=== PATIENT | male | born 1945 | race Caucasian/White ===

== ENCOUNTER 2017-05-28 17:51 | Inpatient (IN) | payer MEDICAID ==
[2017-05-28] MEDS: DOPamine 400mg/250ml D5W 400 MG/250 ML BAG IV PRN (18:00)
[2017-05-28] MEDS ORDERED: Phenylephrine 10 mg/ml Inj ONE (18:04)
[2017-05-28] MEDS ORDERED: Midazolam 2 MG/2 ML VIAL ONE (18:04)
[2017-05-28] MEDS ORDERED: Iodixanol 320 MG/ML 200 ML BOTTLE IV ONE (18:05)
[2017-05-28] MEDS ORDERED: Nitroglycerin 50mg in D5W 0 MG/0 ML BOTTLE IV ONE (18:05)
[2017-05-28 18:07] LABS: BASO % 0.5 % (0.0-2.0); EOS # 0.1 K/uL (0.0-0.7); EOS % 1.1 % (0.0-4.0); HEMATOCRIT 33.4 % (35.0-51.0); LYMPH # 3.1 K/uL (1.0-4.3); LYMPH % 35.4 % (20.0-40.0); MEAN PLATELET VOLUME 8.7 fL (7.2-11.7); MONO # 0.6 K/uL (0.0-0.8); MONO % 6.7 % (0.0-10.0); NRBC % 0.1 % (0.0-2.0); RED CELL DISTRIBUTION WIDTH 15.3 % (11.5-14.5); WHITE BLOOD COUNT 8.7 K/uL (4.8-10.8)
[2017-05-28] MEDS ORDERED: DOPamine 400mg/250ml D5W 400 MG/250 ML BAG IV ONE (18:10)
[2017-05-28 18:27] LABS: CHLORIDE 99 mmol/L (98-107); SODIUM 130 mmol/L (132-148)
[2017-05-28 18:28] LABS: POTASSIUM 4.8 mmol/L (3.6-5.2)
[2017-05-28 18:30] LABS: ALB/GLOB RATIO 1.2 (1.0-2.1); ALKALINE PHOSPHATASE 45 U/L (38-126); AST/SGOT 49 U/L (17-59); BILIRUBIN,TOTAL 0.6 mg/dL (0.2-1.3); BLOOD UREA NITROGEN 15 mg/dL (9-20); CARBON DIOXIDE 17 mmol/L (22-30); GFR AFRICAN-AMERICAN > 60
[2017-05-28 18:31] LABS: ALT/SGPT 30 U/L (21-72); CALCIUM 8.5 mg/dl (8.6-10.4)
[2017-05-28 18:32] LABS: GLUCOSE,RANDOM 441 mg/dL (75-110)
[2017-05-28] MEDS ORDERED: Etomidate 20 mg/10ml Inj IV ONE ×2 (18:53→20:04)
[2017-05-28] MEDS ORDERED: Rocuronium 10 mg/ml (5 ml) IV ONE ×2 (18:53→20:04)
[2017-05-28] MEDS ORDERED: Iodixanol 320 MG/ML 100 ML BOTTLE IV ONE (19:02)
[2017-05-28] MEDS ORDERED: Atropine Sulfate 1 mg/ml Vial (1 ml) IVP ONE (20:04)
--- NOTE | 2017-05-28 20:58 | C.PDOC ---
History Of Present Illness 71 y/o male, with PMHx of HTN and Hyperlipidemia, presents to the ED via EMS for evaluation of chest pain which began prior to arrival. EMS was called on site and notification was given regarding a code heart prior to patient's arrival. Upon ED arrival, patient was found to be diaphoretic, hypotensive, and lethargic, bradycardic. Patient was intubated upon arrival. atropine, transcutaneous pacing initiated. limited hx provided. Additional history limited secondary to patient's clinical condition. Time Seen by Provider: 05/28/17 17:54 Chief Complaint (Nursing): Chest Pain History Per: Patient, EMS History/Exam Limitations: clinical condition Onset/Duration Of Symptoms: Hrs Current Symptoms Are (Timing): Still Present Quality: "Pain" Associated Symptoms: Diaphoresis Additional History Per: Patient, EMS Past Medical History Reviewed: Historical Data, Nursing Documentation, Vital Signs Vital Signs: Last Vital Signs Temp 99 F 05/31/17 04:00 Pulse 170 H 05/31/17 07:49 Resp 31 H 05/31/17 07:08 BP 121/90 05/31/17 07:49 Pulse Ox 100 05/31/17 07:08 - Medical History PMH: HTN, Hyperlipidemia Surgical History: No Surg Hx Family History: States: Unknown Family Hx - Social History Hx Alcohol Use: No Hx Substance Use: No Review Of Systems Review Of Systems: ROS cannot be obtained secondary to pt's inabilty to answer questions. Physical Exam - Physical Exam Appears: Non-toxic Skin: Normal Color, Warm, Dry Head: Atraumatic, Normacephalic Eye(s): bilateral: Normal Inspection Oral Mucosa: Moist Neck: Supple Chest: Symmetrical, No Deformity, No Tenderness Respiratory: Rales (crackles at bases ) Extremity: Normal ROM, Capillary Refill (less than 2 seconds ) Neurological/Psych: Oriented x3, Normal Speech, Normal Cognition Gait: Unable To Assess ED Course And Treatment - Laboratory Results Result Diagrams: 05/31/17 06:18 05/31/17 06:16 O2 Sat by Pulse Oximetry: 100 (on RA) Pulse Ox Interpretation: Normal Critical Care Time - Critical Care Note Total Time (in mins): 90 Documented critical care: time excludes all time spent performing seperately billable procedures. Endotracheal Intubation - Endotracheal Intubation Intubated With ETT Size: 8 Intubated: Orally Pre-Intubation Airway Assessment: Ventilated And Oxygenated Medications Used During Pre-Intubation: Etomidate Paralyzed With: Rocuronium Post-Intubation Assessment: ETT Secured AT (cm): (23), Breath Sounds Equal Bilat , Color Change W/End Tidal CO2 Detector, Oxygen Saturation: (100) Medical Decision Making Medical Decision Making: coide heart activation- pt bradycardic, lethargic. atropine and transcutanous pacing initiated. dr saravia bedside. central venous access placed. Impression: 71y/o male with chest pain Plan: * labs * EKG * CXR Progress: labs, EKG, and CXR ordered and reviewed. etomidate IV, Aspirin PO, Brilinta PO, Dopamine IV, Heparin IV, androcurunium IV ordered. Patient underwent transcutaneous cardiac pacing. Case discussed with Dr. Saravia (chemical production technician), who later arrived in ED. Patient underwent intubation and was accepted to hospital admission under Dr. Ramos's service. Dr. Hutchison made aware. Patient was transported to labeling machine operator with hospitalist and labeling machine operator team on bedside. Disposition - Disposition Disposition: HOSPITALIZED Disposition Time: 07:00 Condition: CRITICAL - Clinical Impression Clinical Impression: STEMI (ST elevation myocardial infarction), Cardiogenic shock, Bradycardia - Scribe Statement The provider has reviewed the documentation as recorded by the Scribe (Enedina Amanda) Provider Attestation: All medical record entries made by the Scribe were at my direction and personally dictated by me. I have reviewed the chart and agree that the record accurately reflects my personal performance of the history, physical exam, medical decision making, and the department course for this patient. I have also personally directed, reviewed, and agree with the discharge instructions and disposition.
--- NOTE | 2017-05-28 22:17 | CP.PCM.CON ---
History of Present Illness - History of Present Illness History of Present Illness: 71 y/o male, with PMHx of HTN ,DM and Hyperlipidemia, presents to the ED via EMS for evaluation of chest pain which began prior to arrival. Upon ED arrival, patient was found to be diaphoretic, hypotensive, and lethargic. Patient was intubated in ER . Code heart intiated,patient had Cardiac Cath,insertion of transvenous pacemaker,IABP and 2 stents. History from chart.Patient intubated unable to get history.Unable to contact family Past Patient History - Past Social History Smoking Status: poor histo - CARDIAC Hx Hypertension: Yes - ENDOCRINE/METABOLIC Hx Diabetes Mellitus Type 2: Yes - PSYCHIATRIC Hx Substance Use: No Meds Allergies/Adverse Reactions: Allergies Allergy/AdvReac Type Severity Reaction Status Date / Time No Known Allergies Allergy Unverified 05/28/17 18:38 - Medications Medications: Current Medications Dopamine HCl/Dextrose (Dopamine 400mg/250ml D5w) 400 mg in 250 mls @ 6 mls/hr IV .Q24H PRN; Protocol; 2 MCG/KG/MIN PRN Reason: TITRATE PER MD ORDER Last Admin: 05/28/17 18:00 Dose: 2 mcg/kg/min, 6 mls/hr Physical Exam - Constitutional Appears: Other Additional comments: Orally intubated.no response to pain or verbal commands - Head Exam Head Exam: ATRAUMATIC, NORMAL INSPECTION, NORMOCEPHALIC - Eye Exam Additional comments: pupils equal with sluggish reaction to light - ENT Exam ENT Exam: Mucous Membranes Moist - Neck Exam Neck exam: Positive for: Normal Inspection - Respiratory Exam Respiratory Exam: Clear to Auscultation Bilateral - Cardiovascular Exam Cardiovascular Exam: Tachycardia, Systolic Murmur - GI/Abdominal Exam GI & Abdominal Exam: Normal Bowel Sounds, Soft - Extremities Exam Extremities exam: Negative for: pedal edema Additional comments: left leg in dressing. no edema.left DP pulse heard on doppler - Neurological Exam Neurological exam: Altered - Skin Skin Exam: Intact Results - Vital Signs Recent Vital Signs: Last Vital Signs Temp 96.1 F L 05/28/17 17:55 Pulse 40 L 05/28/17 18:00 Resp 16 05/28/17 18:00 BP 70/41 L 05/28/17 18:00 Pulse Ox 100 05/28/17 21:47 - Labs Result Diagrams: 05/28/17 18:02 05/28/17 18:02 - EKG Data EKG Interpreted by: Myself - Imaging and Cardiology Chest x-ray Status: Pending Assessment & Plan - Assessment and Plan (Free Text) Assessment: ^[age] y/o male with HTN,DM,Hyperlipidemia brought in with chest pain s/p Cardiac cath 1.Cardiac CAD/DE Code Heart/HTN/Hyperlipidemia s/p 2 stents , Transvenous pacemaker and IABP Patient hypotensive in ER,dopamine started,tapered and Discontinued after stents. Plavix ,aspirin given discussed with Mend Worker Start beta blockers tomorrow if BP remains stable 2.Pulmonary Respiratory failure on Ventilator pt hypothermic with low saturation.ABG with metabolic acidosis and SaO2 of 98% Chest Xray 3.Endocrine DM-insulin coverage 4.Neuro- patient with sluggish pupillary reaction with spontaneous respirations
[2017-05-28 23:24] LABS: BASO # 0.1 K/uL (0.0-0.2); BASO % 0.5 % (0.0-2.0); EOS % 0.2 % (0.0-4.0); HEMATOCRIT 34.2 % (35.0-51.0); LYMPH % 8.1 % (20.0-40.0); MEAN CORPUSCULAR HEMOGLOBIN 29.6 pg (27.0-31.0); MEAN CORPUSCULAR HGB CONC 32.5 g/dL (33.0-37.0); MEAN PLATELET VOLUME 8.5 fL (7.2-11.7); MONO % 7.8 % (0.0-10.0); PLATELET COUNT 110 K/uL (130-400); RED CELL DISTRIBUTION WIDTH 15.6 % (11.5-14.5); WHITE BLOOD COUNT 12.2 K/uL (4.8-10.8)
[2017-05-28 23:32] LABS: CHLORIDE 100 mmol/L (98-107); SODIUM 131 mmol/L (132-148)
[2017-05-28 23:34] LABS: GFR AFRICAN-AMERICAN > 60
[2017-05-28 23:35] LABS: BLOOD UREA NITROGEN 17 mg/dL (9-20); CALCIUM 7.8 mg/dl (8.6-10.4); CARBON DIOXIDE 19 mmol/L (22-30); POTASSIUM 6.1 mmol/L (3.6-5.2)
[2017-05-28] MEDS: (Novolin R) Insulin Human Regular 100 units/ml vial SC SCH (23:37)
[2017-05-28 23:40] LABS: GLUCOSE,RANDOM 510 mg/dL (75-110)
[2017-05-28 23:49] LABS: BASOPHIL 1 % (0-2); NEUTROPHIL 81 % (50-75); TOTAL CELLS COUNTED 100
[2017-05-29] MEDS ORDERED: Dextrose 50% SYRINGE Inj (50 ml) IV STA ×2 (00:35→17:47)
[2017-05-29] MEDS ORDERED: (Novolin R) Insulin Human Regular 100 units/ml vial IV ONE (00:35)
[2017-05-29 01:03] LABS: ABG MECHANICAL RATE 16; ARTERIAL BLOOD GAS MODE PRVC; ARTERIAL BLOOD HGB O2 SAT 97.2 % (95.0-98.0); ATERIAL BLOOD GAS PEEP 5; CARBOXYHEMOGLOBIN 1.3 % (0.5-1.5); DRAW SITE RB; HHB 0.6 % (0.0-5.0); METHEMOGLOBIN 0.9 % (0.0-3.0)
[2017-05-29] MEDS: Propofol 10 mg/ml 1,000 MG/100 ML VIAL IV PRN ×2 (01:11→18:00)
[2017-05-29] MEDS ORDERED: (Novolin R) Insulin Human Regular 100 units/ml vial SC ONE ×2 (01:49→03:12)
[2017-05-29] MEDS ORDERED: Sod Polystyrene Sulf 15 gm/60 ml Oral Susp PO ONE (03:08)
--- NOTE | 2017-05-29 03:19 | CARDCATH ---
PROCEDURE DATE: 05/29/2017 INDICATIONS: Mr. Nickolas Staples is a 71-year-old male with past medical history significant for hypertension, diabetes, hyperlipidemia, CAD, peripheral vascular disease, smoking who was brought in by EMS for episode of chest pain and concerns for ST-elevation OH. The patient in the emergency room became bradycardic, went into cardiogenic shock, requiring intubation, and central line placement for initiation of pressors and inotropic support. He was subsequently brought to the [facility] for evaluation and treatment of cardiogenic shock and acute ST-elevation OH. PROCEDURES PERFORMED: 1. Left heart catheterization with selective left and right coronary angiogram. 2. Left ventriculogram. 3. Right heart catheterization with hemodynamics, saturation, intraaortic balloon pump. 4. Temporary transvenous pacemaker. 5. Percutaneous transluminal coronary angioplasty stenting of left circumflex coronary artery with deployment of 3.5 x 18 mm Xience drug-eluting stent x2 with degeneration from 100% down to less than 0% improvement in BREANNA flow from BREANNA 0 to BREANNA 3. TECHNIQUES OF PROCEDURE: After obtaining informed consent, the patient was brought in emergently from the emergency room to the [facility] and underwent an emergent left heart catheterization. Selective angiogram of the left and right coronary system were obtained. ANGIOGRAPHIC FINDINGS: The left main is a short bifurcation to the left circumflex with left anterior descending artery. Ostial LAD has 65% stenosis, mid LAD 50% stenosis. It gives off two small diagonal branches. The distal LAD has 70% stenosis. The left circumflex proximal 100% BREANNA flow with BREANNA 0 flow. RCA small, nondominant with proximal 100% PACKING AND STAMPING MACHINE OPERATOR. Subsequently intraaortic balloon pump was placed for hemodynamic support. At this point, over an EBU 6-Icelandic guide Whisper wire was negotiated through the 100% occluded left circumflex artery. Pre-dilatation of the lesion was done with good pentecostalism of flow in the left circumflex, the same was a large left dominant system. Subsequently, the lesion was pre dilated with balloons and then subsequently stented with a 3.5 x 18 mm Xience drug-eluting stent x2. Finally, angiograms done showed good lesion reduction and BREANNA 3 flow in the circumflex territory. At this point, a right heart catheterization was performed, which showed RA pressures, mean were 22, RV end-diastolic 24, PA mean 46 with a wedge of 39. Cardiac output was 6.2 with a cardiac index of 3.6. IMPRESSION: 1. Acute ST-elevation myocardial infarction involving the circumflex coronary artery. 2. Acute cardiogenic shock. 3. Decompensated heart failure. 4. Left ventricular ejection fraction of 30% to 35% with inferoseptal and inferolateral wall hypokinesis. RECOMMENDATIONS: The patient is to be transferred to ICU in critical condition on intra-aortic balloon pump support, inotropic and pressor support as needed. Dual-antiplatelet therapy for 1 year. Further titration based on clinical response and hemodynamic course. Rhys Gu MD MTDD
[2017-05-29 05:16] LABS: ABG MECHANICAL RATE 16; ARTERIAL BLOOD GAS MODE PRVC; ARTERIAL BLOOD HGB O2 SAT 96.9 % (95.0-98.0); ATERIAL BLOOD GAS PEEP 5; DRAW SITE RB; METHEMOGLOBIN 1.1 % (0.0-3.0)
[2017-05-29] MEDS: (Novolin R) Insulin Human Regular 100 units/ml vial SC SCH ×3 (06:08→18:02)
[2017-05-29 06:30] LABS: BASO % 0.2 % (0.0-2.0); EOS % 0.3 % (0.0-4.0); HEMATOCRIT 34.1 % (35.0-51.0); LYMPH # 0.6 K/uL (1.0-4.3); MEAN CELL VOLUME 90.3 fL (80.0-94.0); MEAN CORPUSCULAR HGB CONC 33.2 g/dL (33.0-37.0); MEAN PLATELET VOLUME 9.3 fL (7.2-11.7); MONO # 0.8 K/uL (0.0-0.8); MONO % 9.1 % (0.0-10.0); NRBC % 0.1 % (0.0-2.0); PLATELET COUNT 118 K/uL (130-400); RED CELL DISTRIBUTION WIDTH 15.8 % (11.5-14.5); WHITE BLOOD COUNT 8.4 K/uL (4.8-10.8)
--- NOTE | 2017-05-29 07:01 | RAD ---
PROCEDURE: CHEST RADIOGRAPH, 1 VIEW HISTORY: intubated COMPARISON: None available. FINDINGS: Endotracheal tube is in placed terminating several cm above the aguila above below the level of clavicles. The J-tube is in place terminate at the left upper quadrant abdomen. . LUNGS: Left perihilar, lateral and retrocardiac infiltrate is identified, borderline in the right perihilar region. PLEURA: No pneumothorax or pleural fluid seen. CARDIOVASCULAR: Borderline pulmonary venous congestion. Cardiac silhouette upper limits of normal. OSSEOUS STRUCTURES: No significant abnormalities. VISUALIZED UPPER ABDOMEN: Normal. OTHER FINDINGS: None. IMPRESSION: Mid to inferior left pulmonary infiltrates are identified as well as possible right perihilar infiltrate. CHF is borderline and not completely excluded. Clinically correlate further. No pneumothorax or pleural effusion.
[2017-05-29 07:03] LABS: ALB/GLOB RATIO 1.1 (1.0-2.1); BILIRUBIN,TOTAL 0.4 mg/dL (0.2-1.3); CALCIUM 8.3 mg/dl (8.6-10.4); MAGNESIUM 1.6 mg/dL (1.6-2.3); PHOSPHOROUS 3.8 mg/dL (2.5-4.5); POTASSIUM 5.7 mmol/L (3.6-5.2)
--- NOTE | 2017-05-29 08:16 | CP.CCUPN ---
<Perfecto Veliz - Last Filed: 05/29/17 15:31> CCU Subjective - Physician Review Subjective (Free Text): Patient seen and examined at bedside. Per nurse, patient has dark brown secretions from feeding tube and medications cannot be given orally. He is intubated and sedated therefore subjective history was unable to be obtained because of current status. Medical records, labs and imaging were reviewed. Case was discussed with house staff. Patient's family is aware and will be visiting today. 05/29/17 15:31 CCU Objective - Vital Signs / Intake & Output Vital Signs (Last 4 hours): Vital Signs Temp Pulse Resp BP Pulse Ox 05/29/17 07:45 121 H 28 H 72/59 L 100 05/29/17 07:01 101 H 30 H 97/50 L 100 05/29/17 07:00 98.4 F 107 H 32 H 98 05/29/17 06:46 111 H 30 H 109/66 99 05/29/17 06:45 118 H 30 H 99 05/29/17 06:31 112 H 31 H 111/53 L 98 05/29/17 06:30 116 H 30 H 98 05/29/17 06:16 82 31 H 112/50 L 96 05/29/17 06:15 87 31 H 99 05/29/17 06:01 95 H 40 H 94/53 L 98 05/29/17 06:00 94 H 40 H 98 05/29/17 05:46 99 H 30 H 120/53 L 97 05/29/17 05:45 106 H 27 H 98 05/29/17 05:31 118 H 28 H 107/62 100 05/29/17 05:30 116 H 29 H 100 05/29/17 05:16 92 H 29 H 105/52 L 100 05/29/17 05:15 100 H 28 H 100 05/29/17 05:01 102 H 28 H 105/61 100 05/29/17 05:00 89 29 H 100 05/29/17 04:46 83 30 H 104/44 L 100 05/29/17 04:45 89 29 H 100 05/29/17 04:32 82 29 H 111/47 L 98 05/29/17 04:30 82 28 H 97 05/29/17 04:16 85 29 H 118/50 L 97 05/29/17 04:15 82 29 H 96 Intake and Output (Last 8hrs): Intake & Output 05/28/17 05/29/17 05/29/17 22:59 06:59 14:59 Intake Total 50 402.2 229.7 Output Total 60 750 25 Balance -10 -347.8 204.7 Weight 168 lb 12.8 oz Intake: IV 64 190 Intake, IV Amount 238.2 39.7 Right Medial Port Femoral 13.2 2.2 Right Proximal Port 225.0 37.5 Femoral Oral 50 0 Tube Feeding 100 0 Output: Urine 60 750 25 Urethral (Sifuentes) 60 750 25 Stool 0 0 Emesis 0 0 0 Other: Voiding Method Indwelling Catheter # Bowel Movements 0 0 - Medications Active Medications: Active Medications Generic Name Dose Route Start Last Admin Trade Name Freq PRN Reason Stop Dose Admin Aspirin 81 mg 05/29/17 10:00 Ecotrin PO DAILY [facility] Clopidogrel Bisulfate 75 mg 05/29/17 10:00 Plavix PO DAILY [facility] Famotidine 20 mg 05/28/17 22:45 05/28/17 23:28 Pepcid PO 20 mg BID [facility] Administration Dopamine HCl/Dextrose 400 mg in 250 mls @ 6 mls/hr 05/28/17 20:04 05/28/17 18 :00 Dopamine 400mg/250ml D5w IV 2 mcg/kg/min .Q24H PRN 6 mls/hr TITRATE PER MD ORDER Administration Protocol 2 MCG/KG/MIN Norepinephrine Bitartrate 4 mg 254 mls @ 15.24 mls/hr 05/28/17 23:08 07:45 / Sodium Chloride IV 11.81 mcg/min .[id number] PRN 45 mls/hr TITRATE PER MD ORDER Administration Protocol 4 MCG/MIN Propofol 1,000 mg in 100 mls @ 2.4 mls/hr 05/29/17 01:00 05/29/17 01:11 Diprivan IV 5 mcg/kg/min .Q24H PRN 2.4 mls/hr TITRATE PER MD ORDER Administration Protocol 5 MCG/KG/MIN Insulin Human Regular 0 unit 05/29/17 00:00 05/29/17 06:08 Novolin R SC 6 unit Q6 [facility] Administration Protocol Rosuvastatin Calcium 20 mg 05/29/17 22:00 Crestor PO HS [facility] - Patient Studies Lab Studies: Lab Studies 05/29/17 05/29/17 05/29/17 Range/Units 06:22 06:22 06:22 WBC 8.4 (4.8-10.8) K/uL RBC 3.78 L (4.40-5.90) Mil/uL Hgb 11.3 L (12.0-18.0) g/dL Hct 34.1 L (35.0-51.0) % MCV 90.3 (80.0-94.0) fL MCH 30.0 (27.0-31.0) pg MCHC 33.2 (33.0-37.0) g/dL RDW 15.8 H (11.5-14.5) % Plt Count 118 L (130-400) K/uL MPV 9.3 (7.2-11.7) fL Neut % (Auto) 83.4 H (50.0-75.0) % Lymph % (Auto) 7.0 L (20.0-40.0) % [place] % (Auto) 9.1 (0.0-10.0) % Eos % (Auto) 0.3 (0.0-4.0) % Baso % (Auto) 0.2 (0.0-2.0) % Neut # 7.0 (1.8-7.0) K/uL Lymph # 0.6 L (1.0-4.3) K/uL [place] # 0.8 (0.0-0.8) K/uL Eos # 0.0 (0.0-0.7) K/uL Baso # 0.0 (0.0-0.2) K/uL Neutrophils % (Manual) (50-75) % Band Neutrophils % (0-2) % Lymphocytes % (Manual) (20-40) % Monocytes % (Manual) (0-10) % Basophils % (Manual) (0-2) % Platelet Estimate (NORMAL) Puncture Site pCO2 (35-45) mm/Hg pO2 (80-100) mm/Hg HCO3 (21-28) mmol/L ABG pH (7.35-7.45) ABG Total CO2 (22-28) mmol/L ABG O2 Saturation (95-98) % ABG Base Excess (-2.0-3.0) mmol/L ABG Hemoglobin (11.7-17.4) g/dL ABG Carboxyhemoglobin (0.5-1.5) % POC ABG HHb (Measured) (0.0-5.0) % ABG Methemoglobin (0.0-3.0) % Bhanu Test A-a O2 Difference mm/Hg Respiratory Index Hgb O2 Saturation (95.0-98.0) % Vent Mode Mechanical Rate FiO2 % Tidal Volume PEEP Sodium 135 (132-148) mmol/L Potassium 5.7 H (3.6-5.2) mmol/L Chloride 100 (98-107) mmol/L Carbon Dioxide 19 L (22-30) mmol/L Anion Gap 22 H (10-20) BUN 20 (9-20) mg/dL Creatinine 1.7 H (0.8-1.5) MG/DL Est GFR ( Amer) 49 Est GFR (Non-Af Amer) 40 POC Glucose (mg/dL) (65-110) mg/dL Random Glucose 302 H (75-110) mg/dL Hemoglobin A1c 9.4 H (4.2-6.5) % Calcium 8.3 L (8.6-10.4) mg/dl Phosphorus 3.8 (2.5-4.5) mg/dL Magnesium 1.6 (1.6-2.3) mg/dL Total Bilirubin 0.4 (0.2-1.3) mg/dL ALT 383 H D (21-72) U/L Alkaline Phosphatase 60 (38-126) U/L Troponin I (0.00-0.120) ng/mL Total Protein 6.0 L (6.3-8.3) g/dL Albumin 3.2 L (3.5-5.0) g/dL Globulin 2.9 (2.2-3.9) gm/dL Albumin/Globulin Ratio 1.1 (1.0-2.1) 05/29/17 05/29/17 05/29/17 Range/Units 05:32 04:45 03:04 WBC (4.8-10.8) K/uL RBC (4.40-5.90) Mil/uL Hgb (12.0-18.0) g/dL Hct (35.0-51.0) % MCV (80.0-94.0) fL MCH (27.0-31.0) pg MCHC (33.0-37.0) g/dL RDW (11.5-14.5) % Plt Count (130-400) K/uL MPV (7.2-11.7) fL Neut % (Auto) (50.0-75.0) % Lymph % (Auto) (20.0-40.0) % [place] % (Auto) (0.0-10.0) % Eos % (Auto) (0.0-4.0) % Baso % (Auto) (0.0-2.0) % Neut # (1.8-7.0) K/uL Lymph # (1.0-4.3) K/uL [place] # (0.0-0.8) K/uL Eos # (0.0-0.7) K/uL Baso # (0.0-0.2) K/uL Neutrophils % (Manual) (50-75) % Band Neutrophils % (0-2) % Lymphocytes % (Manual) (20-40) % Monocytes % (Manual) (0-10) % Basophils % (Manual) (0-2) % Platelet Estimate (NORMAL) Puncture Site Rb pCO2 27 L (35-45) mm/Hg pO2 239 H (80-100) mm/Hg HCO3 18.1 L (21-28) mmol/L ABG pH 7.36 (7.35-7.45) ABG Total CO2 16.1 L (22-28) mmol/L ABG O2 Saturation 99.0 H (95-98) % ABG Base Excess -8.7 L (-2.0-3.0) mmol/L ABG Hemoglobin 12.1 (11.7-17.4) g/dL ABG Carboxyhemoglobin 1.0 (0.5-1.5) % POC ABG HHb (Measured) 1.0 (0.0-5.0) % ABG Methemoglobin 1.1 (0.0-3.0) % Bhanu Test Na A-a O2 Difference 226.0 mm/Hg Respiratory Index 0.9 Hgb O2 Saturation 96.9 (95.0-98.0) % Vent Mode Prvc Mechanical Rate 16 FiO2 70.0 % Tidal Volume 500 PEEP 5 Sodium (132-148) mmol/L Potassium (3.6-5.2) mmol/L Chloride (98-107) mmol/L Carbon Dioxide (22-30) mmol/L Anion Gap (10-20) BUN (9-20) mg/dL Creatinine (0.8-1.5) MG/DL Est GFR ( Amer) Est GFR (Non-Af Amer) POC Glucose (mg/dL) 334 H 340 H (65-110) mg/dL Random Glucose (75-110) mg/dL Hemoglobin A1c (4.2-6.5) % Calcium (8.6-10.4) mg/dl Phosphorus (2.5-4.5) mg/dL Magnesium (1.6-2.3) mg/dL Total Bilirubin (0.2-1.3) mg/dL ALT (21-72) U/L Alkaline Phosphatase (38-126) U/L Troponin I (0.00-0.120) ng/mL Total Protein (6.3-8.3) g/dL Albumin (3.5-5.0) g/dL Globulin (2.2-3.9) gm/dL Albumin/Globulin Ratio (1.0-2.1) 05/29/17 05/29/17 05/28/17 Range/Units 01:46 01:45 23:38 WBC (4.8-10.8) K/uL RBC (4.40-5.90) Mil/uL Hgb (12.0-18.0) g/dL Hct (35.0-51.0) % MCV (80.0-94.0) fL MCH (27.0-31.0) pg MCHC (33.0-37.0) g/dL RDW (11.5-14.5) % Plt Count (130-400) K/uL MPV (7.2-11.7) fL Neut % (Auto) (50.0-75.0) % Lymph % (Auto) (20.0-40.0) % [place] % (Auto) (0.0-10.0) % Eos % (Auto) (0.0-4.0) % Baso % (Auto) (0.0-2.0) % Neut # (1.8-7.0) K/uL Lymph # (1.0-4.3) K/uL [place] # (0.0-0.8) K/uL Eos # (0.0-0.7) K/uL Baso # (0.0-0.2) K/uL Neutrophils % (Manual) (50-75) % Band Neutrophils % (0-2) % Lymphocytes % (Manual) (20-40) % Monocytes % (Manual) (0-10) % Basophils % (Manual) (0-2) % Platelet Estimate (NORMAL) Puncture Site pCO2 (35-45) mm/Hg pO2 (80-100) mm/Hg HCO3 (21-28) mmol/L ABG pH (7.35-7.45) ABG Total CO2 (22-28) mmol/L ABG O2 Saturation (95-98) % ABG Base Excess (-2.0-3.0) mmol/L ABG Hemoglobin (11.7-17.4) g/dL ABG Carboxyhemoglobin (0.5-1.5) % POC ABG HHb (Measured) (0.0-5.0) % ABG Methemoglobin (0.0-3.0) % Bhanu Test A-a O2 Difference mm/Hg Respiratory Index Hgb O2 Saturation (95.0-98.0) % Vent Mode Mechanical Rate FiO2 % Tidal Volume PEEP Sodium (132-148) mmol/L Potassium 5.5 H (3.6-5.2) mmol/L Chloride (98-107) mmol/L Carbon Dioxide (22-30) mmol/L Anion Gap (10-20) BUN (9-20) mg/dL Creatinine (0.8-1.5) MG/DL Est GFR ( Amer) Est GFR (Non-Af Amer) POC Glucose (mg/dL) > 500 H* > 500 H* (65-110) mg/dL Random Glucose (75-110) mg/dL Hemoglobin A1c (4.2-6.5) % Calcium (8.6-10.4) mg/dl Phosphorus (2.5-4.5) mg/dL Magnesium (1.6-2.3) mg/dL Total Bilirubin (0.2-1.3) mg/dL ALT (21-72) U/L Alkaline Phosphatase (38-126) U/L Troponin I (0.00-0.120) ng/mL Total Protein (6.3-8.3) g/dL Albumin (3.5-5.0) g/dL Globulin (2.2-3.9) gm/dL Albumin/Globulin Ratio (1.0-2.1) 05/28/17 05/28/17 Range/Units 23:22 23:22 WBC 12.2 H (4.8-10.8) K/uL RBC 3.76 L (4.40-5.90) Mil/uL Hgb 11.1 L (12.0-18.0) g/dL Hct 34.2 L (35.0-51.0) % MCV 91.0 (80.0-94.0) fL MCH 29.6 (27.0-31.0) pg MCHC 32.5 L (33.0-37.0) g/dL RDW 15.6 H (11.5-14.5) % Plt Count 110 L D (130-400) K/uL MPV 8.5 (7.2-11.7) fL Neut % (Auto) 83.4 H (50.0-75.0) % Lymph % (Auto) 8.1 L (20.0-40.0) % [place] % (Auto) 7.8 (0.0-10.0) % Eos % (Auto) 0.2 (0.0-4.0) % Baso % (Auto) 0.5 (0.0-2.0) % Neut # 10.2 H (1.8-7.0) K/uL Lymph # 1.0 (1.0-4.3) K/uL [place] # 1.0 H (0.0-0.8) K/uL Eos # 0.0 (0.0-0.7) K/uL Baso # 0.1 (0.0-0.2) K/uL Neutrophils % (Manual) 81 H (50-75) % Band Neutrophils % 1 (0-2) % Lymphocytes % (Manual) 12 L (20-40) % Monocytes % (Manual) 5 (0-10) % Basophils % (Manual) 1 (0-2) % Platelet Estimate Slightly decreased L (NORMAL) Puncture Site pCO2 (35-45) mm/Hg pO2 (80-100) mm/Hg HCO3 (21-28) mmol/L ABG pH (7.35-7.45) ABG Total CO2 (22-28) mmol/L ABG O2 Saturation (95-98) % ABG Base Excess (-2.0-3.0) mmol/L ABG Hemoglobin (11.7-17.4) g/dL ABG Carboxyhemoglobin (0.5-1.5) % POC ABG HHb (Measured) (0.0-5.0) % ABG Methemoglobin (0.0-3.0) % Bhanu Test A-a O2 Difference mm/Hg Respiratory Index Hgb O2 Saturation (95.0-98.0) % Vent Mode Mechanical Rate FiO2 % Tidal Volume PEEP Sodium 131 L (132-148) mmol/L Potassium 6.1 H (3.6-5.2) mmol/L Chloride 100 (98-107) mmol/L Carbon Dioxide 19 L (22-30) mmol/L Anion Gap 18 (10-20) BUN 17 (9-20) mg/dL Creatinine 1.1 (0.8-1.5) MG/DL Est GFR ( Amer) > 60 Est GFR (Non-Af Amer) > 60 POC Glucose (mg/dL) (65-110) mg/dL Random Glucose 510 H* (75-110) mg/dL Hemoglobin A1c (4.2-6.5) % Calcium 7.8 L (8.6-10.4) mg/dl Phosphorus (2.5-4.5) mg/dL Magnesium (1.6-2.3) mg/dL Total Bilirubin (0.2-1.3) mg/dL ALT (21-72) U/L Alkaline Phosphatase (38-126) U/L Troponin I (0.00-0.120) ng/mL Total Protein (6.3-8.3) g/dL Albumin (3.5-5.0) g/dL Globulin (2.2-3.9) gm/dL Albumin/Globulin Ratio (1.0-2.1) Laboratory Results - last 24 hr 05/28/17 05/28/17 05/28/17 23:22 23:22 23:38 WBC 12.2 H RBC 3.76 L Hgb 11.1 L Hct 34.2 L MCV 91.0 MCH 29.6 MCHC 32.5 L RDW 15.6 H Plt Count 110 L D MPV 8.5 Neut % (Auto) 83.4 H Lymph % (Auto) 8.1 L [place] % (Auto) 7.8 Eos % (Auto) 0.2 Baso % (Auto) 0.5 Neut # 10.2 H Lymph # 1.0 [place] # 1.0 H Eos # 0.0 Baso # 0.1 Neutrophils % (Manual) 81 H Band Neutrophils % 1 Lymphocytes % (Manual) 12 L Monocytes % (Manual) 5 Basophils % (Manual) 1 Platelet Estimate Slightly decreased L Puncture Site pCO2 pO2 HCO3 ABG pH ABG Total CO2 ABG O2 Saturation ABG Base Excess ABG Hemoglobin ABG Carboxyhemoglobin POC ABG HHb (Measured) ABG Methemoglobin Bhanu Test A-a O2 Difference Respiratory Index Hgb O2 Saturation Vent Mode Mechanical Rate FiO2 Tidal Volume PEEP Sodium 131 L Potassium 6.1 H Chloride 100 Carbon Dioxide 19 L Anion Gap 18 BUN 17 Creatinine 1.1 Est GFR ( Amer) > 60 Est GFR (Non-Af Amer) > 60 POC Glucose (mg/dL) > 500 H* Random Glucose 510 H* Hemoglobin A1c Calcium 7.8 L Phosphorus Magnesium Total Bilirubin ALT Alkaline Phosphatase Troponin I Total Protein Albumin Globulin Albumin/Globulin Ratio 05/29/17 05/29/17 05/29/17 01:45 01:46 03:04 WBC RBC Hgb Hct MCV MCH MCHC RDW Plt Count MPV Neut % (Auto) Lymph % (Auto) [place] % (Auto) Eos % (Auto) Baso % (Auto) Neut # Lymph # [place] # Eos # Baso # Neutrophils % (Manual) Band Neutrophils % Lymphocytes % (Manual) Monocytes % (Manual) Basophils % (Manual) Platelet Estimate Puncture Site pCO2 pO2 HCO3 ABG pH ABG Total CO2 ABG O2 Saturation ABG Base Excess ABG Hemoglobin ABG Carboxyhemoglobin POC ABG HHb (Measured) ABG Methemoglobin Bhanu Test A-a O2 Difference Respiratory Index Hgb O2 Saturation Vent Mode Mechanical Rate FiO2 Tidal Volume PEEP Sodium Potassium 5.5 H Chloride Carbon Dioxide Anion Gap BUN Creatinine Est GFR ( Amer) Est GFR (Non-Af Amer) POC Glucose (mg/dL) > 500 H* 340 H Random Glucose Hemoglobin A1c Calcium Phosphorus Magnesium Total Bilirubin ALT Alkaline Phosphatase Troponin I Total Protein Albumin Globulin Albumin/Globulin Ratio 05/29/17 05/29/17 05/29/17 04:45 05:32 06:22 WBC 8.4 RBC 3.78 L Hgb 11.3 L Hct 34.1 L MCV 90.3 MCH 30.0 MCHC 33.2 RDW 15.8 H Plt Count 118 L MPV 9.3 Neut % (Auto) 83.4 H Lymph % (Auto) 7.0 L [place] % (Auto) 9.1 Eos % (Auto) 0.3 Baso % (Auto) 0.2 Neut # 7.0 Lymph # 0.6 L [place] # 0.8 Eos # 0.0 Baso # 0.0 Neutrophils % (Manual) Band Neutrophils % Lymphocytes % (Manual) Monocytes % (Manual) Basophils % (Manual) Platelet Estimate Puncture Site Rb pCO2 27 L pO2 239 H HCO3 18.1 L ABG pH 7.36 ABG Total CO2 16.1 L ABG O2 Saturation 99.0 H ABG Base Excess -8.7 L ABG Hemoglobin 12.1 ABG Carboxyhemoglobin 1.0 POC ABG HHb (Measured) 1.0 ABG Methemoglobin 1.1 Bhanu Test Na A-a O2 Difference 226.0 Respiratory Index 0.9 Hgb O2 Saturation 96.9 Vent Mode Prvc Mechanical Rate 16 FiO2 70.0 Tidal Volume 500 PEEP 5 Sodium Potassium Chloride Carbon Dioxide Anion Gap BUN Creatinine Est GFR ( Amer) Est GFR (Non-Af Amer) POC Glucose (mg/dL) 334 H Random Glucose Hemoglobin A1c Calcium Phosphorus Magnesium Total Bilirubin ALT Alkaline Phosphatase Troponin I Total Protein Albumin Globulin Albumin/Globulin Ratio 05/29/17 05/29/17 06:22 06:22 WBC RBC Hgb Hct MCV MCH MCHC RDW Plt Count MPV Neut % (Auto) Lymph % (Auto) [place] % (Auto) Eos % (Auto) Baso % (Auto) Neut # Lymph # [place] # Eos # Baso # Neutrophils % (Manual) Band Neutrophils % Lymphocytes % (Manual) Monocytes % (Manual) Basophils % (Manual) Platelet Estimate Puncture Site pCO2 pO2 HCO3 ABG pH ABG Total CO2 ABG O2 Saturation ABG Base Excess ABG Hemoglobin ABG Carboxyhemoglobin POC ABG HHb (Measured) ABG Methemoglobin Bhanu Test A-a O2 Difference Respiratory Index Hgb O2 Saturation Vent Mode Mechanical Rate FiO2 Tidal Volume PEEP Sodium 135 Potassium 5.7 H Chloride 100 Carbon Dioxide 19 L Anion Gap 22 H BUN 20 Creatinine 1.7 H Est GFR ( Amer) 49 Est GFR (Non-Af Amer) 40 POC Glucose (mg/dL) Random Glucose 302 H Hemoglobin A1c 9.4 H Calcium 8.3 L Phosphorus 3.8 Magnesium 1.6 Total Bilirubin 0.4 ALT 383 H D Alkaline Phosphatase 60 Troponin I Total Protein 6.0 L Albumin 3.2 L Globulin 2.9 Albumin/Globulin Ratio 1.1 EKG/Cardiology Studies: Cardiology / EKG Studies 05/29/17 07:00 ELECTROCARDIOGRAM Routine Comment: Mode Of Transportation: PORTABLE Reason For Exam: respiratory failure Fingerstick Blood Sugar Results: 340 Assessment/Plan - Assessment and Plan (Free Text) Assessment: 71 y/o male with HTN, DM, Hyperlipidemia brought in with chest pain s/p cardiac cath Cardiovascular: CAD/FL Code Heart/HTN/Hyperlipidemia - s/p 2 stents, Transvenous pacemaker and Intra-aortic baloon pump - on 1:1 monitoring - Patient hypotensive in ER, on dopamine drip titratable - will monitor HR - 05/29 Echo: moderate concentric LVH. Hyptrophic cardiomyopathy. Systolc function mod-severly impaired. LVEF 28%. Transmitral dopper - Grade I abnormal relaxation. - 05/29 EKG: widened QRS, Adi 43 bpm - Start beta blockers tomorrow if BP remains stable - [employer] Operator, Dr Gu, on board - [id number] - Aspirin 300mg rectal suppository daily - Plavix 75mg po daily - pt not able to tolerate oral medications today as pt with secretions - rosuvastatin 20mg po hs Pulmonary: Respiratory failure on Ventilator; left sided effusion - Intubated and sedated on Diprivan 1,000 mg - f/u daily Chest Xray - 1x dose Lasix 20 mg given ID: - 1x dose Zosyn 3.375 grm given for post-cath broad spectrum coverage Endocrine: DM-insulin coverage Neuro: patient with sluggish pupillary reaction with spontaneous respirations Prophylaxis: GI: pepcid 20mg iv - renal dosing DVT: plavix 75mg po daily - pt not able to tolerate oral medications today as pt with secretions Fluids: NS @ 40 cc/hr <Yan Campbell - Last Filed: 05/29/17 16:09> CCU Objective - Vital Signs / Intake & Output Vital Signs (Last 4 hours): Vital Signs Pulse Resp BP Pulse Ox 05/29/17 15:00 132 H 20 100 05/29/17 14:40 131 H 19 124/72 100 05/29/17 14:09 130 H 21 114/69 100 05/29/17 14:00 130 H 24 70/53 L 100 05/29/17 13:39 120/75 05/29/17 13:30 133 H 29 H 99 05/29/17 13:07 130 H 21 127/77 99 05/29/17 13:06 121/70 05/29/17 12:45 129 H 25 H 100 05/29/17 12:39 128 H 26 H 121/70 99 05/29/17 12:15 140 H 20 99 05/29/17 12:10 140 H 21 129/79 96 Intake and Output (Last 8hrs): Intake & Output 05/29/17 05/29/17 05/29/17 06:59 14:59 22:59 Intake Total 402.2 1193.7 80.4 Output Total 750 618 75 Balance -347.8 575.7 5.4 Weight 168 lb 12.8 oz Intake: IV 64 454 Intake, IV Amount 238.2 739.7 80.4 Right Distal Port 360 40 Right Medial Port Femoral 13.2 19.0 2.4 Right Proximal Port 225.0 322.5 30 Femoral rt proximal sideport 38.2 8 Oral 0 Tube Feeding 100 0 Output: Gastric Amount 450 Stomach 450 Urine 750 168 75 Urethral (Sifuentes) 750 168 75 Stool 0 Emesis 0 0 Other: Voiding Method Indwelling Catheter # Bowel Movements 0 0 - Medications Active Medications: Active Medications Generic Name Dose Route Start Last Admin Trade Name Freq PRN Reason Stop Dose Admin Aspirin 300 mg 05/29/17 12:00 05/29/17 12:[address] 300 mg DAILY ZULMA Administration Clopidogrel Bisulfate 75 mg 05/29/17 10:00 05/29/17 10:19 Plavix PO Not Given DAILY ZULMA Famotidine 20 mg 05/29/17 10:35 05/29/17 11:25 Pepcid IVP 20 mg DAILY ZULMA Administration Norepinephrine Bitartrate 4 mg 254 mls @ 15.24 mls/hr 05/28/17 23:08 14:00 / Sodium Chloride IV 9.84 mcg/min .[id number] PRN 37.5 mls/hr TITRATE PER MD ORDER Administration Protocol 4 MCG/MIN Propofol 1,000 mg in 100 mls @ 2.4 mls/hr 05/29/17 01:00 05/29/17 01:11 Diprivan IV 5 mcg/kg/min .Q24H PRN 2.4 mls/hr TITRATE PER MD ORDER Administration Protocol 5 MCG/KG/MIN Sodium Chloride 1,000 mls @ 40 mls/hr 05/29/17 10:00 05/29/17 10:00 Sodium Chloride 0.9% IV 40 mls/hr .Q24H ZULMA Administration Dopamine HCl/Dextrose 400 mg in 250 mls @ 14.356 mls/hr 05/29/17 12:29 12:15 Dopamine 400mg/250ml D5w IV 2.89 mcg/kg/min .[id number] PRN 8.3 mls/hr TITRATE PER MD ORDER Titration Protocol 5 MCG/KG/MIN Insulin Human Regular 0 unit 05/29/17 00:00 05/29/17 12:00 Novolin R SC Not Given Q6 ZULMA Protocol Rosuvastatin Calcium 20 mg 05/29/17 22:00 Crestor PO HS ZULMA - Patient Studies Lab Studies: Lab Studies 05/29/17 05/29/17 05/29/17 Range/Units 12:15 12:07 10:34 WBC 8.6 (4.8-10.8) K/uL RBC 3.72 L (4.40-5.90) Mil/uL Hgb 11.1 L (12.0-18.0) g/dL Hct 32.9 L (35.0-51.0) % MCV 88.6 (80.0-94.0) fL MCH 29.8 (27.0-31.0) pg MCHC 33.7 (33.0-37.0) g/dL RDW 15.4 H (11.5-14.5) % Plt Count 101 L (130-400) K/uL MPV 9.0 (7.2-11.7) fL Neut % (Auto) 77.5 H (50.0-75.0) % Lymph % (Auto) 11.6 L (20.0-40.0) % [place] % (Auto) 9.4 (0.0-10.0) % Eos % (Auto) 1.0 (0.0-4.0) % Baso % (Auto) 0.5 (0.0-2.0) % Neut # 6.6 (1.8-7.0) K/uL Lymph # 1.0 (1.0-4.3) K/uL [place] # 0.8 (0.0-0.8) K/uL Eos # 0.1 (0.0-0.7) K/uL Baso # 0.0 (0.0-0.2) K/uL Neutrophils % (Manual) (50-75) % Band Neutrophils % (0-2) % Lymphocytes % (Manual) (20-40) % Monocytes % (Manual) (0-10) % Basophils % (Manual) (0-2) % Platelet Estimate (NORMAL) Hypochromasia (manual) Poikilocytosis (manual Anisocytosis (manual) Ovalocytes Puncture Site pCO2 (35-45) mm/Hg pO2 (80-100) mm/Hg HCO3 (21-28) mmol/L ABG pH (7.35-7.45) ABG Total CO2 (22-28) mmol/L ABG O2 Saturation (95-98) % ABG Base Excess (-2.0-3.0) mmol/L ABG Hemoglobin (11.7-17.4) g/dL ABG Carboxyhemoglobin (0.5-1.5) % POC ABG HHb (Measured) (0.0-5.0) % ABG Methemoglobin (0.0-3.0) % Bhanu Test A-a O2 Difference mm/Hg Respiratory Index Hgb O2 Saturation (95.0-98.0) % Vent Mode Mechanical Rate FiO2 % Tidal Volume PEEP Sodium (132-148) mmol/L Potassium (3.6-5.2) mmol/L Chloride (98-107) mmol/L Carbon Dioxide (22-30) mmol/L Anion Gap (10-20) BUN (9-20) mg/dL Creatinine (0.8-1.5) MG/DL Est GFR ( Amer) Est GFR (Non-Af Amer) POC Glucose (mg/dL) 153 H (65-110) mg/dL Random Glucose (75-110) mg/dL Hemoglobin A1c (4.2-6.5) % Calcium (8.6-10.4) mg/dl Phosphorus (2.5-4.5) mg/dL Magnesium (1.6-2.3) mg/dL Total Bilirubin (0.2-1.3) mg/dL AST (17-59) U/L ALT (21-72) U/L Alkaline Phosphatase (38-126) U/L Troponin I (0.00-0.120) ng/mL Total Protein (6.3-8.3) g/dL Albumin (3.5-5.0) g/dL Globulin (2.2-3.9) gm/dL Albumin/Globulin Ratio (1.0-2.1) Urine Color Tamy (YELLOW) Urine Clarity Turbid (Clear) Urine pH 5.0 (5.0-8.0) Ur Specific [place] 1.020 (1.003-1.030) Urine Protein 3+ H (NEGATIVE) mg/dL Urine Glucose (UA) 3+ H (Normal) mg/dL Urine Ketones Negative (NEGATIVE) mg/dL Urine Blood 1+ H (NEGATIVE) Urine Nitrate Negative (NEGATIVE) Urine Bilirubin Negative (NEGATIVE) Urine Urobilinogen 2.0 (0.2-1.0) mg/dL Ur Leukocyte Esterase Neg (Negative) Kumar/uL Urine RBC (Auto) 82 H (0-3) /hpf Ur Squamous Epith Cells 1 (0-5) /hpf Amorphous Sediment Rare H (<OCC) /ul Urine Bacteria Few H (<OCC) 05/29/17 05/29/17 05/29/17 Range/Units 06:22 06:22 06:22 WBC 8.4 (4.8-10.8) K/uL RBC 3.78 L (4.40-5.90) Mil/uL Hgb 11.3 L (12.0-18.0) g/dL Hct 34.1 L (35.0-51.0) % MCV 90.3 (80.0-94.0) fL MCH 30.0 (27.0-31.0) pg MCHC 33.2 (33.0-37.0) g/dL RDW 15.8 H (11.5-14.5) % Plt Count 118 L (130-400) K/uL MPV 9.3 (7.2-11.7) fL Neut % (Auto) 83.4 H (50.0-75.0) % Lymph % (Auto) 7.0 L (20.0-40.0) % [place] % (Auto) 9.1 (0.0-10.0) % Eos % (Auto) 0.3 (0.0-4.0) % Baso % (Auto) 0.2 (0.0-2.0) % Neut # 7.0 (1.8-7.0) K/uL Lymph # 0.6 L (1.0-4.3) K/uL [place] # 0.8 (0.0-0.8) K/uL Eos # 0.0 (0.0-0.7) K/uL Baso # 0.0 (0.0-0.2) K/uL Neutrophils % (Manual) 73 (50-75) % Band Neutrophils % 9 H (0-2) % Lymphocytes % (Manual) 10 L (20-40) % Monocytes % (Manual) 8 (0-10) % Basophils % (Manual) (0-2) % Platelet Estimate Slightly decreased L (NORMAL) Hypochromasia (manual) Slight Poikilocytosis (manual Slight Anisocytosis (manual) Slight Ovalocytes Slight Puncture Site pCO2 (35-45) mm/Hg pO2 (80-100) mm/Hg HCO3 (21-28) mmol/L ABG pH (7.35-7.45) ABG Total CO2 (22-28) mmol/L ABG O2 Saturation (95-98) % ABG Base Excess (-2.0-3.0) mmol/L ABG Hemoglobin (11.7-17.4) g/dL ABG Carboxyhemoglobin (0.5-1.5) % POC ABG HHb (Measured) (0.0-5.0) % ABG Methemoglobin (0.0-3.0) % Bhanu Test A-a O2 Difference mm/Hg Respiratory Index Hgb O2 Saturation (95.0-98.0) % Vent Mode Mechanical Rate FiO2 % Tidal Volume PEEP Sodium 135 (132-148) mmol/L Potassium 5.7 H (3.6-5.2) mmol/L Chloride 100 (98-107) mmol/L Carbon Dioxide 19 L (22-30) mmol/L Anion Gap 22 H (10-20) BUN 20 (9-20) mg/dL Creatinine 1.7 H (0.8-1.5) MG/DL Est GFR ( Amer) 49 Est GFR (Non-Af Amer) 40 POC Glucose (mg/dL) (65-110) mg/dL Random Glucose 302 H (75-110) mg/dL Hemoglobin A1c 9.4 H (4.2-6.5) % Calcium 8.3 L (8.6-10.4) mg/dl Phosphorus 3.8 (2.5-4.5) mg/dL Magnesium 1.6 (1.6-2.3) mg/dL Total Bilirubin 0.4 (0.2-1.3) mg/dL AST 991 H D (17-59) U/L ALT 383 H D (21-72) U/L Alkaline Phosphatase 60 (38-126) U/L Troponin I 645.0000 H* (0.00-0.120) ng/mL Total Protein 6.0 L (6.3-8.3) g/dL Albumin 3.2 L (3.5-5.0) g/dL Globulin 2.9 (2.2-3.9) gm/dL Albumin/Globulin Ratio 1.1 (1.0-2.1) Urine Color (YELLOW) Urine Clarity (Clear) Urine pH (5.0-8.0) Ur Specific [place] (1.003-1.030) Urine Protein (NEGATIVE) mg/dL Urine Glucose (UA) (Normal) mg/dL Urine Ketones (NEGATIVE) mg/dL Urine Blood (NEGATIVE) Urine Nitrate (NEGATIVE) Urine Bilirubin (NEGATIVE) Urine Urobilinogen (0.2-1.0) mg/dL Ur Leukocyte Esterase (Negative) Kumar/uL Urine RBC (Auto) (0-3) /hpf Ur Squamous Epith Cells (0-5) /hpf Amorphous Sediment (<OCC) /ul Urine Bacteria (<OCC) 09/13/17 09/13/17 09/13/17 Range/Units 05:32 04:45 03:04 WBC (4.8-10.8) K/uL RBC (4.40-5.90) Mil/uL Hgb (12.0-18.0) g/dL Hct (35.0-51.0) % MCV (80.0-94.0) fL MCH (27.0-31.0) pg MCHC (33.0-37.0) g/dL RDW (11.5-14.5) % Plt Count (130-400) K/uL MPV (7.2-11.7) fL Neut % (Auto) (50.0-75.0) % Lymph % (Auto) (20.0-40.0) % [place] % (Auto) (0.0-10.0) % Eos % (Auto) (0.0-4.0) % Baso % (Auto) (0.0-2.0) % Neut # (1.8-7.0) K/uL Lymph # (1.0-4.3) K/uL [place] # (0.0-0.8) K/uL Eos # (0.0-0.7) K/uL Baso # (0.0-0.2) K/uL Neutrophils % (Manual) (50-75) % Band Neutrophils % (0-2) % Lymphocytes % (Manual) (20-40) % Monocytes % (Manual) (0-10) % Basophils % (Manual) (0-2) % Platelet Estimate (NORMAL) Hypochromasia (manual) Poikilocytosis (manual Anisocytosis (manual) Ovalocytes Puncture Site Rb pCO2 27 L (35-45) mm/Hg pO2 239 H (80-100) mm/Hg HCO3 18.1 L (21-28) mmol/L ABG pH 7.36 (7.35-7.45) ABG Total CO2 16.1 L (22-28) mmol/L ABG O2 Saturation 99.0 H (95-98) % ABG Base Excess -8.7 L (-2.0-3.0) mmol/L ABG Hemoglobin 12.1 (11.7-17.4) g/dL ABG Carboxyhemoglobin 1.0 (0.5-1.5) % POC ABG HHb (Measured) 1.0 (0.0-5.0) % ABG Methemoglobin 1.1 (0.0-3.0) % Bhanu Test Na A-a O2 Difference 226.0 mm/Hg Respiratory Index 0.9 Hgb O2 Saturation 96.9 (95.0-98.0) % Vent Mode Prvc Mechanical Rate 16 FiO2 70.0 % Tidal Volume 500 PEEP 5 Sodium (132-148) mmol/L Potassium (3.6-5.2) mmol/L Chloride (98-107) mmol/L Carbon Dioxide (22-30) mmol/L Anion Gap (10-20) BUN (9-20) mg/dL Creatinine (0.8-1.5) MG/DL Est GFR ( Amer) Est GFR (Non-Af Amer) POC Glucose (mg/dL) 334 H 340 H (65-110) mg/dL Random Glucose (75-110) mg/dL Hemoglobin A1c (4.2-6.5) % Calcium (8.6-10.4) mg/dl Phosphorus (2.5-4.5) mg/dL Magnesium (1.6-2.3) mg/dL Total Bilirubin (0.2-1.3) mg/dL AST (17-59) U/L ALT (21-72) U/L Alkaline Phosphatase (38-126) U/L Troponin I (0.00-0.120) ng/mL Total Protein (6.3-8.3) g/dL Albumin (3.5-5.0) g/dL Globulin (2.2-3.9) gm/dL Albumin/Globulin Ratio (1.0-2.1) Urine Color (YELLOW) Urine Clarity (Clear) Urine pH (5.0-8.0) Ur Specific [place] (1.003-1.030) Urine Protein (NEGATIVE) mg/dL Urine Glucose (UA) (Normal) mg/dL Urine Ketones (NEGATIVE) mg/dL Urine Blood (NEGATIVE) Urine Nitrate (NEGATIVE) Urine Bilirubin (NEGATIVE) Urine Urobilinogen (0.2-1.0) mg/dL Ur Leukocyte Esterase (Negative) Kumar/uL Urine RBC (Auto) (0-3) /hpf Ur Squamous Epith Cells (0-5) /hpf Amorphous Sediment (<OCC) /ul Urine Bacteria (<OCC) 09/13/17 09/13/17 09/12/17 Range/Units 01:46 01:45 23:38 WBC (4.8-10.8) K/uL RBC (4.40-5.90) Mil/uL Hgb (12.0-18.0) g/dL Hct (35.0-51.0) % MCV (80.0-94.0) fL MCH (27.0-31.0) pg MCHC (33.0-37.0) g/dL RDW (11.5-14.5) % Plt Count (130-400) K/uL MPV (7.2-11.7) fL Neut % (Auto) (50.0-75.0) % Lymph % (Auto) (20.0-40.0) % [place] % (Auto) (0.0-10.0) % Eos % (Auto) (0.0-4.0) % Baso % (Auto) (0.0-2.0) % Neut # (1.8-7.0) K/uL Lymph # (1.0-4.3) K/uL [place] # (0.0-0.8) K/uL Eos # (0.0-0.7) K/uL Baso # (0.0-0.2) K/uL Neutrophils % (Manual) (50-75) % Band Neutrophils % (0-2) % Lymphocytes % (Manual) (20-40) % Monocytes % (Manual) (0-10) % Basophils % (Manual) (0-2) % Platelet Estimate (NORMAL) Hypochromasia (manual) Poikilocytosis (manual Anisocytosis (manual) Ovalocytes Puncture Site pCO2 (35-45) mm/Hg pO2 (80-100) mm/Hg HCO3 (21-28) mmol/L ABG pH (7.35-7.45) ABG Total CO2 (22-28) mmol/L ABG O2 Saturation (95-98) % ABG Base Excess (-2.0-3.0) mmol/L ABG Hemoglobin (11.7-17.4) g/dL ABG Carboxyhemoglobin (0.5-1.5) % POC ABG HHb (Measured) (0.0-5.0) % ABG Methemoglobin (0.0-3.0) % Bhanu Test A-a O2 Difference mm/Hg Respiratory Index Hgb O2 Saturation (95.0-98.0) % Vent Mode Mechanical Rate FiO2 % Tidal Volume PEEP Sodium (132-148) mmol/L Potassium 5.5 H (3.6-5.2) mmol/L Chloride (98-107) mmol/L Carbon Dioxide (22-30) mmol/L Anion Gap (10-20) BUN (9-20) mg/dL Creatinine (0.8-1.5) MG/DL Est GFR ( Amer) Est GFR (Non-Af Amer) POC Glucose (mg/dL) > 500 H* > 500 H* (65-110) mg/dL Random Glucose (75-110) mg/dL Hemoglobin A1c (4.2-6.5) % Calcium (8.6-10.4) mg/dl Phosphorus (2.5-4.5) mg/dL Magnesium (1.6-2.3) mg/dL Total Bilirubin (0.2-1.3) mg/dL AST (17-59) U/L ALT (21-72) U/L Alkaline Phosphatase (38-126) U/L Troponin I (0.00-0.120) ng/mL Total Protein (6.3-8.3) g/dL Albumin (3.5-5.0) g/dL Globulin (2.2-3.9) gm/dL Albumin/Globulin Ratio (1.0-2.1) Urine Color (YELLOW) Urine Clarity (Clear) Urine pH (5.0-8.0) Ur Specific [place] (1.003-1.030) Urine Protein (NEGATIVE) mg/dL Urine Glucose (UA) (Normal) mg/dL Urine Ketones (NEGATIVE) mg/dL Urine Blood (NEGATIVE) Urine Nitrate (NEGATIVE) Urine Bilirubin (NEGATIVE) Urine Urobilinogen (0.2-1.0) mg/dL Ur Leukocyte Esterase (Negative) Kumar/uL Urine RBC (Auto) (0-3) /hpf Ur Squamous Epith Cells (0-5) /hpf Amorphous Sediment (<OCC) /ul Urine Bacteria (<OCC) 05/28/17 05/28/17 Range/Units 23:22 23:22 WBC 12.2 H (4.8-10.8) K/uL RBC 3.76 L (4.40-5.90) Mil/uL Hgb 11.1 L (12.0-18.0) g/dL Hct 34.2 L (35.0-51.0) % MCV 91.0 (80.0-94.0) fL MCH 29.6 (27.0-31.0) pg MCHC 32.5 L (33.0-37.0) g/dL RDW 15.6 H (11.5-14.5) % Plt Count 110 L D (130-400) K/uL MPV 8.5 (7.2-11.7) fL Neut % (Auto) 83.4 H (50.0-75.0) % Lymph % (Auto) 8.1 L (20.0-40.0) % [place] % (Auto) 7.8 (0.0-10.0) % Eos % (Auto) 0.2 (0.0-4.0) % Baso % (Auto) 0.5 (0.0-2.0) % Neut # 10.2 H (1.8-7.0) K/uL Lymph # 1.0 (1.0-4.3) K/uL [place] # 1.0 H (0.0-0.8) K/uL Eos # 0.0 (0.0-0.7) K/uL Baso # 0.1 (0.0-0.2) K/uL Neutrophils % (Manual) 81 H (50-75) % Band Neutrophils % 1 (0-2) % Lymphocytes % (Manual) 12 L (20-40) % Monocytes % (Manual) 5 (0-10) % Basophils % (Manual) 1 (0-2) % Platelet Estimate Slightly decreased L (NORMAL) Hypochromasia (manual) Poikilocytosis (manual Anisocytosis (manual) Ovalocytes Puncture Site pCO2 (35-45) mm/Hg pO2 (80-100) mm/Hg HCO3 (21-28) mmol/L ABG pH (7.35-7.45) ABG Total CO2 (22-28) mmol/L ABG O2 Saturation (95-98) % ABG Base Excess (-2.0-3.0) mmol/L ABG Hemoglobin (11.7-17.4) g/dL ABG Carboxyhemoglobin (0.5-1.5) % POC ABG HHb (Measured) (0.0-5.0) % ABG Methemoglobin (0.0-3.0) % Bhanu Test A-a O2 Difference mm/Hg Respiratory Index Hgb O2 Saturation (95.0-98.0) % Vent Mode Mechanical Rate FiO2 % Tidal Volume PEEP Sodium 131 L (132-148) mmol/L Potassium 6.1 H (3.6-5.2) mmol/L Chloride 100 (98-107) mmol/L Carbon Dioxide 19 L (22-30) mmol/L Anion Gap 18 (10-20) BUN 17 (9-20) mg/dL Creatinine 1.1 (0.8-1.5) MG/DL Est GFR ( Amer) > 60 Est GFR (Non-Af Amer) > 60 POC Glucose (mg/dL) (65-110) mg/dL Random Glucose 510 H* (75-110) mg/dL Hemoglobin A1c (4.2-6.5) % Calcium 7.8 L (8.6-10.4) mg/dl Phosphorus (2.5-4.5) mg/dL Magnesium (1.6-2.3) mg/dL Total Bilirubin (0.2-1.3) mg/dL AST (17-59) U/L ALT (21-72) U/L Alkaline Phosphatase (38-126) U/L Troponin I (0.00-0.120) ng/mL Total Protein (6.3-8.3) g/dL Albumin (3.5-5.0) g/dL Globulin (2.2-3.9) gm/dL Albumin/Globulin Ratio (1.0-2.1) Urine Color (YELLOW) Urine Clarity (Clear) Urine pH (5.0-8.0) Ur Specific [place] (1.003-1.030) Urine Protein (NEGATIVE) mg/dL Urine Glucose (UA) (Normal) mg/dL Urine Ketones (NEGATIVE) mg/dL Urine Blood (NEGATIVE) Urine Nitrate (NEGATIVE) Urine Bilirubin (NEGATIVE) Urine Urobilinogen (0.2-1.0) mg/dL Ur Leukocyte Esterase (Negative) Kumar/uL Urine RBC (Auto) (0-3) /hpf Ur Squamous Epith Cells (0-5) /hpf Amorphous Sediment (<OCC) /ul Urine Bacteria (<OCC) Laboratory Results - last 24 hr 05/28/17 05/28/17 05/28/17 23:22 23:22 23:38 WBC 12.2 H RBC 3.76 L Hgb 11.1 L Hct 34.2 L MCV 91.0 MCH 29.6 MCHC 32.5 L RDW 15.6 H Plt Count 110 L D MPV 8.5 Neut % (Auto) 83.4 H Lymph % (Auto) 8.1 L [place] % (Auto) 7.8 Eos % (Auto) 0.2 Baso % (Auto) 0.5 Neut # 10.2 H Lymph # 1.0 [place] # 1.0 H Eos # 0.0 Baso # 0.1 Neutrophils % (Manual) 81 H Band Neutrophils % 1 Lymphocytes % (Manual) 12 L Monocytes % (Manual) 5 Basophils % (Manual) 1 Platelet Estimate Slightly decreased L Hypochromasia (manual) Poikilocytosis (manual Anisocytosis (manual) Ovalocytes Puncture Site pCO2 pO2 HCO3 ABG pH ABG Total CO2 ABG O2 Saturation ABG Base Excess ABG Hemoglobin ABG Carboxyhemoglobin POC ABG HHb (Measured) ABG Methemoglobin Bhanu Test A-a O2 Difference Respiratory Index Hgb O2 Saturation Vent Mode Mechanical Rate FiO2 Tidal Volume PEEP Sodium 131 L Potassium 6.1 H Chloride 100 Carbon Dioxide 19 L Anion Gap 18 BUN 17 Creatinine 1.1 Est GFR ( Amer) > 60 Est GFR (Non-Af Amer) > 60 POC Glucose (mg/dL) > 500 H* Random Glucose 510 H* Hemoglobin A1c Calcium 7.8 L Phosphorus Magnesium Total Bilirubin AST ALT Alkaline Phosphatase Troponin I Total Protein Albumin Globulin Albumin/Globulin Ratio Urine Color Urine Clarity Urine pH Ur Specific [place] Urine Protein Urine Glucose (UA) Urine Ketones Urine Blood Urine Nitrate Urine Bilirubin Urine Urobilinogen Ur Leukocyte Esterase Urine RBC (Auto) Ur Squamous Epith Cells Amorphous Sediment Urine Bacteria 05/29/17 05/29/17 05/29/17 01:45 01:46 03:04 WBC RBC Hgb Hct MCV MCH MCHC RDW Plt Count MPV Neut % (Auto) Lymph % (Auto) [place] % (Auto) Eos % (Auto) Baso % (Auto) Neut # Lymph # [place] # Eos # Baso # Neutrophils % (Manual) Band Neutrophils % Lymphocytes % (Manual) Monocytes % (Manual) Basophils % (Manual) Platelet Estimate Hypochromasia (manual) Poikilocytosis (manual Anisocytosis (manual) Ovalocytes Puncture Site pCO2 pO2 HCO3 ABG pH ABG Total CO2 ABG O2 Saturation ABG Base Excess ABG Hemoglobin ABG Carboxyhemoglobin POC ABG HHb (Measured) ABG Methemoglobin Bhanu Test A-a O2 Difference Respiratory Index Hgb O2 Saturation Vent Mode Mechanical Rate FiO2 Tidal Volume PEEP Sodium Potassium 5.5 H Chloride Carbon Dioxide Anion Gap BUN Creatinine Est GFR ( Amer) Est GFR (Non-Af Amer) POC Glucose (mg/dL) > 500 H* 340 H Random Glucose Hemoglobin A1c Calcium Phosphorus Magnesium Total Bilirubin AST ALT Alkaline Phosphatase Troponin I Total Protein Albumin Globulin Albumin/Globulin Ratio Urine Color Urine Clarity Urine pH Ur Specific [place] Urine Protein Urine Glucose (UA) Urine Ketones Urine Blood Urine Nitrate Urine Bilirubin Urine Urobilinogen Ur Leukocyte Esterase Urine RBC (Auto) Ur Squamous Epith Cells Amorphous Sediment Urine Bacteria 05/29/17 05/29/17 05/29/17 04:45 05:32 06:22 WBC 8.4 RBC 3.78 L Hgb 11.3 L Hct 34.1 L MCV 90.3 MCH 30.0 MCHC 33.2 RDW 15.8 H Plt Count 118 L MPV 9.3 Neut % (Auto) 83.4 H Lymph % (Auto) 7.0 L [place] % (Auto) 9.1 Eos % (Auto) 0.3 Baso % (Auto) 0.2 Neut # 7.0 Lymph # 0.6 L [place] # 0.8 Eos # 0.0 Baso # 0.0 Neutrophils % (Manual) 73 Band Neutrophils % 9 H Lymphocytes % (Manual) 10 L Monocytes % (Manual) 8 Basophils % (Manual) Platelet Estimate Slightly decreased L Hypochromasia (manual) Slight Poikilocytosis (manual Slight Anisocytosis (manual) Slight Ovalocytes Slight Puncture Site Rb pCO2 27 L pO2 239 H HCO3 18.1 L ABG pH 7.36 ABG Total CO2 16.1 L ABG O2 Saturation 99.0 H ABG Base Excess -8.7 L ABG Hemoglobin 12.1 ABG Carboxyhemoglobin 1.0 POC ABG HHb (Measured) 1.0 ABG Methemoglobin 1.1 Bhanu Test Na A-a O2 Difference 226.0 Respiratory Index 0.9 Hgb O2 Saturation 96.9 Vent Mode Prvc Mechanical Rate 16 FiO2 70.0 Tidal Volume 500 PEEP 5 Sodium Potassium Chloride Carbon Dioxide Anion Gap BUN Creatinine Est GFR ( Amer) Est GFR (Non-Af Amer) POC Glucose (mg/dL) 334 H Random Glucose Hemoglobin A1c Calcium Phosphorus Magnesium Total Bilirubin AST ALT Alkaline Phosphatase Troponin I Total Protein Albumin Globulin Albumin/Globulin Ratio Urine Color Urine Clarity Urine pH Ur Specific [place] Urine Protein Urine Glucose (UA) Urine Ketones Urine Blood Urine Nitrate Urine Bilirubin Urine Urobilinogen Ur Leukocyte Esterase Urine RBC (Auto) Ur Squamous Epith Cells Amorphous Sediment Urine Bacteria 05/29/17 05/29/17 05/29/17 06:22 06:22 10:34 WBC RBC Hgb Hct MCV MCH MCHC RDW Plt Count MPV Neut % (Auto) Lymph % (Auto) [place] % (Auto) Eos % (Auto) Baso % (Auto) Neut # Lymph # [place] # Eos # Baso # Neutrophils % (Manual) Band Neutrophils % Lymphocytes % (Manual) Monocytes % (Manual) Basophils % (Manual) Platelet Estimate Hypochromasia (manual) Poikilocytosis (manual Anisocytosis (manual) Ovalocytes Puncture Site pCO2 pO2 HCO3 ABG pH ABG Total CO2 ABG O2 Saturation ABG Base Excess ABG Hemoglobin ABG Carboxyhemoglobin POC ABG HHb (Measured) ABG Methemoglobin Bhanu Test A-a O2 Difference Respiratory Index Hgb O2 Saturation Vent Mode Mechanical Rate FiO2 Tidal Volume PEEP Sodium 135 Potassium 5.7 H Chloride 100 Carbon Dioxide 19 L Anion Gap 22 H BUN 20 Creatinine 1.7 H Est GFR ( Amer) 49 Est GFR (Non-Af Amer) 40 POC Glucose (mg/dL) Random Glucose 302 H Hemoglobin A1c 9.4 H Calcium 8.3 L Phosphorus 3.8 Magnesium 1.6 Total Bilirubin 0.4 AST 991 H D ALT 383 H D Alkaline Phosphatase 60 Troponin I 645.0000 H* Total Protein 6.0 L Albumin 3.2 L Globulin 2.9 Albumin/Globulin Ratio 1.1 Urine Color Tamy Urine Clarity Turbid Urine pH 5.0 Ur Specific [place] 1.020 Urine Protein 3+ H Urine Glucose (UA) 3+ H Urine Ketones Negative Urine Blood 1+ H Urine Nitrate Negative Urine Bilirubin Negative Urine Urobilinogen 2.0 Ur Leukocyte Esterase Neg Urine RBC (Auto) 82 H Ur Squamous Epith Cells 1 Amorphous Sediment Rare H Urine Bacteria Few H 05/29/17 05/29/17 12:07 12:15 WBC 8.6 RBC 3.72 L Hgb 11.1 L Hct 32.9 L MCV 88.6 MCH 29.8 MCHC 33.7 RDW 15.4 H Plt Count 101 L MPV 9.0 Neut % (Auto) 77.5 H Lymph % (Auto) 11.6 L [place] % (Auto) 9.4 Eos % (Auto) 1.0 Baso % (Auto) 0.5 Neut # 6.6 Lymph # 1.0 [place] # 0.8 Eos # 0.1 Baso # 0.0 Neutrophils % (Manual) Band Neutrophils % Lymphocytes % (Manual) Monocytes % (Manual) Basophils % (Manual) Platelet Estimate Hypochromasia (manual) Poikilocytosis (manual Anisocytosis (manual) Ovalocytes Puncture Site pCO2 pO2 HCO3 ABG pH ABG Total CO2 ABG O2 Saturation ABG Base Excess ABG Hemoglobin ABG Carboxyhemoglobin POC ABG HHb (Measured) ABG Methemoglobin Bhanu Test A-a O2 Difference Respiratory Index Hgb O2 Saturation Vent Mode Mechanical Rate FiO2 Tidal Volume PEEP Sodium Potassium Chloride Carbon Dioxide Anion Gap BUN Creatinine Est GFR ( Amer) Est GFR (Non-Af Amer) POC Glucose (mg/dL) 153 H Random Glucose Hemoglobin A1c Calcium Phosphorus Magnesium Total Bilirubin AST ALT Alkaline Phosphatase Troponin I Total Protein Albumin Globulin Albumin/Globulin Ratio Urine Color Urine Clarity Urine pH Ur Specific [place] Urine Protein Urine Glucose (UA) Urine Ketones Urine Blood Urine Nitrate Urine Bilirubin Urine Urobilinogen Ur Leukocyte Esterase Urine RBC (Auto) Ur Squamous Epith Cells Amorphous Sediment Urine Bacteria EKG/Cardiology Studies: Cardiology / EKG Studies 05/29/17 07:00 ELECTROCARDIOGRAM Routine Comment: Mode Of Transportation: PORTABLE Reason For Exam: respiratory failure Attending/Attestation - Attestation I have personally seen and examined this patient.: Yes I have fully participated in the care of the patient.: Yes I have reviewed all pertinent clinical information: Yes Notes (Text): 05/29/17 16:07 Patient seen and examined in the intensive care unit. Case discussed with all staff in the morning. Status post cardiac cath and stents placement in circumflex Status post AIBP for hypotension Started on levofed and dopamine Continue anticoagulation Reduce FiO2 as tolerated Continue ventilatory support for now Lasix as tolerated
[2017-05-29 08:29] LABS: NEUTROPHIL 73 % (50-75); TOTAL CELLS COUNTED 100
--- NOTE | 2017-05-29 08:36 | RAD ---
PROCEDURE: CHEST RADIOGRAPH, 1 VIEW HISTORY: AL COMPARISON: 05/28/2017 FINDINGS: LUNGS: Lines and tubes in stable position. Prominent consolidative changes and opacification throughout the left lung. Focal consolidative change in the right hilar region. PLEURA: As above. CARDIOVASCULAR: Cardiomegaly. Calcification at the aortic knob. OSSEOUS STRUCTURES: Degenerative changes in the spine and shoulders. VISUALIZED UPPER ABDOMEN: Normal. OTHER FINDINGS: None. IMPRESSION: Lines and tubes in stable position. Prominent consolidative changes and opacification throughout the left lung. Focal consolidative change in the right hilar region.
[2017-05-29] MEDS ORDERED: Sodium Chloride 0.9% 1,000 ML IV SCH (10:00)
[2017-05-29 10:55] LABS: RBC URINE 82 /hpf (0-3); URINE BACTERIA FEW (<OCC); URINE BILIRUBIN NEGATIVE (NEGATIVE); URINE BLOOD 1+ (NEGATIVE); URINE COLOR Amber (YELLOW); URINE GLUCOSE (UA) 3+ mg/dL (Normal); URINE KETONE NEGATIVE (NEGATIVE); URINE LEUKOCYTE ESTERASE NEG Leu/uL (Negative); URINE PROTEIN 3+ mg/dL (NEGATIVE)
[2017-05-29] MEDS ORDERED: Magnesium Sulfate 1 gm in D5W 1 GM/100 ML BAG IVPB ONE (11:00)
[2017-05-29] MEDS: DOPamine 400mg/250ml D5W 400 MG/250 ML BAG IV PRN (11:11)
[2017-05-29] MEDS ORDERED: Piperacillin/Tazobact 3.375 GM in Sodium Chloride 100 ML IVPB ONE (11:11)
[2017-05-29] MEDS ORDERED: DOPamine 400mg/250ml D5W 400 MG/250 ML BAG IV PRN ×2 (11:12→12:29)
[2017-05-29] MEDS ORDERED: Piperacillin/Tazobact 3.375 gm 100 ML IVPB ONE (12:00)
[2017-05-29 12:18] LABS: BASO % 0.5 % (0.0-2.0); EOS # 0.1 K/uL (0.0-0.7); HEMATOCRIT 32.9 % (35.0-51.0); LYMPH % 11.6 % (20.0-40.0); MEAN CELL VOLUME 88.6 fL (80.0-94.0); MEAN CORPUSCULAR HEMOGLOBIN 29.8 pg (27.0-31.0); MEAN CORPUSCULAR HGB CONC 33.7 g/dL (33.0-37.0); MONO # 0.8 K/uL (0.0-0.8); MONO % 9.4 % (0.0-10.0); NRBC % 0.2 % (0.0-2.0); RED CELL DISTRIBUTION WIDTH 15.4 % (11.5-14.5); WHITE BLOOD COUNT 8.6 K/uL (4.8-10.8)
--- NOTE | 2017-05-29 12:45 | CARD ---
APPROVED REPORT EKG Measurement Heart [id number] <Conclusion> Atrial fibrillation Nonspecific intraventricular block Inferior infarct, age undetermined Marked ST abnormality, possible anterior subendocardial injury Abnormal ECG
--- NOTE | 2017-05-29 12:46 | CARD ---
APPROVED REPORT EKG Measurement Heart [id number] <Conclusion> Wide QRS rhythm Nonspecific intraventricular block Abnormal ECG
--- NOTE | 2017-05-29 13:40 | CARD ---
APPROVED REPORT EXAM: Two-dimensional and M-mode echocardiogram with Doppler and color Doppler. Other Information Quality : GoodRhythm : Bradycardia RISK FACTORS Hypertension Hyperlipidemia 2D DIMENSIONS IVSd1.1 (0.7-1.1cm)LVDd4.6 (3.9-5.9cm) PWd1.8 (0.7-1.1cm)LVDs4.0 (2.5-4.0cm) FS (%) 13.0 %LVEF (%)28.0 (>50%) M-Mode DIMENSIONS RVDd2.74 (2.1-3.2cm)Left Atrium (MM)4.55 (2.5-4.0cm) IVSd1.39 (0.7-1.1cm)Aortic Root1.39 (2.2-3.7cm) LVDd4.48 (4.0-5.6cm)Aortic Cusp Exc.1.80 (1.5-2.0cm) PWd1.98 (0.7-1.1cm)FS (%) 20 % LVDs3.57 (2.0-3.8cm)LVEF (%)41 (>50%) Mitral Valve MV E Fujobnhm35.6cm/sE/A ratio0.0 TDI E/Lateral E'0.0E/Medial E'0.0 Tricuspid Valve TR Peak [id number] Peak [id number] LEFT VENTRICLE The left ventricle is normal size. There is moderate concentric left ventricular hypertrophy. The echo findings are consistent with hypertrophic cardiomyopathy. The systolic function is moderately to severely impaired. There is normal LV segmental wall motion. Tissue Doppler imaging reveals severe left ventricular diastolic dysfunction. Transmitral Doppler flow pattern is Grade I-abnormal relaxation pattern. No left ventricle thrombus noted on this study. There is no ventricular septal defect visualized. There is no left ventricular aneurysm. There is no mass noted in the left ventricle. RIGHT VENTRICLE The right ventricle is normal size. There is normal right ventricular wall thickness. The right ventricular systolic function is normal. ATRIA The left atrium is mildly dilated. The right atrium size is normal. The interatrial septum is intact with no evidence for an atrial septal defect. AORTIC VALVE The aortic valve is normal in structure. No aortic regurgitation is present. There is no aortic valvular stenosis. There is no aortic valvular vegetation. MITRAL VALVE The mitral valve is normal in structure. There is no mitral valve stenosis. Mitral regurgitation is moderate. TRICUSPID VALVE The tricuspid valve is normal in structure. There is trace tricuspid regurgitation. There is mild pulmonary hypertension. PULMONIC VALVE The pulmonary valve is normal in structure. There is no pulmonic valvular regurgitation. GREAT VESSELS The aortic root is normal in size. The ascending aorta is normal in size. The pulmonary artery is normal. The IVC is normal in size and collapses >50% with inspiration. PERICARDIAL EFFUSION There is no pericardial effusion. <Conclusion> There is moderate concentric left ventricular hypertrophy. The echo findings are consistent with hypertrophic cardiomyopathy. The systolic function is moderately to severely impaired. Tissue Doppler imaging reveals severe left ventricular diastolic dysfunction. Transmitral Doppler flow pattern is Grade I-abnormal relaxation pattern. The left atrium is mildly dilated. Mitral regurgitation is moderate. There is trace tricuspid regurgitation. There is mild pulmonary hypertension. LVEF IS 28%.
[2017-05-29] MEDS ORDERED: Dextrose 5%/0.9% NS 1,000 ML IV ONE (17:44)
[2017-05-29] MEDS ORDERED: Dextrose 50% SYRINGE Inj (50 ml) ONE (17:50)
[2017-05-29 20:21] LABS: CREATININE, RANDOM URINE 155.8 mg/dL
--- NOTE | 2017-05-29 22:58 | CP.PCM.HP ---
History of Present Illness - History of Present Illness History of Present Illness: CC: colapse, fall ? 71 y/o male who is on ventilator, with PMHx of HTN and Hyperlipidemia, presents to the ED via EMS for evaluation of chest pain which began prior to arrival acording family he collapsed at home. EMS was called on site and notification was given regarding a code heart prior to patient's arrival. Upon ED arrival, patient was found to be diaphoretic, hypotensive, and lethargic, bradycardic. Patient was intubated upon arrival. atropine, transcutaneous pacing initiated. limited hx provided. Additional history limited secondary to patient's clinical condition. Review of Systems - Review of Systems Systems not reviewed;Unavailable: Unstable Vital Signs, Respiratory Distress - Constitutional Constitutional: absent: As Per HPI, Anorexia, Chills, Daytime Sleepiness, Excessive Sweating, Fatigue, Fever, Frequent Falls, Headache, Increased Appetite , Lethargy, Malaise, Night Sweats, Snoring, Sleep Apnea, Weight Gain, Weight Loss, Weakness, Other - EENT Eyes: absent: As Per HPI, Blind Spots, Blurred Vision, Change in Vision, Decreased Night Vision, Diplopia, Discharge, Dry Eye, Exophthalmos, Floaters, Irritation, Itchy Eyes, Loss of Peripheral Vision, Pain, Photophobia, Requires Corrective Lenses, Sees Flashes, Spots in Vision, Tunnel Vision, Other Visual Disturbances, Loss of Vision, Other - Cardiovascular Cardiovascular: Chest Pain, Syncope - Genitourinary Genitourinary: Urinary Incontinence Past Patient History - Past Medical History & Family History Past Medical History?: Yes - Past Social History Smoking Status: Unknown If Ever Smoked - CARDIAC Hx Cardiac Disorders: Yes Hx Hypercholesterolemia: Yes Hx Hypertension: Yes - RENAL Hx Chronic Kidney Disease: No (unknown) - ENDOCRINE/METABOLIC Hx Diabetes Mellitus Type 2: Yes - HEMATOLOGICAL/ONCOLOGICAL Hx Blood Disorders: No (unknown) - MUSCULOSKELETAL/RHEUMATOLOGICAL Hx Falls: No - PSYCHIATRIC Hx Substance Use: No - SURGICAL HISTORY 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) - ANESTHESIA Hx Anesthesia: Yes Meds Allergies/Adverse Reactions: Allergies Allergy/AdvReac Type Severity Reaction Status Date / Time No Known Allergies Allergy Unverified 05/28/17 18:38 Physical Exam - Constitutional Appears: Chronically Ill Additional comments: moving eyes spontaneously elderly male on MV inyuabted - Eye Exam Eye Exam: EOMI, Normal appearance, PERRL Pupil Exam: NORMAL ACCOMODATION, PERRL - ENT Exam ENT Exam: Mucous Membranes Moist, Normal Exam - Neck Exam Neck exam: Positive for: Normal Inspection - Respiratory Exam Respiratory Exam: Clear to Auscultation Bilateral, NORMAL BREATHING PATTERN - Cardiovascular Exam Cardiovascular Exam: Tachycardia, +S1, +S2 - Rectal Exam Rectal Exam: Deferred - Extremities Exam Extremities exam: Positive for: normal inspection - Neurological Exam Neurological exam: CN II-XII Intact Additional comments: unable to perform complete neuro exam pt is on mechanical ventilatro Results - Vital Signs Recent Vital Signs: Last Vital Signs Temp 98.4 F 05/29/17 20:00 Pulse 129 H 05/29/17 21:04 Resp 21 05/29/17 21:04 BP 125/75 05/29/17 21:05 Pulse Ox 98 05/29/17 21:04 - Labs Result Diagrams: 05/29/17 12:07 05/29/17 06:22 Labs: Laboratory Results - last 24 hr 05/28/17 05/28/17 05/28/17 23:22 23:22 23:38 WBC 12.2 H RBC 3.76 L Hgb 11.1 L Hct 34.2 L MCV 91.0 MCH 29.6 MCHC 32.5 L RDW 15.6 H Plt Count 110 L D MPV 8.5 Neut % (Auto) 83.4 H Lymph % (Auto) 8.1 L [place] % (Auto) 7.8 Eos % (Auto) 0.2 Baso % (Auto) 0.5 Neut # 10.2 H Lymph # 1.0 [place] # 1.0 H Eos # 0.0 Baso # 0.1 Neutrophils % (Manual) 81 H Band Neutrophils % 1 Lymphocytes % (Manual) 12 L Monocytes % (Manual) 5 Basophils % (Manual) 1 Platelet Estimate Slightly decreased L Hypochromasia (manual) Poikilocytosis (manual Anisocytosis (manual) Ovalocytes Puncture Site pCO2 pO2 HCO3 ABG pH ABG Total CO2 ABG O2 Saturation ABG Base Excess ABG Hemoglobin ABG Carboxyhemoglobin POC ABG HHb (Measured) ABG Methemoglobin Bhanu Test A-a O2 Difference Respiratory Index Hgb O2 Saturation Vent Mode Mechanical Rate FiO2 Tidal Volume PEEP Sodium 131 L Potassium 6.1 H Chloride 100 Carbon Dioxide 19 L Anion Gap 18 BUN 17 Creatinine 1.1 Est GFR ( Amer) > 60 Est GFR (Non-Af Amer) > 60 POC Glucose (mg/dL) > 500 H* Random Glucose 510 H* Hemoglobin A1c Calcium 7.8 L Phosphorus Magnesium Total Bilirubin AST ALT Alkaline Phosphatase Troponin I Total Protein Albumin Globulin Albumin/Globulin Ratio Urine Color Urine Clarity Urine pH Ur Specific Lopez Urine Protein Urine Glucose (UA) Urine Ketones Urine Blood Urine Nitrate Urine Bilirubin Urine Urobilinogen Ur Leukocyte Esterase Urine RBC (Auto) Ur Squamous Epith Cells Amorphous Sediment Urine Bacteria Ur Random Creatinine Ur Random Sodium Ur Random Potassium 05/29/17 05/29/17 05/29/17 01:45 01:46 03:04 WBC RBC Hgb Hct MCV MCH MCHC RDW Plt Count MPV Neut % (Auto) Lymph % (Auto) [place] % (Auto) Eos % (Auto) Baso % (Auto) Neut # Lymph # [place] # Eos # Baso # Neutrophils % (Manual) Band Neutrophils % Lymphocytes % (Manual) Monocytes % (Manual) Basophils % (Manual) Platelet Estimate Hypochromasia (manual) Poikilocytosis (manual Anisocytosis (manual) Ovalocytes Puncture Site pCO2 pO2 HCO3 ABG pH ABG Total CO2 ABG O2 Saturation ABG Base Excess ABG Hemoglobin ABG Carboxyhemoglobin POC ABG HHb (Measured) ABG Methemoglobin Bhanu Test A-a O2 Difference Respiratory Index Hgb O2 Saturation Vent Mode Mechanical Rate FiO2 Tidal Volume PEEP Sodium Potassium 5.5 H Chloride Carbon Dioxide Anion Gap BUN Creatinine Est GFR ( Amer) Est GFR (Non-Af Amer) POC Glucose (mg/dL) > 500 H* 340 H Random Glucose Hemoglobin A1c Calcium Phosphorus Magnesium Total Bilirubin AST ALT Alkaline Phosphatase Troponin I Total Protein Albumin Globulin Albumin/Globulin Ratio Urine Color Urine Clarity Urine pH Ur Specific Lopez Urine Protein Urine Glucose (UA) Urine Ketones Urine Blood Urine Nitrate Urine Bilirubin Urine Urobilinogen Ur Leukocyte Esterase Urine RBC (Auto) Ur Squamous Epith Cells Amorphous Sediment Urine Bacteria Ur Random Creatinine Ur Random Sodium Ur Random Potassium 05/29/17 05/29/17 05/29/17 04:45 05:32 06:22 WBC 8.4 RBC 3.78 L Hgb 11.3 L Hct 34.1 L MCV 90.3 MCH 30.0 MCHC 33.2 RDW 15.8 H Plt Count 118 L MPV 9.3 Neut % (Auto) 83.4 H Lymph % (Auto) 7.0 L [place] % (Auto) 9.1 Eos % (Auto) 0.3 Baso % (Auto) 0.2 Neut # 7.0 Lymph # 0.6 L [place] # 0.8 Eos # 0.0 Baso # 0.0 Neutrophils % (Manual) 73 Band Neutrophils % 9 H Lymphocytes % (Manual) 10 L Monocytes % (Manual) 8 Basophils % (Manual) Platelet Estimate Slightly decreased L Hypochromasia (manual) Slight Poikilocytosis (manual Slight Anisocytosis (manual) Slight Ovalocytes Slight Puncture Site Rb pCO2 27 L pO2 239 H HCO3 18.1 L ABG pH 7.36 ABG Total CO2 16.1 L ABG O2 Saturation 99.0 H ABG Base Excess -8.7 L ABG Hemoglobin 12.1 ABG Carboxyhemoglobin 1.0 POC ABG HHb (Measured) 1.0 ABG Methemoglobin 1.1 Bhanu Test Na A-a O2 Difference 226.0 Respiratory Index 0.9 Hgb O2 Saturation 96.9 Vent Mode Prvc Mechanical Rate 16 FiO2 70.0 Tidal Volume 500 PEEP 5 Sodium Potassium Chloride Carbon Dioxide Anion Gap BUN Creatinine Est GFR ( Amer) Est GFR (Non-Af Amer) POC Glucose (mg/dL) 334 H Random Glucose Hemoglobin A1c Calcium Phosphorus Magnesium Total Bilirubin AST ALT Alkaline Phosphatase Troponin I Total Protein Albumin Globulin Albumin/Globulin Ratio Urine Color Urine Clarity Urine pH Ur Specific Lopez Urine Protein Urine Glucose (UA) Urine Ketones Urine Blood Urine Nitrate Urine Bilirubin Urine Urobilinogen Ur Leukocyte Esterase Urine RBC (Auto) Ur Squamous Epith Cells Amorphous Sediment Urine Bacteria Ur Random Creatinine Ur Random Sodium Ur Random Potassium 05/29/17 05/29/17 05/29/17 06:22 06:22 10:34 WBC RBC Hgb Hct MCV MCH MCHC RDW Plt Count MPV Neut % (Auto) Lymph % (Auto) [place] % (Auto) Eos % (Auto) Baso % (Auto) Neut # Lymph # [place] # Eos # Baso # Neutrophils % (Manual) Band Neutrophils % Lymphocytes % (Manual) Monocytes % (Manual) Basophils % (Manual) Platelet Estimate Hypochromasia (manual) Poikilocytosis (manual Anisocytosis (manual) Ovalocytes Puncture Site pCO2 pO2 HCO3 ABG pH ABG Total CO2 ABG O2 Saturation ABG Base Excess ABG Hemoglobin ABG Carboxyhemoglobin POC ABG HHb (Measured) ABG Methemoglobin Bhanu Test A-a O2 Difference Respiratory Index Hgb O2 Saturation Vent Mode Mechanical Rate FiO2 Tidal Volume PEEP Sodium 135 Potassium 5.7 H Chloride 100 Carbon Dioxide 19 L Anion Gap 22 H BUN 20 Creatinine 1.7 H Est GFR ( Amer) 49 Est GFR (Non-Af Amer) 40 POC Glucose (mg/dL) Random Glucose 302 H Hemoglobin A1c 9.4 H Calcium 8.3 L Phosphorus 3.8 Magnesium 1.6 Total Bilirubin 0.4 AST 991 H D ALT 383 H D Alkaline Phosphatase 60 Troponin I 645.0000 H* Total Protein 6.0 L Albumin 3.2 L Globulin 2.9 Albumin/Globulin Ratio 1.1 Urine Color Tamy Urine Clarity Turbid Urine pH 5.0 Ur Specific Lopez 1.020 Urine Protein 3+ H Urine Glucose (UA) 3+ H Urine Ketones Negative Urine Blood 1+ H Urine Nitrate Negative Urine Bilirubin Negative Urine Urobilinogen 2.0 Ur Leukocyte Esterase Neg Urine RBC (Auto) 82 H Ur Squamous Epith Cells 1 Amorphous Sediment Rare H Urine Bacteria Few H Ur Random Creatinine Ur Random Sodium Ur Random Potassium 05/29/17 05/29/17 05/29/17 12:07 12:15 17:42 WBC 8.6 RBC 3.72 L Hgb 11.1 L Hct 32.9 L MCV 88.6 MCH 29.8 MCHC 33.7 RDW 15.4 H Plt Count 101 L MPV 9.0 Neut % (Auto) 77.5 H Lymph % (Auto) 11.6 L [place] % (Auto) 9.4 Eos % (Auto) 1.0 Baso % (Auto) 0.5 Neut # 6.6 Lymph # 1.0 [place] # 0.8 Eos # 0.1 Baso # 0.0 Neutrophils % (Manual) Band Neutrophils % Lymphocytes % (Manual) Monocytes % (Manual) Basophils % (Manual) Platelet Estimate Hypochromasia (manual) Poikilocytosis (manual Anisocytosis (manual) Ovalocytes Puncture Site pCO2 pO2 HCO3 ABG pH ABG Total CO2 ABG O2 Saturation ABG Base Excess ABG Hemoglobin ABG Carboxyhemoglobin POC ABG HHb (Measured) ABG Methemoglobin Bhanu Test A-a O2 Difference Respiratory Index Hgb O2 Saturation Vent Mode Mechanical Rate FiO2 Tidal Volume PEEP Sodium Potassium Chloride Carbon Dioxide Anion Gap BUN Creatinine Est GFR ( Amer) Est GFR (Non-Af Amer) POC Glucose (mg/dL) 153 H 62 L Random Glucose Hemoglobin A1c Calcium Phosphorus Magnesium Total Bilirubin AST ALT Alkaline Phosphatase Troponin I Total Protein Albumin Globulin Albumin/Globulin Ratio Urine Color Urine Clarity Urine pH Ur Specific Lopez Urine Protein Urine Glucose (UA) Urine Ketones Urine Blood Urine Nitrate Urine Bilirubin Urine Urobilinogen Ur Leukocyte Esterase Urine RBC (Auto) Ur Squamous Epith Cells Amorphous Sediment Urine Bacteria Ur Random Creatinine Ur Random Sodium Ur Random Potassium 05/29/17 05/29/17 05/29/17 18:15 20:05 22:22 WBC RBC Hgb Hct MCV MCH MCHC RDW Plt Count MPV Neut % (Auto) Lymph % (Auto) [place] % (Auto) Eos % (Auto) Baso % (Auto) Neut # Lymph # [place] # Eos # Baso # Neutrophils % (Manual) Band Neutrophils % Lymphocytes % (Manual) Monocytes % (Manual) Basophils % (Manual) Platelet Estimate Hypochromasia (manual) Poikilocytosis (manual Anisocytosis (manual) Ovalocytes Puncture Site pCO2 pO2 HCO3 ABG pH ABG Total CO2 ABG O2 Saturation ABG Base Excess ABG Hemoglobin ABG Carboxyhemoglobin POC ABG HHb (Measured) ABG Methemoglobin Bhanu Test A-a O2 Difference Respiratory Index Hgb O2 Saturation Vent Mode Mechanical Rate FiO2 Tidal Volume PEEP Sodium Potassium Chloride Carbon Dioxide Anion Gap BUN Creatinine Est GFR ( Amer) Est GFR (Non-Af Amer) POC Glucose (mg/dL) 96 73 Random Glucose Hemoglobin A1c Calcium Phosphorus Magnesium Total Bilirubin AST ALT Alkaline Phosphatase Troponin I Total Protein Albumin Globulin Albumin/Globulin Ratio Urine Color Urine Clarity Urine pH Ur Specific Lopez Urine Protein Urine Glucose (UA) Urine Ketones Urine Blood Urine Nitrate Urine Bilirubin Urine Urobilinogen Ur Leukocyte Esterase Urine RBC (Auto) Ur Squamous Epith Cells Amorphous Sediment Urine Bacteria Ur Random Creatinine 155.8 Ur Random Sodium 23 Ur Random Potassium 96.4 Assessment & Plan (1) Endotracheally intubated Assessment and Plan: resp failure preciapitated by acute OR follow up by cardiology Status: Acute (2) Hypotension Status: Acute (3) Acute OR Status: Acute (4) S/P angioplasty Assessment and Plan: cardiogenic shock on dopamine/ nor epinephrine Status: Acute - Assessment and Plan (Free Text) Plan: I have personally seen and examined the pt, _ Renal consult was called in because urine out put is low pt condition is gaurded
[2017-05-29] MEDS: Piperacillin/Tazobact 3.375 GM in Sodium Chloride 100 ML IVPB SCH (23:06)
--- NOTE | 2017-05-30 01:42 | CP.PCM.CON ---
History of Present Illness - History of Present Illness History of Present Illness: consutlation for s/p STEMI of LCx , cardiogenic shock on IABP and pressors HPI: 71-year-old male who was brought in by EMS yesterday after being found to be having episodes of chest pain that started around 2 PM according to son patient apparently prior to this episode was at [facility] where he was recently discharged on dual antiplatelet therapy he has been known to be 50- pack-year history of smoker along with very poor dietary hygiene and severe peripheral vascular occlusive disease status post amputations. On presentation in the ER he was noted to be severely bradycardic and hypotensive for which an emergent intubation was done and he was initiated on transcutaneous pacemakers and emergently taken to the [facility]. During catheterization he was noted to be severely hypertensive for which an intra-aortic balloon pump was placed cardiac cath revealed 100% occluded left circumflex coronary artery which was successfully opened with balloon angioplasty restoring the circulation to the left dominant system of the heart. He subsequently underwent stenting of the left circumflex coronary artery with 2 drug-eluting stents which subsequently stabilized him and he was taken off the dopamine drip post angioplasty and kept on the intra-aortic balloon pump. Patient was subsequently transferred to the ICU overnight his creatinine bumped up from 1-1.7 with minimal urine output he was switched over to levo fed for his eye and pressor support. Patient is intubated sedated and sedated minimally responsive but moving all extremities. Son is at the bedside. Review of Systems - Review of Systems All systems: reviewed and no additional remarkable complaints except - Constitutional Constitutional: As Per HPI - EENT Eyes: As Per HPI Ears: As Per HPI Nose/Mouth/Throat: As Per HPI - Cardiovascular Cardiovascular: As Per HPI - Respiratory Respiratory: As Per HPI - Gastrointestinal Gastrointestinal: As Per HPI - Genitourinary Genitourinary: As Per HPI - Reproductive: Male Reproductive:Male: As Per HPI - Musculoskeletal Musculoskeletal: As Per HPI - Integumentary Integumentary: As Per HPI - Neurological Neurological: As Per HPI - Psychiatric Psychiatric: As Per HPI - Endocrine Endocrine: As Per HPI - Hematologic/Lymphatic Hematologic: As Per HPI Past Patient History - Past Medical History & Family History Past Medical History?: Yes Pertinent Family History: +ve for HTN and DM - Past Social History Smoking Status: Unknown If Ever Smoked - CARDIAC Hx Cardiac Disorders: Yes Hx Hypercholesterolemia: Yes Hx Hypertension: Yes - RENAL Hx Chronic Kidney Disease: No (unknown) - ENDOCRINE/METABOLIC Hx Diabetes Mellitus Type 2: Yes - HEMATOLOGICAL/ONCOLOGICAL Hx Blood Disorders: No (unknown) - MUSCULOSKELETAL/RHEUMATOLOGICAL Hx Falls: No - PSYCHIATRIC Hx Substance Use: No - SURGICAL HISTORY 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) - ANESTHESIA Hx Anesthesia: Yes Meds Allergies/Adverse Reactions: Allergies Allergy/AdvReac Type Severity Reaction Status Date / Time No Known Allergies Allergy Unverified 05/28/17 18:38 - Medications Medications: Current Medications Aspirin (Aspirin Supp) 300 mg [place] DAILY [facility] Last Admin: 05/29/17 12:15 Dose: 300 mg Clopidogrel Bisulfate (Plavix) 75 mg PO DAILY [facility] Last Admin: 05/29/17 17:47 Dose: 75 mg Famotidine (Pepcid) 20 mg IVP DAILY [facility] Last Admin: 05/29/17 11:25 Dose: 20 mg Norepinephrine Bitartrate 4 mg (/ Sodium Chloride) 254 mls @ 15.24 mls/hr IV .[id number] PRN; Protocol; 4 MCG/MIN PRN Reason: TITRATE PER MD ORDER Last Admin: 05/30/17 00:00 Dose: 5.9 mcg/min, 22.5 mls/hr Propofol (Diprivan) 1,000 mg in 100 mls @ 2.4 mls/hr IV .Q24H PRN; Protocol; 5 MCG/KG/MIN PRN Reason: TITRATE PER MD ORDER Last Admin: 05/29/17 18:00 Dose: 5 mcg/kg/min, 2.4 mls/hr Dopamine HCl/Dextrose (Dopamine 400mg/250ml D5w) 400 mg in 250 mls @ 14.356 mls /hr IV .[id number] PRN; Protocol; 5 MCG/KG/MIN PRN Reason: TITRATE PER MD ORDER Last Titration: 05/29/17 12:15 Dose: 2.89 mcg/kg/min, 8.3 mls/hr Dextrose/Sodium Chloride (Dextrose 5%/0.9% Ns 1000 Ml) 1,000 mls @ 40 mls/hr IV .Q24H ONE Stop: 05/30/17 17:43 Last Admin: 05/29/17 18:01 Dose: 40 mls/hr Piperacillin Sod/Tazobactam (Sod 3.375 gm/ Sodium Chloride) 100 mls @ 200 mls/ hr IVPB Q6H [facility]UL[facility] Last Admin: 05/29/17 23:06 Dose: 200 mls/hr Insulin Human Regular (Novolin R) 0 unit SC Q6 ZULMA PRN Reason: Protocol Last Admin: 05/30/17 00:00 Dose: Not Given Lorazepam (Ativan) 1 mg IVP Q6H PRN PRN Reason: Anxiety Last Admin: 05/29/17 23:12 Dose: 1 mg Morphine Sulfate (Morphine) 2 mg IVP Q4 PRN PRN Reason: Pain, moderate (4-7) Last Admin: 05/29/17 23:12 Dose: 2 mg Rosuvastatin Calcium (Crestor) 20 mg PO HS [facility]UL[facility] Last Admin: 05/29/17 22:00 Dose: Not Given Physical Exam - Constitutional Appears: Toxic, Older Than Stated Age - Head Exam Head Exam: NORMOCEPHALIC - Eye Exam Pupil Exam: PERRL - ENT Exam ENT Exam: Mucous Membranes Moist - Neck Exam Neck exam: Positive for: Normal Inspection - Respiratory Exam Respiratory Exam: Rales - Cardiovascular Exam Cardiovascular Exam: Tachycardia, RRR, +S1, +S2, +S4, Systolic Murmur - GI/Abdominal Exam GI & Abdominal Exam: Normal Bowel Sounds, Soft - Extremities Exam Extremities exam: Positive for: normal inspection - Neurological Exam Neurological exam: Altered Results - Vital Signs Recent Vital Signs: Last Vital Signs Temp 99.5 F 05/30/17 00:00 Pulse 134 H 05/30/17 01:05 Resp 21 05/30/17 01:05 BP 142/93 H 05/30/17 01:05 Pulse Ox 100 05/30/17 01:05 - Labs Result Diagrams: 05/29/17 12:07 05/29/17 06:22 Labs: Laboratory Results - last 24 hr 05/29/17 05/29/17 05/29/17 01:45 01:46 03:04 WBC RBC Hgb Hct MCV MCH MCHC RDW Plt Count MPV Neut % (Auto) Lymph % (Auto) [place]man % (Auto) Eos % (Auto) Baso % (Auto) Neut # Lymph # Whitman # Eos # Baso # Neutrophils % (Manual) Band Neutrophils % Lymphocytes % (Manual) Monocytes % (Manual) Platelet Estimate Hypochromasia (manual) Poikilocytosis (manual Anisocytosis (manual) Ovalocytes Puncture Site pCO2 pO2 HCO3 ABG pH ABG Total CO2 ABG O2 Saturation ABG Base Excess ABG Hemoglobin ABG Carboxyhemoglobin POC ABG HHb (Measured) ABG Methemoglobin Bhanu Test A-a O2 Difference Respiratory Index Hgb O2 Saturation Vent Mode Mechanical Rate FiO2 Tidal Volume PEEP Sodium Potassium 5.5 H Chloride Carbon Dioxide Anion Gap BUN Creatinine Est GFR ( Amer) Est GFR (Non-Af Amer) POC Glucose (mg/dL) > 500 H* 340 H Random Glucose Hemoglobin A1c Calcium Phosphorus Magnesium Total Bilirubin AST ALT Alkaline Phosphatase Troponin I Total Protein Albumin Globulin Albumin/Globulin Ratio Urine Color Urine Clarity Urine pH Ur Specific [place] Urine Protein Urine Glucose (UA) Urine Ketones Urine Blood Urine Nitrate Urine Bilirubin Urine Urobilinogen Ur Leukocyte Esterase Urine RBC (Auto) Ur Squamous Epith Cells Amorphous Sediment Urine Bacteria Ur Random Creatinine Ur Random Sodium Ur Random Potassium 05/29/17 05/29/17 05/29/17 04:45 05:32 06:22 WBC 8.4 RBC 3.78 L Hgb 11.3 L Hct 34.1 L MCV 90.3 MCH 30.0 MCHC 33.2 RDW 15.8 H Plt Count 118 L MPV 9.3 Neut % (Auto) 83.4 H Lymph % (Auto) 7.0 L Whitman % (Auto) 9.1 Eos % (Auto) 0.3 Baso % (Auto) 0.2 Neut # 7.0 Lymph # 0.6 L Whitman # 0.8 Eos # 0.0 Baso # 0.0 Neutrophils % (Manual) 73 Band Neutrophils % 9 H Lymphocytes % (Manual) 10 L Monocytes % (Manual) 8 Platelet Estimate Slightly decreased L Hypochromasia (manual) Slight Poikilocytosis (manual Slight Anisocytosis (manual) Slight Ovalocytes Slight Puncture Site Rb pCO2 27 L pO2 239 H HCO3 18.1 L ABG pH 7.36 ABG Total CO2 16.1 L ABG O2 Saturation 99.0 H ABG Base Excess -8.7 L ABG Hemoglobin 12.1 ABG Carboxyhemoglobin 1.0 POC ABG HHb (Measured) 1.0 ABG Methemoglobin 1.1 Bhanu Test Na A-a O2 Difference 226.0 Respiratory Index 0.9 Hgb O2 Saturation 96.9 Vent Mode Prvc Mechanical Rate 16 FiO2 70.0 Tidal Volume 500 PEEP 5 Sodium Potassium Chloride Carbon Dioxide Anion Gap BUN Creatinine Est GFR ( Amer) Est GFR (Non-Af Amer) POC Glucose (mg/dL) 334 H Random Glucose Hemoglobin A1c Calcium Phosphorus Magnesium Total Bilirubin AST ALT Alkaline Phosphatase Troponin I Total Protein Albumin Globulin Albumin/Globulin Ratio Urine Color Urine Clarity Urine pH Ur Specific [place] Urine Protein Urine Glucose (UA) Urine Ketones Urine Blood Urine Nitrate Urine Bilirubin Urine Urobilinogen Ur Leukocyte Esterase Urine RBC (Auto) Ur Squamous Epith Cells Amorphous Sediment Urine Bacteria Ur Random Creatinine Ur Random Sodium Ur Random Potassium 05/29/17 05/29/17 05/29/17 06:22 06:22 10:34 WBC RBC Hgb Hct MCV MCH MCHC RDW Plt Count MPV Neut % (Auto) Lymph % (Auto) Whitman % (Auto) Eos % (Auto) Baso % (Auto) Neut # Lymph # [place] # Eos # Baso # Neutrophils % (Manual) Band Neutrophils % Lymphocytes % (Manual) Monocytes % (Manual) Platelet Estimate Hypochromasia (manual) Poikilocytosis (manual Anisocytosis (manual) Ovalocytes Puncture Site pCO2 pO2 HCO3 ABG pH ABG Total CO2 ABG O2 Saturation ABG Base Excess ABG Hemoglobin ABG Carboxyhemoglobin POC ABG HHb (Measured) ABG Methemoglobin Bhanu Test A-a O2 Difference Respiratory Index Hgb O2 Saturation Vent Mode Mechanical Rate FiO2 Tidal Volume PEEP Sodium 135 Potassium 5.7 H Chloride 100 Carbon Dioxide 19 L Anion Gap 22 H BUN 20 Creatinine 1.7 H Est GFR ( Amer) 49 Est GFR (Non-Af Amer) 40 POC Glucose (mg/dL) Random Glucose 302 H Hemoglobin A1c 9.4 H Calcium 8.3 L Phosphorus 3.8 Magnesium 1.6 Total Bilirubin 0.4 AST 991 H D ALT 383 H D Alkaline Phosphatase 60 Troponin I 645.0000 H* Total Protein 6.0 L Albumin 3.2 L Globulin 2.9 Albumin/Globulin Ratio 1.1 Urine Color Tamy Urine Clarity Turbid Urine pH 5.0 Ur Specific [place] 1.020 Urine Protein 3+ H Urine Glucose (UA) 3+ H Urine Ketones Negative Urine Blood 1+ H Urine Nitrate Negative Urine Bilirubin Negative Urine Urobilinogen 2.0 Ur Leukocyte Esterase Neg Urine RBC (Auto) 82 H Ur Squamous Epith Cells 1 Amorphous Sediment Rare H Urine Bacteria Few H Ur Random Creatinine Ur Random Sodium Ur Random Potassium 05/29/17 05/29/17 05/29/17 12:07 12:15 17:42 WBC 8.6 RBC 3.72 L Hgb 11.1 L Hct 32.9 L MCV 88.6 MCH 29.8 MCHC 33.7 RDW 15.4 H Plt Count 101 L MPV 9.0 Neut % (Auto) 77.5 H Lymph % (Auto) 11.6 L Whitman % (Auto) 9.4 Eos % (Auto) 1.0 Baso % (Auto) 0.5 Neut # 6.6 Lymph # 1.0 Whitman # 0.8 Eos # 0.1 Baso # 0.0 Neutrophils % (Manual) Band Neutrophils % Lymphocytes % (Manual) Monocytes % (Manual) Platelet Estimate Hypochromasia (manual) Poikilocytosis (manual Anisocytosis (manual) Ovalocytes Puncture Site pCO2 pO2 HCO3 ABG pH ABG Total CO2 ABG O2 Saturation ABG Base Excess ABG Hemoglobin ABG Carboxyhemoglobin POC ABG HHb (Measured) ABG Methemoglobin Bhanu Test A-a O2 Difference Respiratory Index Hgb O2 Saturation Vent Mode Mechanical Rate FiO2 Tidal Volume PEEP Sodium Potassium Chloride Carbon Dioxide Anion Gap BUN Creatinine Est GFR ( Amer) Est GFR (Non-Af Amer) POC Glucose (mg/dL) 153 H 62 L Random Glucose Hemoglobin A1c Calcium Phosphorus Magnesium Total Bilirubin AST ALT Alkaline Phosphatase Troponin I Total Protein Albumin Globulin Albumin/Globulin Ratio Urine Color Urine Clarity Urine pH Ur Specific [place] Urine Protein Urine Glucose (UA) Urine Ketones Urine Blood Urine Nitrate Urine Bilirubin Urine Urobilinogen Ur Leukocyte Esterase Urine RBC (Auto) Ur Squamous Epith Cells Amorphous Sediment Urine Bacteria Ur Random Creatinine Ur Random Sodium Ur Random Potassium 05/29/17 05/29/17 05/29/17 18:15 20:05 22:22 WBC RBC Hgb Hct MCV MCH MCHC RDW Plt Count MPV Neut % (Auto) Lymph % (Auto) Whitman % (Auto) Eos % (Auto) Baso % (Auto) Neut # Lymph # [place] # Eos # Baso # Neutrophils % (Manual) Band Neutrophils % Lymphocytes % (Manual) Monocytes % (Manual) Platelet Estimate Hypochromasia (manual) Poikilocytosis (manual Anisocytosis (manual) Ovalocytes Puncture Site pCO2 pO2 HCO3 ABG pH ABG Total CO2 ABG O2 Saturation ABG Base Excess ABG Hemoglobin ABG Carboxyhemoglobin POC ABG HHb (Measured) ABG Methemoglobin Bhanu Test A-a O2 Difference Respiratory Index Hgb O2 Saturation Vent Mode Mechanical Rate FiO2 Tidal Volume PEEP Sodium Potassium Chloride Carbon Dioxide Anion Gap BUN Creatinine Est GFR ( Amer) Est GFR (Non-Af Amer) POC Glucose (mg/dL) 96 73 Random Glucose Hemoglobin A1c Calcium Phosphorus Magnesium Total Bilirubin AST ALT Alkaline Phosphatase Troponin I Total Protein Albumin Globulin Albumin/Globulin Ratio Urine Color Urine Clarity Urine pH Ur Specific [place] Urine Protein Urine Glucose (UA) Urine Ketones Urine Blood Urine Nitrate Urine Bilirubin Urine Urobilinogen Ur Leukocyte Esterase Urine RBC (Auto) Ur Squamous Epith Cells Amorphous Sediment Urine Bacteria Ur Random Creatinine 155.8 Ur Random Sodium 23 Ur Random Potassium 96.4 05/30/17 00:21 WBC RBC Hgb Hct MCV MCH MCHC RDW Plt Count MPV Neut % (Auto) Lymph % (Auto) [place] % (Auto) Eos % (Auto) Baso % (Auto) Neut # Lymph # [place] # Eos # Baso # Neutrophils % (Manual) Band Neutrophils % Lymphocytes % (Manual) Monocytes % (Manual) Platelet Estimate Hypochromasia (manual) Poikilocytosis (manual Anisocytosis (manual) Ovalocytes Puncture Site pCO2 pO2 HCO3 ABG pH ABG Total CO2 ABG O2 Saturation ABG Base Excess ABG Hemoglobin ABG Carboxyhemoglobin POC ABG HHb (Measured) ABG Methemoglobin Bhanu Test A-a O2 Difference Respiratory Index Hgb O2 Saturation Vent Mode Mechanical Rate FiO2 Tidal Volume PEEP Sodium Potassium Chloride Carbon Dioxide Anion Gap BUN Creatinine Est GFR ( Amer) Est GFR (Non-Af Amer) POC Glucose (mg/dL) 87 Random Glucose Hemoglobin A1c Calcium Phosphorus Magnesium Total Bilirubin AST ALT Alkaline Phosphatase Troponin I Total Protein Albumin Globulin Albumin/Globulin Ratio Urine Color Urine Clarity Urine pH Ur Specific [place] Urine Protein Urine Glucose (UA) Urine Ketones Urine Blood Urine Nitrate Urine Bilirubin Urine Urobilinogen Ur Leukocyte Esterase Urine RBC (Auto) Ur Squamous Epith Cells Amorphous Sediment Urine Bacteria Ur Random Creatinine Ur Random Sodium Ur Random Potassium Assessment & Plan (1) Cardiogenic shock Assessment and Plan: initiate on low dose dopamine cont with low dose levo cont with IABP x 24 hours Status: Acute (2) Acute OH Assessment and Plan: cont with DAPT BB on hold 2' to shock echo EF 25% IABP for support Status: Acute (3) S/P angioplasty Status: Acute
[2017-05-30] MEDS: Piperacillin/Tazobact 3.375 GM in Sodium Chloride 100 ML IVPB SCH ×4 (04:03→22:20)
[2017-05-30 05:39] LABS: ABG MECHANICAL RATE 16; ARTERIAL BLOOD GAS MODE PRVC; ARTERIAL BLOOD HGB O2 SAT 91.5 % (95.0-98.0); ATERIAL BLOOD GAS PEEP 5; CARBOXYHEMOGLOBIN 1.2 % (0.5-1.5); DRAW SITE RB; HHB 6.4 % (0.0-5.0); METHEMOGLOBIN 0.9 % (0.0-3.0)
[2017-05-30] MEDS: (Novolin R) Insulin Human Regular 100 units/ml vial SC SCH ×4 (05:50→17:54)
[2017-05-30 06:08] LABS: BASO % 0.5 % (0.0-2.0); EOS % 0.6 % (0.0-4.0); HEMATOCRIT 30.5 % (35.0-51.0); LYMPH # 0.6 K/uL (1.0-4.3); LYMPH % 9.5 % (20.0-40.0); MEAN CELL VOLUME 89.2 fL (80.0-94.0); MEAN CORPUSCULAR HEMOGLOBIN 30.2 pg (27.0-31.0); MEAN CORPUSCULAR HGB CONC 33.9 g/dL (33.0-37.0); MEAN PLATELET VOLUME 9.1 fL (7.2-11.7); MONO # 0.4 K/uL (0.0-0.8); MONO % 7.3 % (0.0-10.0); NRBC % 0.1 % (0.0-2.0); PLATELET COUNT 65 K/uL (130-400); RED CELL DISTRIBUTION WIDTH 15.7 % (11.5-14.5); WHITE BLOOD COUNT 6.1 K/uL (4.8-10.8)
[2017-05-30 06:29] LABS: POTASSIUM 4.5 mmol/L (3.6-5.2)
[2017-05-30 06:32] LABS: ALB/GLOB RATIO 1.1 (1.0-2.1); BILIRUBIN,TOTAL 0.7 mg/dL (0.2-1.3); PHOSPHOROUS 4.6 mg/dL (2.5-4.5); TOTAL PROTEIN 6.1 g/dL (6.3-8.3)
[2017-05-30 06:33] LABS: CALCIUM 8.4 mg/dl (8.6-10.4); MAGNESIUM 1.9 mg/dL (1.6-2.3)
[2017-05-30] MEDS: Albuterol-Ipratrop 3 mg / 0.5 (3 ml) UD INH SCH ×4 (07:10→19:43)
[2017-05-30] MEDS ORDERED: Acetylcysteine 20% Inhal Soln (4ml) INH SCH (07:45)
[2017-05-30] MEDS ORDERED: Albuterol-Ipratrop 3 mg / 0.5 (3 ml) UD INH SCH (07:45)
[2017-05-30] MEDS ORDERED: Albuterol-Ipratrop 3 mg / 0.5 (3 ml) UD INH ONE (08:00)
--- NOTE | 2017-05-30 08:14 | RAD ---
HISTORY: s/p cath COMPARISON: 05/29/2017 FINDINGS: LUNGS: Complete opacification-left hemithorax possible minimal volume loss suggested. -marked interval change. Right mild pulmonary venous congestion suggested PLEURA: Left pleural effusion possible no pneumothorax apparent. CARDIOVASCULAR: Not assessable OSSEOUS STRUCTURES: Moderate thoracic spondylosis VISUALIZED UPPER ABDOMEN: Normal. OTHER FINDINGS: Endotracheal tube tip 4- 5 cm from aguila. Device apparent over with were thoraco lumbar level. NG tube tip in stomach Apparent lead -from inferior approach inferior vena cava -tip projecting over expected right ventricle similar appearance IMPRESSION: Marked interval change -left lung white out -minimal volume loss. Left lung with or without left pleural effusion.
--- NOTE | 2017-05-30 08:42 | CP.PCM.CON ---
History of Present Illness - History of Present Illness History of Present Illness: pt is seen and examined, full consult is dictated #[id number] Past Patient History - Past Medical History & Family History Past Medical History?: Yes - Past Social History Smoking Status: Unknown If Ever Smoked - CARDIAC Hx Cardiac Disorders: Yes Hx Hypercholesterolemia: Yes Hx Hypertension: Yes - RENAL Hx Chronic Kidney Disease: No (unknown) - ENDOCRINE/METABOLIC Hx Diabetes Mellitus Type 2: Yes - HEMATOLOGICAL/ONCOLOGICAL Hx Blood Disorders: No (unknown) - MUSCULOSKELETAL/RHEUMATOLOGICAL Hx Falls: No - PSYCHIATRIC Hx Substance Use: No - SURGICAL HISTORY 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) - ANESTHESIA Hx Anesthesia: Yes Meds Allergies/Adverse Reactions: Allergies Allergy/AdvReac Type Severity Reaction Status Date / Time No Known Allergies Allergy Unverified 05/28/17 18:38 - Medications Medications: Current Medications Acetylcysteine (Acetylcysteine 20%) 4 ml INH Q4H [facility] Aspirin (Aspirin Supp) 300 mg [place] DAILY [facility] Last Admin: 05/29/17 12:15 Dose: 300 mg Clopidogrel Bisulfate (Plavix) 75 mg PO DAILY [facility] Last Admin: 05/29/17 17:47 Dose: 75 mg Famotidine (Pepcid) 20 mg IVP DAILY [facility] Last Admin: 05/29/17 11:25 Dose: 20 mg Norepinephrine Bitartrate 4 mg (/ Sodium Chloride) 254 mls @ 15.24 mls/hr IV .[id number] PRN; Protocol; 4 MCG/MIN PRN Reason: TITRATE PER MD ORDER Last Admin: 05/30/17 00:00 Dose: 5.9 mcg/min, 22.5 mls/hr Propofol (Diprivan) 1,000 mg in 100 mls @ 2.4 mls/hr IV .Q24H PRN; Protocol; 5 MCG/KG/MIN PRN Reason: TITRATE PER MD ORDER Last Admin: 05/29/17 18:00 Dose: 5 mcg/kg/min, 2.4 mls/hr Dopamine HCl/Dextrose (Dopamine 400mg/250ml D5w) 400 mg in 250 mls @ 14.356 mls /hr IV .[id number] PRN; Protocol; 5 MCG/KG/MIN PRN Reason: TITRATE PER MD ORDER Last Titration: 05/29/17 12:15 Dose: 2.89 mcg/kg/min, 8.3 mls/hr Dextrose/Sodium Chloride (Dextrose 5%/0.9% Ns 1000 Ml) 1,000 mls @ 40 mls/hr IV .Q24H ONE Stop: 05/30/17 17:43 Last Admin: 05/29/17 18:01 Dose: 40 mls/hr Piperacillin Sod/Tazobactam (Sod 3.375 gm/ Sodium Chloride) 100 mls @ 200 mls/ hr IVPB Q6H [facility] Last Admin: 05/30/17 04:03 Dose: 200 mls/hr Insulin Human Regular (Novolin R) 0 unit SC Q6 ZULMA PRN Reason: Protocol Last Admin: 05/30/17 05:50 Dose: Not Given Lorazepam (Ativan) 1 mg IVP Q6H PRN PRN Reason: Anxiety Last Admin: 05/29/17 23:12 Dose: 1 mg Morphine Sulfate (Morphine) 2 mg IVP Q4 PRN PRN Reason: Pain, moderate (4-7) Last Admin: 05/30/17 04:29 Dose: 2 mg Rosuvastatin Calcium (Crestor) 20 mg PO HS [facility] Last Admin: 05/29/17 22:00 Dose: Not Given Results - Vital Signs Recent Vital Signs: Last Vital Signs Temp 98.4 F 05/30/17 08:00 Pulse 130 H 05/30/17 08:05 Resp 21 05/30/17 08:05 BP 147/96 H 05/30/17 08:05 Pulse Ox 98 05/30/17 08:05 - Labs Result Diagrams: 05/30/17 05:59 05/30/17 05:59 Labs: Laboratory Results - last 24 hr 05/29/17 05/29/17 05/29/17 10:34 12:07 12:15 WBC 8.6 RBC 3.72 L Hgb 11.1 L Hct 32.9 L MCV 88.6 MCH 29.8 MCHC 33.7 RDW 15.4 H Plt Count 101 L MPV 9.0 Neut % (Auto) 77.5 H Lymph % (Auto) 11.6 L Edwards % (Auto) 9.4 Eos % (Auto) 1.0 Baso % (Auto) 0.5 Neut # 6.6 Lymph # 1.0 Edwards # 0.8 Eos # 0.1 Baso # 0.0 Puncture Site pCO2 pO2 HCO3 ABG pH ABG Total CO2 ABG O2 Saturation ABG Base Excess ABG Hemoglobin ABG Carboxyhemoglobin POC ABG HHb (Measured) ABG Methemoglobin Bhanu Test A-a O2 Difference Respiratory Index Hgb O2 Saturation Vent Mode Mechanical Rate FiO2 Tidal Volume PEEP Sodium Potassium Chloride Carbon Dioxide Anion Gap BUN Creatinine Est GFR ( Amer) Est GFR (Non-Af Amer) POC Glucose (mg/dL) 153 H Random Glucose Calcium Phosphorus Magnesium Total Bilirubin AST ALT Alkaline Phosphatase Total Protein Albumin Globulin Albumin/Globulin Ratio Urine Color Tamy Urine Clarity Turbid Urine pH 5.0 Ur Specific [place] 1.020 Urine Protein 3+ H Urine Glucose (UA) 3+ H Urine Ketones Negative Urine Blood 1+ H Urine Nitrate Negative Urine Bilirubin Negative Urine Urobilinogen 2.0 Ur Leukocyte Esterase Neg Urine RBC (Auto) 82 H Ur Squamous Epith Cells 1 Amorphous Sediment Rare H Urine Bacteria Few H Ur Random Creatinine Ur Random Sodium Ur Random Potassium 05/29/17 05/29/17 05/29/17 17:42 18:15 20:05 WBC RBC Hgb Hct MCV MCH MCHC RDW Plt Count MPV Neut % (Auto) Lymph % (Auto) Edwards % (Auto) Eos % (Auto) Baso % (Auto) Neut # Lymph # Edwards # Eos # Baso # Puncture Site pCO2 pO2 HCO3 ABG pH ABG Total CO2 ABG O2 Saturation ABG Base Excess ABG Hemoglobin ABG Carboxyhemoglobin POC ABG HHb (Measured) ABG Methemoglobin Bhanu Test A-a O2 Difference Respiratory Index Hgb O2 Saturation Vent Mode Mechanical Rate FiO2 Tidal Volume PEEP Sodium Potassium Chloride Carbon Dioxide Anion Gap BUN Creatinine Est GFR ( Amer) Est GFR (Non-Af Amer) POC Glucose (mg/dL) 62 L 96 Random Glucose Calcium Phosphorus Magnesium Total Bilirubin AST ALT Alkaline Phosphatase Total Protein Albumin Globulin Albumin/Globulin Ratio Urine Color Urine Clarity Urine pH Ur Specific [place] Urine Protein Urine Glucose (UA) Urine Ketones Urine Blood Urine Nitrate Urine Bilirubin Urine Urobilinogen Ur Leukocyte Esterase Urine RBC (Auto) Ur Squamous Epith Cells Amorphous Sediment Urine Bacteria Ur Random Creatinine 155.8 Ur Random Sodium 23 Ur Random Potassium 96.4 05/29/17 05/30/17 05/30/17 22:22 00:21 05:05 WBC RBC Hgb Hct MCV MCH MCHC RDW Plt Count MPV Neut % (Auto) Lymph % (Auto) [place] % (Auto) Eos % (Auto) Baso % (Auto) Neut # Lymph # [place] # Eos # Baso # Puncture Site Rb pCO2 28 L pO2 62 L HCO3 21.9 ABG pH 7.44 ABG Total CO2 19.9 L ABG O2 Saturation 93.5 L ABG Base Excess -3.6 L ABG Hemoglobin 15.3 ABG Carboxyhemoglobin 1.2 POC ABG HHb (Measured) 6.4 H ABG Methemoglobin 0.9 Bhanu Test Na A-a O2 Difference 260.0 Respiratory Index 4.2 Hgb O2 Saturation 91.5 L Vent Mode Prvc Mechanical Rate 16 FiO2 50.0 Tidal Volume 500 PEEP 5 Sodium Potassium Chloride Carbon Dioxide Anion Gap BUN Creatinine Est GFR ( Amer) Est GFR (Non-Af Amer) POC Glucose (mg/dL) 73 87 Random Glucose Calcium Phosphorus Magnesium Total Bilirubin AST ALT Alkaline Phosphatase Total Protein Albumin Globulin Albumin/Globulin Ratio Urine Color Urine Clarity Urine pH Ur Specific [place] Urine Protein Urine Glucose (UA) Urine Ketones Urine Blood Urine Nitrate Urine Bilirubin Urine Urobilinogen Ur Leukocyte Esterase Urine RBC (Auto) Ur Squamous Epith Cells Amorphous Sediment Urine Bacteria Ur Random Creatinine Ur Random Sodium Ur Random Potassium 05/30/17 05/30/17 05/30/17 05:48 05:59 05:59 WBC 6.1 RBC 3.42 L Hgb 10.3 L Hct 30.5 L MCV 89.2 MCH 30.2 MCHC 33.9 RDW 15.7 H Plt Count 65 L D MPV 9.1 Neut % (Auto) 82.1 H Lymph % (Auto) 9.5 L [place] % (Auto) 7.3 Eos % (Auto) 0.6 Baso % (Auto) 0.5 Neut # 5.0 Lymph # 0.6 L Edwards # 0.4 Eos # 0.0 Baso # 0.0 Puncture Site pCO2 pO2 HCO3 ABG pH ABG Total CO2 ABG O2 Saturation ABG Base Excess ABG Hemoglobin ABG Carboxyhemoglobin POC ABG HHb (Measured) ABG Methemoglobin Bhanu Test A-a O2 Difference Respiratory Index Hgb O2 Saturation Vent Mode Mechanical Rate FiO2 Tidal Volume PEEP Sodium 140 Potassium 4.5 Chloride 108 H Carbon Dioxide 22 Anion Gap 15 BUN 35 H Creatinine 1.5 Est GFR ( Amer) 56 Est GFR (Non-Af Amer) 46 POC Glucose (mg/dL) 111 H Random Glucose 94 Calcium 8.4 L Phosphorus 4.6 H Magnesium 1.9 Total Bilirubin 0.7 AST 1449 H ALT 1369 H Alkaline Phosphatase 59 Total Protein 6.1 L Albumin 3.1 L Globulin 2.9 Albumin/Globulin Ratio 1.1 Urine Color Urine Clarity Urine pH Ur Specific [place] Urine Protein Urine Glucose (UA) Urine Ketones Urine Blood Urine Nitrate Urine Bilirubin Urine Urobilinogen Ur Leukocyte Esterase Urine RBC (Auto) Ur Squamous Epith Cells Amorphous Sediment Urine Bacteria Ur Random Creatinine Ur Random Sodium Ur Random Potassium
[2017-05-30 08:50] LABS: NEUTROPHIL 82 % (50-75); TOTAL CELLS COUNTED 100
--- NOTE | 2017-05-30 09:45 | RAD ---
Chest x-ray single frontal view History: Follow-up. Comparison: 05/30/2017 Findings: Lines and tubes in stable position. Improved aeration within the left lung with persistent consolidative opacification in the left upper to mid lung zone. Right hilar prominence. Cardiomegaly. Degenerative changes in the spine and shoulders. Impression: Lines and tubes in stable position. Improved aeration within the left lung with persistent consolidative opacification in the left upper to mid lung zone. Right hilar prominence. Cardiomegaly.
--- NOTE | 2017-05-30 09:57 | CP.PCM.PN ---
Subjective - Date & Time of Evaluation Date of Evaluation: 05/30/17 Time of Evaluation: 10:00 Objective - Vital Signs/Intake and Output Vital Signs (last 24 hours): Temp Pulse Resp BP Pulse Ox 98.4 F 131 H 23 147/95 H 92 L 05/30/17 09:00 05/30/17 09:05 05/30/17 09:05 05/30/17 09:05 05/30/17 09:05 Intake and Output: 05/30/17 05/30/17 06:59 18:59 Intake Total 1163.4 409.2 Output Total 375 155 Balance 788.4 254.2 - Medications Medications: Current Medications Acetylcysteine (Acetylcysteine 20%) 4 ml INH Q4H [facility] Aspirin (Aspirin Supp) 300 mg [place] DAILY [facility] Last Admin: 05/29/17 12:15 Dose: 300 mg Clopidogrel Bisulfate (Plavix) 75 mg PO DAILY [facility] Last Admin: 05/30/17 09:43 Dose: 75 mg Famotidine (Pepcid) 20 mg IVP DAILY [facility] Last Admin: 05/30/17 09:43 Dose: 20 mg Norepinephrine Bitartrate 4 mg (/ Sodium Chloride) 254 mls @ 15.24 mls/hr IV .[id number] PRN; Protocol; 4 MCG/MIN PRN Reason: TITRATE PER MD ORDER Last Titration: 05/30/17 08:49 Dose: 4 mcg/min, 15.24 mls/hr Propofol (Diprivan) 1,000 mg in 100 mls @ 2.4 mls/hr IV .Q24H PRN; Protocol; 5 MCG/KG/MIN PRN Reason: TITRATE PER MD ORDER Last Titration: 05/30/17 08:51 Dose: 20 mcg/kg/min, 9.6 mls/hr Dopamine HCl/Dextrose (Dopamine 400mg/250ml D5w) 400 mg in 250 mls @ 14.356 mls /hr IV .[id number] PRN; Protocol; 5 MCG/KG/MIN PRN Reason: TITRATE PER MD ORDER Last Titration: 05/29/17 12:15 Dose: 2.89 mcg/kg/min, 8.3 mls/hr Piperacillin Sod/Tazobactam (Sod 3.375 gm/ Sodium Chloride) 100 mls @ 200 mls/ hr IVPB Q6H [facility] Last Admin: 05/30/17 09:43 Dose: 200 mls/hr Dextrose/Sodium Chloride (Dextrose 5%/0.9% Ns 1000 Ml) 1,000 mls @ 60 mls/hr IV .[id number] [facility] Insulin Human Regular (Novolin R) 0 unit SC Q6 ZULMA PRN Reason: Protocol Last Admin: 05/30/17 05:50 Dose: Not Given Lorazepam (Ativan) 1 mg IVP Q6H PRN PRN Reason: Anxiety Last Admin: 05/29/17 23:12 Dose: 1 mg Morphine Sulfate (Morphine) 2 mg IVP Q4 PRN PRN Reason: Pain, moderate (4-7) Last Admin: 05/30/17 04:29 Dose: 2 mg Rosuvastatin Calcium (Crestor) 20 mg PO HS ZULMA Last Admin: 05/29/17 22:00 Dose: Not Given - Labs Labs: 05/30/17 05:59 05/30/17 05:59 PT 10.9 SECONDS (9.7-12.2) 05/28/17 18:02 INR 1.0 05/28/17 18:02 APTT 18 SECONDS (21-34) L 05/28/17 18:02 Assessment and Plan (1) Endotracheally intubated Status: Acute (2) Hypotension Status: Acute (3) Acute [place] Status: Acute (4) S/P angioplasty Status: Acute
--- NOTE | 2017-05-30 10:10 | RAD ---
Chest x-ray single frontal view History: Mucous plugging. Comparison: 05/30/2017 Findings: Persistent complete opacification of the left marge thorax. Endotracheal tube extending into the mid thoracic trachea. NG tube extending into the stomach. Multiple overlying external wires and tubing. Venous congestion in the right lung field. Right hilar prominence. Right peritracheal prominence likely represents prominent vasculature. Heart is obscured. Degenerative changes the spine. Impression: Persistent complete opacification of the left marge thorax. Endotracheal tube extending into the mid thoracic trachea. NG tube extending into the stomach. Multiple overlying external wires and tubing. Venous congestion in the right lung field. Right hilar prominence. Right peritracheal prominence likely represents prominent vasculature. Heart is obscured.
[2017-05-30] MEDS ORDERED: Magnesium Sulfate 1 gm in D5W 1 GM/100 ML BAG IVPB ONE (10:37)
[2017-05-30] MEDS: Propofol 10 mg/ml 1,000 MG/100 ML VIAL IV PRN ×3 (10:48→22:13)
[2017-05-30] MEDS: Dextrose 5%/0.9% NS 1,000 ML IV SCH (11:19)
--- NOTE | 2017-05-30 11:26 | CP.CCUPN ---
<Perfecto Veliz Lazaro - Last Filed: 05/30/17 20:43> CCU Subjective - Physician Review Subjective (Free Text): Patient seen and examined at bedside. He is intubated and sedated therefore subjective history was unable to be obtained because of current status. No acute events overnight. Medical records, labs and imaging were reviewed. Case was discussed with house staff. 05/30/17 20:43 CCU Objective - Vital Signs / Intake & Output Vital Signs (Last 4 hours): Vital Signs Temp Pulse Resp BP Pulse Ox 05/30/17 11:00 170 H 05/30/17 10:06 162 H 41 H 134/82 98 05/30/17 10:00 140 H 37 H 05/30/17 09:05 131 H 23 147/95 H 92 L 05/30/17 09:00 98.4 F 131 H 26 H 92 L 05/30/17 08:05 130 H 21 147/96 H 98 05/30/17 08:00 98.4 F 134 H 16 94 L Intake and Output (Last 8hrs): Intake & Output 05/29/17 05/30/17 05/30/17 22:59 06:59 14:59 Intake Total 999.2 627.8 676.2 Output Total 370 235 305 Balance 629.2 392.8 371.2 Weight 166 lb Intake: IV 300 198 Intake, IV Amount 649.2 627.8 478.2 Right Distal Port 320 420 320 Right Medial Port Femoral 25.2 35.2 53.2 Right Proximal Port 240 108.6 65.0 Femoral rt proximal sideport 64 64 40 Other 50 Output: Urine 370 235 305 Urethral (Sifuentes) 370 235 305 - Medications Active Medications: Active Medications Generic Name Dose Route Start Last Admin Trade Name Freq PRN Reason Stop Dose Admin Acetylcysteine 4 ml 05/30/17 07:45 Acetylcysteine 20% INH Q4H ZULMA Aspirin 300 mg 05/29/17 12:00 05/30/17 10:12 Aspirin Supp NV 300 mg DAILY ZULMA Administration Clopidogrel Bisulfate 75 mg 05/29/17 10:00 05/30/17 09:43 Plavix PO 75 mg DAILY ZULMA Administration Famotidine 20 mg 05/29/17 10:35 05/30/17 09:43 Pepcid IVP 20 mg DAILY ZULMA Administration Propofol 1,000 mg in 100 mls @ 2.4 mls/hr 05/29/17 01:00 05/30/17 10:48 Diprivan IV 35 mcg/kg/min .Q24H PRN 16.8 mls/hr TITRATE PER MD ORDER Administration Protocol 5 MCG/KG/MIN Piperacillin Sod/Tazobactam 100 mls @ 200 mls/hr 05/29/17 22:30 05/30/17 09: 43 Sod 3.375 gm/ Sodium Chloride IVPB 200 mls/hr Q6H ZULMA Administration Dextrose/Sodium Chloride 1,000 mls @ 60 mls/hr 05/30/17 09:45 05/30/17 11:19 Dextrose 5%/0.9% Ns 1000 Ml IV 60 mls/hr .[id number] ZULMA Administration Phenylephrine HCl 30 mg/ 253 mls @ 10.12 mls/hr 05/30/17 11:20 Dextrose IV .Q24H PRN TITRATE PER MD ORDER Protocol 20 MCG/MIN Insulin Human Regular 0 unit 05/29/17 00:00 05/30/17 05:50 Novolin R SC Not Given Q6 [facility] Protocol Lorazepam 1 mg 05/29/17 22:41 05/29/17 23:12 Ativan IVP 1 mg Q6H PRN Administration Anxiety Morphine Sulfate 2 mg 05/29/17 22:41 05/30/17 04:29 Morphine IVP 2 mg Q4 PRN Administration Pain, moderate (4-7) Rosuvastatin Calcium 20 mg 05/29/17 22:00 05/29/17 22:00 Crestor PO Not Given HS [facility] - Patient Studies Lab Studies: Lab Studies 05/30/17 05/30/17 05/30/17 Range/Units 05:59 05:59 05:48 WBC 6.1 (4.8-10.8) K/uL RBC 3.42 L (4.40-5.90) Mil/uL Hgb 10.3 L (12.0-18.0) g/dL Hct 30.5 L (35.0-51.0) % MCV 89.2 (80.0-94.0) fL MCH 30.2 (27.0-31.0) pg MCHC 33.9 (33.0-37.0) g/dL RDW 15.7 H (11.5-14.5) % Plt Count 65 L D (130-400) K/uL MPV 9.1 (7.2-11.7) fL Neut % (Auto) 82.1 H (50.0-75.0) % Lymph % (Auto) 9.5 L (20.0-40.0) % [place] % (Auto) 7.3 (0.0-10.0) % Eos % (Auto) 0.6 (0.0-4.0) % Baso % (Auto) 0.5 (0.0-2.0) % Neut # 5.0 (1.8-7.0) K/uL Lymph # 0.6 L (1.0-4.3) K/uL [place] # 0.4 (0.0-0.8) K/uL Eos # 0.0 (0.0-0.7) K/uL Baso # 0.0 (0.0-0.2) K/uL Neutrophils % (Manual) 82 H (50-75) % Band Neutrophils % 4 H (0-2) % Lymphocytes % (Manual) 9 L (20-40) % Monocytes % (Manual) 5 (0-10) % Platelet Estimate Decreased L (NORMAL) Hypochromasia (manual) Slight Poikilocytosis (manual Slight Anisocytosis (manual) Slight Puncture Site pCO2 (35-45) mm/Hg pO2 (80-100) mm/Hg HCO3 (21-28) mmol/L ABG pH (7.35-7.45) ABG Total CO2 (22-28) mmol/L ABG O2 Saturation (95-98) % ABG Base Excess (-2.0-3.0) mmol/L ABG Hemoglobin (11.7-17.4) g/dL ABG Carboxyhemoglobin (0.5-1.5) % POC ABG HHb (Measured) (0.0-5.0) % ABG Methemoglobin (0.0-3.0) % Bhanu Test A-a O2 Difference mm/Hg Respiratory Index Hgb O2 Saturation (95.0-98.0) % Vent Mode Mechanical Rate FiO2 % Tidal Volume PEEP Sodium 140 (132-148) mmol/L Potassium 4.5 (3.6-5.2) mmol/L Chloride 108 H (98-107) mmol/L Carbon Dioxide 22 (22-30) mmol/L Anion Gap 15 (10-20) BUN 35 H (9-20) mg/dL Creatinine 1.5 (0.8-1.5) MG/DL Est GFR ( Amer) 56 Est GFR (Non-Af Amer) 46 POC Glucose (mg/dL) 111 H (65-110) mg/dL Random Glucose 94 (75-110) mg/dL Calcium 8.4 L (8.6-10.4) mg/dl Phosphorus 4.6 H (2.5-4.5) mg/dL Magnesium 1.9 (1.6-2.3) mg/dL Total Bilirubin 0.7 (0.2-1.3) mg/dL AST 1449 H (17-59) U/L ALT 1369 H (21-72) U/L Alkaline Phosphatase 59 (38-126) U/L Total Protein 6.1 L (6.3-8.3) g/dL Albumin 3.1 L (3.5-5.0) g/dL Globulin 2.9 (2.2-3.9) gm/dL Albumin/Globulin Ratio 1.1 (1.0-2.1) Ur Random Creatinine mg/dL Ur Random Sodium mmol/L Ur Random Potassium mmol/L 05/30/17 05/30/17 05/29/17 Range/Units 05:05 00:21 22:22 WBC (4.8-10.8) K/uL RBC (4.40-5.90) Mil/uL Hgb (12.0-18.0) g/dL Hct (35.0-51.0) % MCV (80.0-94.0) fL MCH (27.0-31.0) pg MCHC (33.0-37.0) g/dL RDW (11.5-14.5) % Plt Count (130-400) K/uL MPV (7.2-11.7) fL Neut % (Auto) (50.0-75.0) % Lymph % (Auto) (20.0-40.0) % [place] % (Auto) (0.0-10.0) % Eos % (Auto) (0.0-4.0) % Baso % (Auto) (0.0-2.0) % Neut # (1.8-7.0) K/uL Lymph # (1.0-4.3) K/uL [place] # (0.0-0.8) K/uL Eos # (0.0-0.7) K/uL Baso # (0.0-0.2) K/uL Neutrophils % (Manual) (50-75) % Band Neutrophils % (0-2) % Lymphocytes % (Manual) (20-40) % Monocytes % (Manual) (0-10) % Platelet Estimate (NORMAL) Hypochromasia (manual) Poikilocytosis (manual Anisocytosis (manual) Puncture Site Rb pCO2 28 L (35-45) mm/Hg pO2 62 L (80-100) mm/Hg HCO3 21.9 (21-28) mmol/L ABG pH 7.44 (7.35-7.45) ABG Total CO2 19.9 L (22-28) mmol/L ABG O2 Saturation 93.5 L (95-98) % ABG Base Excess -3.6 L (-2.0-3.0) mmol/L ABG Hemoglobin 15.3 (11.7-17.4) g/dL ABG Carboxyhemoglobin 1.2 (0.5-1.5) % POC ABG HHb (Measured) 6.4 H (0.0-5.0) % ABG Methemoglobin 0.9 (0.0-3.0) % Bhanu Test Na A-a O2 Difference 260.0 mm/Hg Respiratory Index 4.2 Hgb O2 Saturation 91.5 L (95.0-98.0) % Vent Mode Prvc Mechanical Rate 16 FiO2 50.0 % Tidal Volume 500 PEEP 5 Sodium (132-148) mmol/L Potassium (3.6-5.2) mmol/L Chloride (98-107) mmol/L Carbon Dioxide (22-30) mmol/L Anion Gap (10-20) BUN (9-20) mg/dL Creatinine (0.8-1.5) MG/DL Est GFR ( Amer) Est GFR (Non-Af Amer) POC Glucose (mg/dL) 87 73 (65-110) mg/dL Random Glucose (75-110) mg/dL Calcium (8.6-10.4) mg/dl Phosphorus (2.5-4.5) mg/dL Magnesium (1.6-2.3) mg/dL Total Bilirubin (0.2-1.3) mg/dL AST (17-59) U/L ALT (21-72) U/L Alkaline Phosphatase (38-126) U/L Total Protein (6.3-8.3) g/dL Albumin (3.5-5.0) g/dL Globulin (2.2-3.9) gm/dL Albumin/Globulin Ratio (1.0-2.1) Ur Random Creatinine mg/dL Ur Random Sodium mmol/L Ur Random Potassium mmol/L 05/29/17 05/29/17 05/29/17 Range/Units 20:05 18:15 17:42 WBC (4.8-10.8) K/uL RBC (4.40-5.90) Mil/uL Hgb (12.0-18.0) g/dL Hct (35.0-51.0) % MCV (80.0-94.0) fL MCH (27.0-31.0) pg MCHC (33.0-37.0) g/dL RDW (11.5-14.5) % Plt Count (130-400) K/uL MPV (7.2-11.7) fL Neut % (Auto) (50.0-75.0) % Lymph % (Auto) (20.0-40.0) % [place] % (Auto) (0.0-10.0) % Eos % (Auto) (0.0-4.0) % Baso % (Auto) (0.0-2.0) % Neut # (1.8-7.0) K/uL Lymph # (1.0-4.3) K/uL [place] # (0.0-0.8) K/uL Eos # (0.0-0.7) K/uL Baso # (0.0-0.2) K/uL Neutrophils % (Manual) (50-75) % Band Neutrophils % (0-2) % Lymphocytes % (Manual) (20-40) % Monocytes % (Manual) (0-10) % Platelet Estimate (NORMAL) Hypochromasia (manual) Poikilocytosis (manual Anisocytosis (manual) Puncture Site pCO2 (35-45) mm/Hg pO2 (80-100) mm/Hg HCO3 (21-28) mmol/L ABG pH (7.35-7.45) ABG Total CO2 (22-28) mmol/L ABG O2 Saturation (95-98) % ABG Base Excess (-2.0-3.0) mmol/L ABG Hemoglobin (11.7-17.4) g/dL ABG Carboxyhemoglobin (0.5-1.5) % POC ABG HHb (Measured) (0.0-5.0) % ABG Methemoglobin (0.0-3.0) % Bhanu Test A-a O2 Difference mm/Hg Respiratory Index Hgb O2 Saturation (95.0-98.0) % Vent Mode Mechanical Rate FiO2 % Tidal Volume PEEP Sodium (132-148) mmol/L Potassium (3.6-5.2) mmol/L Chloride (98-107) mmol/L Carbon Dioxide (22-30) mmol/L Anion Gap (10-20) BUN (9-20) mg/dL Creatinine (0.8-1.5) MG/DL Est GFR ( Amer) Est GFR (Non-Af Amer) POC Glucose (mg/dL) 96 62 L (65-110) mg/dL Random Glucose (75-110) mg/dL Calcium (8.6-10.4) mg/dl Phosphorus (2.5-4.5) mg/dL Magnesium (1.6-2.3) mg/dL Total Bilirubin (0.2-1.3) mg/dL AST (17-59) U/L ALT (21-72) U/L Alkaline Phosphatase (38-126) U/L Total Protein (6.3-8.3) g/dL Albumin (3.5-5.0) g/dL Globulin (2.2-3.9) gm/dL Albumin/Globulin Ratio (1.0-2.1) Ur Random Creatinine 155.8 mg/dL Ur Random Sodium 23 mmol/L Ur Random Potassium 96.4 mmol/L 05/29/17 05/29/17 Range/Units 12:15 12:07 WBC 8.6 (4.8-10.8) K/uL RBC 3.72 L (4.40-5.90) Mil/uL Hgb 11.1 L (12.0-18.0) g/dL Hct 32.9 L (35.0-51.0) % MCV 88.6 (80.0-94.0) fL MCH 29.8 (27.0-31.0) pg MCHC 33.7 (33.0-37.0) g/dL RDW 15.4 H (11.5-14.5) % Plt Count 101 L (130-400) K/uL MPV 9.0 (7.2-11.7) fL Neut % (Auto) 77.5 H (50.0-75.0) % Lymph % (Auto) 11.6 L (20.0-40.0) % [place] % (Auto) 9.4 (0.0-10.0) % Eos % (Auto) 1.0 (0.0-4.0) % Baso % (Auto) 0.5 (0.0-2.0) % Neut # 6.6 (1.8-7.0) K/uL Lymph # 1.0 (1.0-4.3) K/uL [place] # 0.8 (0.0-0.8) K/uL Eos # 0.1 (0.0-0.7) K/uL Baso # 0.0 (0.0-0.2) K/uL Neutrophils % (Manual) (50-75) % Band Neutrophils % (0-2) % Lymphocytes % (Manual) (20-40) % Monocytes % (Manual) (0-10) % Platelet Estimate (NORMAL) Hypochromasia (manual) Poikilocytosis (manual Anisocytosis (manual) Puncture Site pCO2 (35-45) mm/Hg pO2 (80-100) mm/Hg HCO3 (21-28) mmol/L ABG pH (7.35-7.45) ABG Total CO2 (22-28) mmol/L ABG O2 Saturation (95-98) % ABG Base Excess (-2.0-3.0) mmol/L ABG Hemoglobin (11.7-17.4) g/dL ABG Carboxyhemoglobin (0.5-1.5) % POC ABG HHb (Measured) (0.0-5.0) % ABG Methemoglobin (0.0-3.0) % Bhanu Test A-a O2 Difference mm/Hg Respiratory Index Hgb O2 Saturation (95.0-98.0) % Vent Mode Mechanical Rate FiO2 % Tidal Volume PEEP Sodium (132-148) mmol/L Potassium (3.6-5.2) mmol/L Chloride (98-107) mmol/L Carbon Dioxide (22-30) mmol/L Anion Gap (10-20) BUN (9-20) mg/dL Creatinine (0.8-1.5) MG/DL Est GFR ( Amer) Est GFR (Non-Af Amer) POC Glucose (mg/dL) 153 H (65-110) mg/dL Random Glucose (75-110) mg/dL Calcium (8.6-10.4) mg/dl Phosphorus (2.5-4.5) mg/dL Magnesium (1.6-2.3) mg/dL Total Bilirubin (0.2-1.3) mg/dL AST (17-59) U/L ALT (21-72) U/L Alkaline Phosphatase (38-126) U/L Total Protein (6.3-8.3) g/dL Albumin (3.5-5.0) g/dL Globulin (2.2-3.9) gm/dL Albumin/Globulin Ratio (1.0-2.1) Ur Random Creatinine mg/dL Ur Random Sodium mmol/L Ur Random Potassium mmol/L Laboratory Results - last 24 hr 05/29/17 05/29/17 05/29/17 12:07 12:15 17:42 WBC 8.6 RBC 3.72 L Hgb 11.1 L Hct 32.9 L MCV 88.6 MCH 29.8 MCHC 33.7 RDW 15.4 H Plt Count 101 L MPV 9.0 Neut % (Auto) 77.5 H Lymph % (Auto) 11.6 L [place] % (Auto) 9.4 Eos % (Auto) 1.0 Baso % (Auto) 0.5 Neut # 6.6 Lymph # 1.0 [place] # 0.8 Eos # 0.1 Baso # 0.0 Neutrophils % (Manual) Band Neutrophils % Lymphocytes % (Manual) Monocytes % (Manual) Platelet Estimate Hypochromasia (manual) Poikilocytosis (manual Anisocytosis (manual) Puncture Site pCO2 pO2 HCO3 ABG pH ABG Total CO2 ABG O2 Saturation ABG Base Excess ABG Hemoglobin ABG Carboxyhemoglobin POC ABG HHb (Measured) ABG Methemoglobin Bhanu Test A-a O2 Difference Respiratory Index Hgb O2 Saturation Vent Mode Mechanical Rate FiO2 Tidal Volume PEEP Sodium Potassium Chloride Carbon Dioxide Anion Gap BUN Creatinine Est GFR ( Amer) Est GFR (Non-Af Amer) POC Glucose (mg/dL) 153 H 62 L Random Glucose Calcium Phosphorus Magnesium Total Bilirubin AST ALT Alkaline Phosphatase Total Protein Albumin Globulin Albumin/Globulin Ratio Ur Random Creatinine Ur Random Sodium Ur Random Potassium 05/29/17 05/29/17 05/29/17 18:15 20:05 22:22 WBC RBC Hgb Hct MCV MCH MCHC RDW Plt Count MPV Neut % (Auto) Lymph % (Auto) [place] % (Auto) Eos % (Auto) Baso % (Auto) Neut # Lymph # [place] # Eos # Baso # Neutrophils % (Manual) Band Neutrophils % Lymphocytes % (Manual) Monocytes % (Manual) Platelet Estimate Hypochromasia (manual) Poikilocytosis (manual Anisocytosis (manual) Puncture Site pCO2 pO2 HCO3 ABG pH ABG Total CO2 ABG O2 Saturation ABG Base Excess ABG Hemoglobin ABG Carboxyhemoglobin POC ABG HHb (Measured) ABG Methemoglobin Bhanu Test A-a O2 Difference Respiratory Index Hgb O2 Saturation Vent Mode Mechanical Rate FiO2 Tidal Volume PEEP Sodium Potassium Chloride Carbon Dioxide Anion Gap BUN Creatinine Est GFR ( Amer) Est GFR (Non-Af Amer) POC Glucose (mg/dL) 96 73 Random Glucose Calcium Phosphorus Magnesium Total Bilirubin AST ALT Alkaline Phosphatase Total Protein Albumin Globulin Albumin/Globulin Ratio Ur Random Creatinine 155.8 Ur Random Sodium 23 Ur Random Potassium 96.4 05/30/17 05/30/17 05/30/17 00:21 05:05 05:48 WBC RBC Hgb Hct MCV MCH MCHC RDW Plt Count MPV Neut % (Auto) Lymph % (Auto) [place] % (Auto) Eos % (Auto) Baso % (Auto) Neut # Lymph # [place] # Eos # Baso # Neutrophils % (Manual) Band Neutrophils % Lymphocytes % (Manual) Monocytes % (Manual) Platelet Estimate Hypochromasia (manual) Poikilocytosis (manual Anisocytosis (manual) Puncture Site Rb pCO2 28 L pO2 62 L HCO3 21.9 ABG pH 7.44 ABG Total CO2 19.9 L ABG O2 Saturation 93.5 L ABG Base Excess -3.6 L ABG Hemoglobin 15.3 ABG Carboxyhemoglobin 1.2 POC ABG HHb (Measured) 6.4 H ABG Methemoglobin 0.9 Bhanu Test Na A-a O2 Difference 260.0 Respiratory Index 4.2 Hgb O2 Saturation 91.5 L Vent Mode Prvc Mechanical Rate 16 FiO2 50.0 Tidal Volume 500 PEEP 5 Sodium Potassium Chloride Carbon Dioxide Anion Gap BUN Creatinine Est GFR ( Amer) Est GFR (Non-Af Amer) POC Glucose (mg/dL) 87 111 H Random Glucose Calcium Phosphorus Magnesium Total Bilirubin AST ALT Alkaline Phosphatase Total Protein Albumin Globulin Albumin/Globulin Ratio Ur Random Creatinine Ur Random Sodium Ur Random Potassium 05/30/17 05/30/17 05:59 05:59 WBC 6.1 RBC 3.42 L Hgb 10.3 L Hct 30.5 L MCV 89.2 MCH 30.2 MCHC 33.9 RDW 15.7 H Plt Count 65 L D MPV 9.1 Neut % (Auto) 82.1 H Lymph % (Auto) 9.5 L [place] % (Auto) 7.3 Eos % (Auto) 0.6 Baso % (Auto) 0.5 Neut # 5.0 Lymph # 0.6 L [place] # 0.4 Eos # 0.0 Baso # 0.0 Neutrophils % (Manual) 82 H Band Neutrophils % 4 H Lymphocytes % (Manual) 9 L Monocytes % (Manual) 5 Platelet Estimate Decreased L Hypochromasia (manual) Slight Poikilocytosis (manual Slight Anisocytosis (manual) Slight Puncture Site pCO2 pO2 HCO3 ABG pH ABG Total CO2 ABG O2 Saturation ABG Base Excess ABG Hemoglobin ABG Carboxyhemoglobin POC ABG HHb (Measured) ABG Methemoglobin Bhanu Test A-a O2 Difference Respiratory Index Hgb O2 Saturation Vent Mode Mechanical Rate FiO2 Tidal Volume PEEP Sodium 140 Potassium 4.5 Chloride 108 H Carbon Dioxide 22 Anion Gap 15 BUN 35 H Creatinine 1.5 Est GFR ( Amer) 56 Est GFR (Non-Af Amer) 46 POC Glucose (mg/dL) Random Glucose 94 Calcium 8.4 L Phosphorus 4.6 H Magnesium 1.9 Total Bilirubin 0.7 AST 1449 H ALT 1369 H Alkaline Phosphatase 59 Total Protein 6.1 L Albumin 3.1 L Globulin 2.9 Albumin/Globulin Ratio 1.1 Ur Random Creatinine Ur Random Sodium Ur Random Potassium EKG/Cardiology Studies: Cardiology / EKG Studies 05/30/17 09:19 EKG [ELECTROCARDIOGRAM] Routine Comment: Mode Of Transportation: PORTABLE Reason For Exam: CT EKG [ELECTROCARDIOGRAM] Stat Comment: Mode Of Transportation: Reason For Exam: s/p cath Fingerstick Blood Sugar Results: 111 Review of Systems - Review of Systems Systems not reviewed;Unavailable: Intubated Assessment/Plan - Assessment and Plan (Free Text) Assessment: 71 y/o male with HTN, DM, Hyperlipidemia brought in with chest pain s/p cardiac cath Today 05/30/17: Morning CXR showed left lung white out, patient was bagged and suctioned. F/u CXR showed improvement. IABP setting changed to 1:3. SVT during morning rounds and received Adenosine 3 doses, stopped dopamine and Levophed. Started phenylephrine IV and HR came back to 120-130s. Cardiovascular: CAD/CT Code Heart/HTN/Hyperlipidemia - s/p 2 stents, Transvenous pacemaker and Intra-aortic baloon pump - on 1:1 monitoring - Patient hypotensive in ER, on dopamine drip titratable - will monitor HR - 05/29 Echo: moderate concentric LVH. Hyptrophic cardiomyopathy. Systolc function mod-severly impaired. LVEF 28%. Transmitral dopper - Grade I abnormal relaxation. - 05/29 EKG: widened QRS, Adi 43 bpm - [employer] L[employer] Manager, Dr Gu, on board - proBNB [id number] - Aspirin 300mg rectal suppository daily - Plavix 75mg po daily - Rosuvastatin 20mg po hs - Lopressor 12.5 mg NG BID Pulmonary: Respiratory failure on Ventilator; left sided effusion - Intubated and sedated on Diprivan 1,000 mg - f/u daily Chest Xray - Duoneb 3ml INH RQ4 - Mucomyst 4ml INH RQ4 ID: Febrile - Zosyn 3.375 grm IV (started on 05/30) - vanco 1g once - f/u blood, urine, sputum cultures; f/u UA Endocrine: DM-insulin coverage Neuro: patient with sluggish pupillary reaction with spontaneous respirations Ativan 1 mg IV Q6 prn Prophylaxis: GI: pepcid 20mg iv - renal dosing DVT: plavix 75mg po daily - pt not able to tolerate oral medications today as pt with secretions Fluids: D5NS @ 40 cc/hr <GeorgiaSheng pritchett - Last Filed: 06/01/17 11:32> CCU Objective - Vital Signs / Intake & Output Intake and Output (Last 8hrs): Intake & Output 05/31/17 06/01/17 06/01/17 22:59 06:59 14:59 Intake Total 2467.7 2726.9 Output Total 150 20 Balance 2317.7 2706.9 Weight 187 lb 6.287 oz Intake: IV 776 698 Intake, IV Amount 1447.7 1385.9 Right Distal Port 420 360 Right Medial Port Femoral 194.4 195.5 Right Proximal Port 233.3 310.4 Femoral rt proximal sideport 600 520 Tube Feeding 40 10 Blood Product 204 583 Apheresis Platelets Acda 0 583 Lr Unit [id number] Apheresis Plts Acda Lr 204 3rd Con Unit [id number] Other 50 Apheresis Platelets Acda 50 Lr Unit [id number] Output: Gastric Amount 10 Stomach 10 Urine 140 20 Urethral (Sifuentes) 140 20 Other: # Bowel Movements 1 - Patient Studies Lab Studies: Microbiology Studies 05/30/17 16:10 Gram Stain - Final Trachasp Sputum Culture - Preliminary Gram Negative Theodore Gram Negative Theodore#2 05/30/17 12:45 Urine Culture - Final Urine,Sifuentes No Growth (<1,000 CFU/ML) 05/30/17 13:30 Blood Culture - Preliminary Blood-Venous NO GROWTH AFTER 24 HOURS 05/30/17 13:00 Blood Culture - Preliminary Blood-Venous NO GROWTH AFTER 24 HOURS Lab Studies 06/01/17 06/01/17 06/01/17 Range/Units 04:43 04:43 04:20 WBC 7.0 (4.8-10.8) K/uL RBC 2.52 L (4.40-5.90) Mil/uL Hgb 7.5 L D (12.0-18.0) g/dL Hct 23.4 L (35.0-51.0) % MCV 93.0 D (80.0-94.0) fL MCH 29.8 (27.0-31.0) pg MCHC 32.0 L (33.0-37.0) g/dL RDW 16.2 H (11.5-14.5) % Plt Count 17 L* D (130-400) K/uL MPV 7.3 (7.2-11.7) fL Neut % (Auto) 81.0 H (50.0-75.0) % Lymph % (Auto) 11.9 L (20.0-40.0) % [place] % (Auto) 4.9 (0.0-10.0) % Eos % (Auto) 2.0 (0.0-4.0) % Baso % (Auto) 0.2 (0.0-2.0) % Neut # 5.7 (1.8-7.0) K/uL Lymph # 0.8 L (1.0-4.3) K/uL [place] # 0.3 (0.0-0.8) K/uL Eos # 0.1 (0.0-0.7) K/uL Baso # 0.0 (0.0-0.2) K/uL Differential Comment PT (9.7-12.2) SECONDS INR Puncture Site R brach pCO2 41 (35-45) mm/Hg pO2 62 L (80-100) mm/Hg HCO3 8.7 L* (21-28) mmol/L ABG pH 6.98 L* (7.35-7.45) ABG Total CO2 11.0 L (22-28) mmol/L ABG O2 Saturation 84.9 L (95-98) % ABG Base Excess -20.5 L (-2.0-3.0) mmol/L ABG Hemoglobin 7.8 L (11.7-17.4) g/dL ABG Carboxyhemoglobin 1.6 H (0.5-1.5) % POC ABG HHb (Measured) 14.7 H (0.0-5.0) % ABG Methemoglobin 0.7 (0.0-3.0) % Bhanu Test Na A-a O2 Difference 600.0 mm/Hg Respiratory Index 9.7 Hgb O2 Saturation 82.9 L (95.0-98.0) % Vent Mode Prvc Mechanical Rate 24 FiO2 100.0 % Tidal Volume 450 PEEP 5 Crit Value Called To Dr ch Crit Value Called By Fariha vazquez rt Crit Value Read Back Y Blood Gas Notified Time 423 Sodium 137 (132-148) mmol/L Potassium 5.2 (3.6-5.2) mmol/L Chloride 100 (98-107) mmol/L Carbon Dioxide 14 L (22-30) mmol/L Anion Gap 28 H (10-20) BUN 58 H (9-20) mg/dL Creatinine 3.0 H (0.8-1.5) MG/DL Est GFR ( Amer) 25 Est GFR (Non-Af Amer) 21 POC Glucose (mg/dL) (65-110) mg/dL Random Glucose 260 H (75-110) mg/dL Calcium 9.3 (8.6-10.4) mg/dl Phosphorus 9.7 H (2.5-4.5) mg/dL Magnesium 2.7 H (1.6-2.3) mg/dL Total Bilirubin 2.2 H (0.2-1.3) mg/dL AST 9421 H (17-59) U/L ALT 5523 H (21-72) U/L Alkaline Phosphatase 93 (38-126) U/L Total Protein 5.1 L (6.3-8.3) g/dL Albumin 2.6 L (3.5-5.0) g/dL Globulin 2.5 (2.2-3.9) gm/dL Albumin/Globulin Ratio 1.0 (1.0-2.1) Ur Random Sodium mmol/L Ur Random Potassium mmol/L 06/01/17 05/31/17 05/31/17 Range/Units 04:15 23:44 22:26 WBC (4.8-10.8) K/uL RBC (4.40-5.90) Mil/uL Hgb (12.0-18.0) g/dL Hct (35.0-51.0) % MCV (80.0-94.0) fL MCH (27.0-31.0) pg MCHC (33.0-37.0) g/dL RDW (11.5-14.5) % Plt Count (130-400) K/uL MPV (7.2-11.7) fL Neut % (Auto) (50.0-75.0) % Lymph % (Auto) (20.0-40.0) % [place] % (Auto) (0.0-10.0) % Eos % (Auto) (0.0-4.0) % Baso % (Auto) (0.0-2.0) % Neut # (1.8-7.0) K/uL Lymph # (1.0-4.3) K/uL [place] # (0.0-0.8) K/uL Eos # (0.0-0.7) K/uL Baso # (0.0-0.2) K/uL Differential Comment PT (9.7-12.2) SECONDS INR Puncture Site pCO2 (35-45) mm/Hg pO2 (80-100) mm/Hg HCO3 (21-28) mmol/L ABG pH (7.35-7.45) ABG Total CO2 (22-28) mmol/L ABG O2 Saturation (95-98) % ABG Base Excess (-2.0-3.0) mmol/L ABG Hemoglobin (11.7-17.4) g/dL ABG Carboxyhemoglobin (0.5-1.5) % POC ABG HHb (Measured) (0.0-5.0) % ABG Methemoglobin (0.0-3.0) % Bhanu Test A-a O2 Difference mm/Hg Respiratory Index Hgb O2 Saturation (95.0-98.0) % Vent Mode Mechanical Rate FiO2 % Tidal Volume PEEP Crit Value Called To Crit Value Called By Crit Value Read Back Blood Gas Notified Time Sodium (132-148) mmol/L Potassium (3.6-5.2) mmol/L Chloride (98-107) mmol/L Carbon Dioxide (22-30) mmol/L Anion Gap (10-20) BUN (9-20) mg/dL Creatinine (0.8-1.5) MG/DL Est GFR ( Amer) Est GFR (Non-Af Amer) POC Glucose (mg/dL) 90 184 H (65-110) mg/dL Random Glucose (75-110) mg/dL Calcium (8.6-10.4) mg/dl Phosphorus (2.5-4.5) mg/dL Magnesium (1.6-2.3) mg/dL Total Bilirubin (0.2-1.3) mg/dL AST (17-59) U/L ALT (21-72) U/L Alkaline Phosphatase (38-126) U/L Total Protein (6.3-8.3) g/dL Albumin (3.5-5.0) g/dL Globulin (2.2-3.9) gm/dL Albumin/Globulin Ratio (1.0-2.1) Ur Random Sodium 11 mmol/L Ur Random Potassium 74.9 mmol/L 05/31/17 05/31/17 05/31/17 Range/Units 17:24 14:25 12:53 WBC (4.8-10.8) K/uL RBC (4.40-5.90) Mil/uL Hgb (12.0-18.0) g/dL Hct (35.0-51.0) % MCV (80.0-94.0) fL MCH (27.0-31.0) pg MCHC (33.0-37.0) g/dL RDW (11.5-14.5) % Plt Count (130-400) K/uL MPV (7.2-11.7) fL Neut % (Auto) (50.0-75.0) % Lymph % (Auto) (20.0-40.0) % [place] % (Auto) (0.0-10.0) % Eos % (Auto) (0.0-4.0) % Baso % (Auto) (0.0-2.0) % Neut # (1.8-7.0) K/uL Lymph # (1.0-4.3) K/uL [place] # (0.0-0.8) K/uL Eos # (0.0-0.7) K/uL Baso # (0.0-0.2) K/uL Differential Comment PT 19.2 H D (9.7-12.2) SECONDS INR 1.7 D Puncture Site pCO2 (35-45) mm/Hg pO2 (80-100) mm/Hg HCO3 (21-28) mmol/L ABG pH (7.35-7.45) ABG Total CO2 (22-28) mmol/L ABG O2 Saturation (95-98) % ABG Base Excess (-2.0-3.0) mmol/L ABG Hemoglobin (11.7-17.4) g/dL ABG Carboxyhemoglobin (0.5-1.5) % POC ABG HHb (Measured) (0.0-5.0) % ABG Methemoglobin (0.0-3.0) % Bhanu Test A-a O2 Difference mm/Hg Respiratory Index Hgb O2 Saturation (95.0-98.0) % Vent Mode Mechanical Rate FiO2 % Tidal Volume PEEP Crit Value Called To Crit Value Called By Crit Value Read Back Blood Gas Notified Time Sodium (132-148) mmol/L Potassium (3.6-5.2) mmol/L Chloride (98-107) mmol/L Carbon Dioxide (22-30) mmol/L Anion Gap (10-20) BUN (9-20) mg/dL Creatinine (0.8-1.5) MG/DL Est GFR ( Amer) Est GFR (Non-Af Amer) POC Glucose (mg/dL) 286 H 271 H (65-110) mg/dL Random Glucose (75-110) mg/dL Calcium (8.6-10.4) mg/dl Phosphorus (2.5-4.5) mg/dL Magnesium (1.6-2.3) mg/dL Total Bilirubin (0.2-1.3) mg/dL AST (17-59) U/L ALT (21-72) U/L Alkaline Phosphatase (38-126) U/L Total Protein (6.3-8.3) g/dL Albumin (3.5-5.0) g/dL Globulin (2.2-3.9) gm/dL Albumin/Globulin Ratio (1.0-2.1) Ur Random Sodium mmol/L Ur Random Potassium mmol/L 05/31/17 Range/Units 06:18 WBC (4.8-10.8) K/uL RBC (4.40-5.90) Mil/uL Hgb (12.0-18.0) g/dL Hct (35.0-51.0) % MCV (80.0-94.0) fL MCH (27.0-31.0) pg MCHC (33.0-37.0) g/dL RDW (11.5-14.5) % Plt Count (130-400) K/uL MPV (7.2-11.7) fL Neut % (Auto) (50.0-75.0) % Lymph % (Auto) (20.0-40.0) % [place] % (Auto) (0.0-10.0) % Eos % (Auto) (0.0-4.0) % Baso % (Auto) (0.0-2.0) % Neut # (1.8-7.0) K/uL Lymph # (1.0-4.3) K/uL [place] # (0.0-0.8) K/uL Eos # (0.0-0.7) K/uL Baso # (0.0-0.2) K/uL Differential Comment PT (9.7-12.2) SECONDS INR Puncture Site pCO2 (35-45) mm/Hg pO2 (80-100) mm/Hg HCO3 (21-28) mmol/L ABG pH (7.35-7.45) ABG Total CO2 (22-28) mmol/L ABG O2 Saturation (95-98) % ABG Base Excess (-2.0-3.0) mmol/L ABG Hemoglobin (11.7-17.4) g/dL ABG Carboxyhemoglobin (0.5-1.5) % POC ABG HHb (Measured) (0.0-5.0) % ABG Methemoglobin (0.0-3.0) % Bhanu Test A-a O2 Difference mm/Hg Respiratory Index Hgb O2 Saturation (95.0-98.0) % Vent Mode Mechanical Rate FiO2 % Tidal Volume PEEP Crit Value Called To Crit Value Called By Crit Value Read Back Blood Gas Notified Time Sodium (132-148) mmol/L Potassium (3.6-5.2) mmol/L Chloride (98-107) mmol/L Carbon Dioxide (22-30) mmol/L Anion Gap (10-20) BUN (9-20) mg/dL Creatinine (0.8-1.5) MG/DL Est GFR ( Amer) Est GFR (Non-Af Amer) POC Glucose (mg/dL) (65-110) mg/dL Random Glucose (75-110) mg/dL Calcium (8.6-10.4) mg/dl Phosphorus (2.5-4.5) mg/dL Magnesium (1.6-2.3) mg/dL Total Bilirubin (0.2-1.3) mg/dL AST (17-59) U/L ALT (21-72) U/L Alkaline Phosphatase (38-126) U/L Total Protein (6.3-8.3) g/dL Albumin (3.5-5.0) g/dL Globulin (2.2-3.9) gm/dL Albumin/Globulin Ratio (1.0-2.1) Ur Random Sodium mmol/L Ur Random Potassium mmol/L Laboratory Results - last 24 hr 05/31/17 05/31/17 05/31/17 06:18 12:53 14:25 WBC RBC Hgb Hct MCV MCH MCHC RDW Plt Count MPV Neut % (Auto) Lymph % (Auto) [place] % (Auto) Eos % (Auto) Baso % (Auto) Neut # Lymph # [place] # Eos # Baso # Differential Comment PT 19.2 H D INR 1.7 D Puncture Site pCO2 pO2 HCO3 ABG pH ABG Total CO2 ABG O2 Saturation ABG Base Excess ABG Hemoglobin ABG Carboxyhemoglobin POC ABG HHb (Measured) ABG Methemoglobin Bhanu Test A-a O2 Difference Respiratory Index Hgb O2 Saturation Vent Mode Mechanical Rate FiO2 Tidal Volume PEEP Crit Value Called To Crit Value Called By Crit Value Read Back Blood Gas Notified Time Sodium Potassium Chloride Carbon Dioxide Anion Gap BUN Creatinine Est GFR ( Amer) Est GFR (Non-Af Amer) POC Glucose (mg/dL) 271 H Random Glucose Calcium Phosphorus Magnesium Total Bilirubin AST ALT Alkaline Phosphatase Total Protein Albumin Globulin Albumin/Globulin Ratio Ur Random Sodium Ur Random Potassium 05/31/17 05/31/17 05/31/17 17:24 22:26 23:44 WBC RBC Hgb Hct MCV MCH MCHC RDW Plt Count MPV Neut % (Auto) Lymph % (Auto) [place] % (Auto) Eos % (Auto) Baso % (Auto) Neut # Lymph # [place] # Eos # Baso # Differential Comment PT INR Puncture Site pCO2 pO2 HCO3 ABG pH ABG Total CO2 ABG O2 Saturation ABG Base Excess ABG Hemoglobin ABG Carboxyhemoglobin POC ABG HHb (Measured) ABG Methemoglobin Bhanu Test A-a O2 Difference Respiratory Index Hgb O2 Saturation Vent Mode Mechanical Rate FiO2 Tidal Volume PEEP Crit Value Called To Crit Value Called By Crit Value Read Back Blood Gas Notified Time Sodium Potassium Chloride Carbon Dioxide Anion Gap BUN Creatinine Est GFR ( Amer) Est GFR (Non-Af Amer) POC Glucose (mg/dL) 286 H 184 H Random Glucose Calcium Phosphorus Magnesium Total Bilirubin AST ALT Alkaline Phosphatase Total Protein Albumin Globulin Albumin/Globulin Ratio Ur Random Sodium 11 Ur Random Potassium 74.9 06/01/17 06/01/17 06/01/17 04:15 04:20 04:43 WBC 7.0 RBC 2.52 L Hgb 7.5 L D Hct 23.4 L MCV 93.0 D MCH 29.8 MCHC 32.0 L RDW 16.2 H Plt Count 17 L* D MPV 7.3 Neut % (Auto) 81.0 H Lymph % (Auto) 11.9 L [place] % (Auto) 4.9 Eos % (Auto) 2.0 Baso % (Auto) 0.2 Neut # 5.7 Lymph # 0.8 L [place] # 0.3 Eos # 0.1 Baso # 0.0 Differential Comment PT INR Puncture Site R brach pCO2 41 pO2 62 L HCO3 8.7 L* ABG pH 6.98 L* ABG Total CO2 11.0 L ABG O2 Saturation 84.9 L ABG Base Excess -20.5 L ABG Hemoglobin 7.8 L ABG Carboxyhemoglobin 1.6 H POC ABG HHb (Measured) 14.7 H ABG Methemoglobin 0.7 Bhanu Test Na A-a O2 Difference 600.0 Respiratory Index 9.7 Hgb O2 Saturation 82.9 L Vent Mode Prvc Mechanical Rate 24 FiO2 100.0 Tidal Volume 450 PEEP 5 Crit Value Called To Dr ch Crit Value Called By Fariha vazquez rt Crit Value Read Back Y Blood Gas Notified Time 423 Sodium Potassium Chloride Carbon Dioxide Anion Gap BUN Creatinine Est GFR ( Amer) Est GFR (Non-Af Amer) POC Glucose (mg/dL) 90 Random Glucose Calcium Phosphorus Magnesium Total Bilirubin AST ALT Alkaline Phosphatase Total Protein Albumin Globulin Albumin/Globulin Ratio Ur Random Sodium Ur Random Potassium 06/01/17 04:43 WBC RBC Hgb Hct MCV MCH MCHC RDW Plt Count MPV Neut % (Auto) Lymph % (Auto) [place] % (Auto) Eos % (Auto) Baso % (Auto) Neut # Lymph # [place] # Eos # Baso # Differential Comment PT INR Puncture Site pCO2 pO2 HCO3 ABG pH ABG Total CO2 ABG O2 Saturation ABG Base Excess ABG Hemoglobin ABG Carboxyhemoglobin POC ABG HHb (Measured) ABG Methemoglobin Bhanu Test A-a O2 Difference Respiratory Index Hgb O2 Saturation Vent Mode Mechanical Rate FiO2 Tidal Volume PEEP Crit Value Called To Crit Value Called By Crit Value Read Back Blood Gas Notified Time Sodium 137 Potassium 5.2 Chloride 100 Carbon Dioxide 14 L Anion Gap 28 H BUN 58 H Creatinine 3.0 H Est GFR ( Amer) 25 Est GFR (Non-Af Amer) 21 POC Glucose (mg/dL) Random Glucose 260 H Calcium 9.3 Phosphorus 9.7 H Magnesium 2.7 H Total Bilirubin 2.2 H AST 9421 H ALT 5523 H Alkaline Phosphatase 93 Total Protein 5.1 L Albumin 2.6 L Globulin 2.5 Albumin/Globulin Ratio 1.0 Ur Random Sodium Ur Random Potassium Attending/Attestation - Attestation I have personally seen and examined this patient.: Yes I have fully participated in the care of the patient.: Yes I have reviewed all pertinent clinical information: Yes Notes (Text): 05/30/17 Today: May The patient was Seen and examined by me at the bedside during ICU round, Medical records reviewed and Management issues were discussed and formulated with the house staff. I have reviewed all the relevant clinical, laboratory, hemodynamic, radiographic data and medications Pain issues, skin care, head of the bed elevation, glycemic control were addressed. I concur with resident's assessment and plan of care as transcribed in Dr. Veliz note. Critically sick patient with acute respiratory failure, cardiogenic shock and multi-organ failure Sedated, orally intubated and mechanically ventilated. PRVC FiO2 50% PEEP5. Resp nonlabored spontaneous resp noted. Sinus rhythm VR80 Skin warm dry. Patient in cardiogenic shock from Acute CT, Acute pulmonary edema, requiring pressors and IABP support Continue cardiac medications - Aspirin 300mg rectal suppository daily - Plavix 75mg po daily - Rosuvastatin 20mg po hs - Lopressor 12.5 mg NG BID - Amiodarine 900 mg IV daily - Crestor 20 mg PO HS S/p lung collapse, requiring Aggressive pulmonary toilet, chest PT, suctioning and BD Nebs Repeat CXR with improved areation Fever spike, On AV Zosyn, plus 1 gm IV Vancomycin given, Ibarra cultures including Tracheal aspirate sent DVT: SCD, Plavix GI: Pepcid 20 mg IV daily Code status: Full Total Critical Care Time spent 45 minutes The documented time is cumulative and includes review of patient data/exams/labs /chart review and examination of the patient on rounds and throughout the day; time is exclusive of any procedures or teaching time. 06/01/17 11:31
[2017-05-30] MEDS: Phenylephrine 30 MG in Dextrose 5% In Water 250 ML IV PRN ×3 (12:16→20:36)
[2017-05-30] MEDS: Acetylcysteine 20% Inhal Soln (4ml) INH SCH ×3 (13:00→19:43)
--- NOTE | 2017-05-30 13:11 | CP.PCM.PN ---
Subjective - Date & Time of Evaluation Date of Evaluation: 05/30/17 Time of Evaluation: 13:08 - Subjective Subjective: left lung whiteout on cxray 2' to mucus plugging BP stable on minimal dose of levophed and dopamine on IABP - changed to 1:3 moving around / agitated - kept on diprivan for sedation Objective - Vital Signs/Intake and Output Vital Signs (last 24 hours): Temp Pulse Resp BP Pulse Ox 98.4 F 150 H 32 H 99/62 L 98 05/30/17 09:00 05/30/17 12:16 05/30/17 12:16 05/30/17 12:16 05/30/17 12:16 Intake and Output: 05/30/17 05/30/17 06:59 18:59 Intake Total 1163.4 824.7 Output Total 375 355 Balance 788.4 469.7 - Medications Medications: Current Medications Acetylcysteine (Acetylcysteine 20%) 4 ml INH RQ4 ZULMA Albuterol/Ipratropium (Duoneb 3 Mg/0.5 Mg (3 Ml) Ud) 3 ml INH RQ4 ZULMA Aspirin (Aspirin Supp) 300 mg [place] DAILY [facility] Last Admin: 05/30/17 10:12 Dose: 300 mg Clopidogrel Bisulfate (Plavix) 75 mg PO DAILY [facility] Last Admin: 05/30/17 09:43 Dose: 75 mg Famotidine (Pepcid) 20 mg IVP DAILY [facility] Last Admin: 05/30/17 09:43 Dose: 20 mg Propofol (Diprivan) 1,000 mg in 100 mls @ 2.4 mls/hr IV .Q24H PRN; Protocol; 5 MCG/KG/MIN PRN Reason: TITRATE PER MD ORDER Last Admin: 05/30/17 10:48 Dose: 35 mcg/kg/min, 16.8 mls/hr Piperacillin Sod/Tazobactam (Sod 3.375 gm/ Sodium Chloride) 100 mls @ 200 mls/ hr IVPB Q6H [facility] Last Admin: 05/30/17 09:43 Dose: 200 mls/hr Dextrose/Sodium Chloride (Dextrose 5%/0.9% Ns 1000 Ml) 1,000 mls @ 60 mls/hr IV .[id number] [facility] Last Admin: 05/30/17 11:19 Dose: 60 mls/hr Phenylephrine HCl 30 mg/ (Dextrose) 253 mls @ 10.12 mls/hr IV .Q24H PRN; Protocol; 20 MCG/MIN PRN Reason: TITRATE PER MD ORDER Last Titration: 05/30/17 12:18 Dose: 80 mcg/min, 40.48 mls/hr Vancomycin HCl 1 gm/ Sodium (Chloride) 250 mls @ 166.7 mls/hr IVPB ONCE ONE Stop: 05/30/17 15:29 Insulin Human Regular (Novolin R) 0 unit SC Q6 ZULMA PRN Reason: Protocol Last Admin: 05/30/17 12:36 Dose: Not Given Lorazepam (Ativan) 1 mg IVP Q6H PRN PRN Reason: Anxiety Last Admin: 05/29/17 23:12 Dose: 1 mg Morphine Sulfate (Morphine) 2 mg IVP Q4 PRN PRN Reason: Pain, moderate (4-7) Last Admin: 05/30/17 04:29 Dose: 2 mg Rosuvastatin Calcium (Crestor) 20 mg PO HS ZULMA Last Admin: 05/29/17 22:00 Dose: Not Given - Labs Labs: 05/30/17 05:59 05/30/17 05:59 PT 10.9 SECONDS (9.7-12.2) 05/28/17 18:02 INR 1.0 05/28/17 18:02 APTT 18 SECONDS (21-34) L 05/28/17 18:02 - Constitutional Appears: Toxic - Eye Exam Pupil Exam: PERRL - ENT Exam ENT Exam: Mucous Membranes Moist Additional comments: ETT tube in place - Neck Exam Neck Exam: Normal Inspection - Respiratory Exam Additional comments: left lung decreased BS - Cardiovascular Exam Cardiovascular Exam: Tachycardia, +S1, +S2, Murmur - GI/Abdominal Exam GI & Abdominal Exam: Soft, Diminished Bowel Sounds - Neurological Exam Neurological Exam: Altered Assessment and Plan (1) Cardiogenic shock Assessment & Plan: weaning off pressors will wean off levophed and then dopamine BP stable IABP changed to 1:3 will remove it later today Status: Acute (2) Acute MS Assessment & Plan: on DAPT introduce low dose metoprolol 12.5mg bid later today shock liver - hold statins Status: Acute (3) S/P angioplasty Assessment & Plan: stable no ischemic changes on EKG Echo - EF 20-25% will add RAAS modulators once extubated and BP stable Status: Acute (4) Shock liver Assessment & Plan: hold statins Status: Acute
[2017-05-30 13:28] LABS: RBC URINE 80 /hpf (0-3); URINE BILIRUBIN NEGATIVE (NEGATIVE); URINE BLOOD 2+ (NEGATIVE); URINE COLOR Amber (YELLOW); URINE GLUCOSE (UA) 1+ mg/dL (Normal); URINE KETONE TRACE mg/dL (NEGATIVE); URINE LEUKOCYTE ESTERASE NEG Leu/uL (Negative); URINE PROTEIN 2+ mg/dL (NEGATIVE); URINE UROBILINOGEN NORMAL mg/dL (0.2-1.0); WBC URINE 8 /hpf (0-5)
--- NOTE | 2017-05-30 15:44 | RAD ---
PROCEDURE: CHEST RADIOGRAPH, 1 VIEW Technique: Single view portable semi erect @ 13:05. HISTORY: follow up COMPARISON: 05/30/2017 study performed 09:24. FINDINGS: LUNGS: Interval increase in consolidative changes left marge thorax. PLEURA: No pneumothorax or pleural fluid seen. CARDIOVASCULAR: Normal. OSSEOUS STRUCTURES: No significant abnormalities. VISUALIZED UPPER ABDOMEN: Normal. OTHER FINDINGS: Stable position of support apparatus including nasogastric tube and endotracheal tube. IMPRESSION: Increasing haziness to the left hemithorax likely progressive consolidative change/atelectasis left lung. A component of pleural effusion also likely.
[2017-05-31] MEDS: (Novolin R) Insulin Human Regular 100 units/ml vial SC SCH ×5 (00:47→18:09)
[2017-05-31] MEDS: Phenylephrine 30 MG in Dextrose 5% In Water 250 ML IV PRN ×4 (02:14→21:23)
[2017-05-31] MEDS: Albuterol-Ipratrop 3 mg / 0.5 (3 ml) UD INH SCH ×3 (03:26→07:34)
[2017-05-31] MEDS: Acetylcysteine 20% Inhal Soln (4ml) INH SCH ×4 (03:26→13:43)
[2017-05-31] MEDS: Dextrose 5%/0.9% NS 1,000 ML IV SCH ×3 (04:23→19:07)
[2017-05-31] MEDS: Piperacillin/Tazobact 3.375 GM in Sodium Chloride 100 ML IVPB SCH ×2 (04:24→09:57)
[2017-05-31] MEDS: Propofol 10 mg/ml 1,000 MG/100 ML VIAL IV PRN (04:34)
[2017-05-31 05:19] LABS: ABG MECHANICAL RATE 16; ARTERIAL BLOOD GAS MODE PRVC; ARTERIAL BLOOD HGB O2 SAT 97.2 % (95.0-98.0); ATERIAL BLOOD GAS PEEP 5; DRAW SITE RB; HHB 0.9 % (0.0-5.0); METHEMOGLOBIN 0.8 % (0.0-3.0)
[2017-05-31 06:37] LABS: BASO % 0.4 % (0.0-2.0); EOS # 0.1 K/uL (0.0-0.7); EOS % 1.3 % (0.0-4.0); LYMPH # 0.8 K/uL (1.0-4.3); LYMPH % 13.6 % (20.0-40.0); MEAN CELL VOLUME 89.9 fL (80.0-94.0); MEAN CORPUSCULAR HEMOGLOBIN 30.3 pg (27.0-31.0); MEAN CORPUSCULAR HGB CONC 33.8 g/dL (33.0-37.0); MEAN PLATELET VOLUME 9.2 fL (7.2-11.7); MONO # 0.3 K/uL (0.0-0.8); MONO % 4.9 % (0.0-10.0); NRBC % 0.2 % (0.0-2.0); RED CELL DISTRIBUTION WIDTH 15.6 % (11.5-14.5); WHITE BLOOD COUNT 5.6 K/uL (4.8-10.8)
[2017-05-31 06:39] LABS: POTASSIUM 4.6 mmol/L (3.6-5.2)
[2017-05-31 06:41] LABS: BILIRUBIN,TOTAL 0.7 mg/dL (0.2-1.3); TOTAL PROTEIN 5.8 g/dL (6.3-8.3)
[2017-05-31 06:42] LABS: CALCIUM 7.5 mg/dl (8.6-10.4); MAGNESIUM 2.4 mg/dL (1.6-2.3); PHOSPHOROUS 4.9 mg/dL (2.5-4.5)
[2017-05-31] MEDS: Dexmedetomidine Hydrochloride 200 MCG in Sodium Chloride 0.9% 48 ML IV PRN ×7 (08:36→21:22)
--- NOTE | 2017-05-31 08:59 | CP.PCM.PN ---
Subjective - Date & Time of Evaluation Date of Evaluation: 05/31/17 Time of Evaluation: 08:59 - Subjective Subjective: pt is seen and examined, follow up consult is dictated #[id number] 1.ronald 2.met.acidosis 3.abnormal lft's check urine lytes Objective - Vital Signs/Intake and Output Vital Signs (last 24 hours): Temp Pulse Resp BP Pulse Ox 99 F 170 H 31 H 121/90 100 05/31/17 04:00 05/31/17 07:49 05/31/17 07:08 05/31/17 07:49 05/31/17 08:01 Intake and Output: 05/31/17 05/31/17 06:59 18:59 Intake Total 1890.1 112 Output Total 470 40 Balance 1420.1 72 - Medications Medications: Current Medications Acetylcysteine (Acetylcysteine 20%) 4 ml INH RQ4 [facility] Last Admin: 05/31/17 07:36 Dose: 4 ml Aspirin (Aspirin Supp) 300 mg [place] DAILY [facility] Last Admin: 05/30/17 10:12 Dose: 300 mg Clopidogrel Bisulfate (Plavix) 75 mg PO DAILY [facility] Last Admin: 05/30/17 09:43 Dose: 75 mg Famotidine (Pepcid) 20 mg IVP DAILY [facility] Last Admin: 05/30/17 09:43 Dose: 20 mg Propofol (Diprivan) 1,000 mg in 100 mls @ 2.4 mls/hr IV .Q24H PRN; Protocol; 5 MCG/KG/MIN PRN Reason: TITRATE PER MD ORDER Last Admin: 05/31/17 04:34 Dose: 25 mcg/kg/min, 12 mls/hr Piperacillin Sod/Tazobactam (Sod 3.375 gm/ Sodium Chloride) 100 mls @ 200 mls/ hr IVPB Q6H [facility] Last Admin: 05/31/17 04:24 Dose: 200 mls/hr Dextrose/Sodium Chloride (Dextrose 5%/0.9% Ns 1000 Ml) 1,000 mls @ 60 mls/hr IV .[id number] [facility] Last Admin: 05/31/17 04:23 Dose: Not Given Phenylephrine HCl 30 mg/ (Dextrose) 253 mls @ 10.12 mls/hr IV .Q24H PRN; Protocol; 20 MCG/MIN PRN Reason: TITRATE PER MD ORDER Last Admin: 05/31/17 02:14 Dose: 150 mcg/min, 75.9 mls/hr Amiodarone HCl 900 mg/ (Dextrose) 500 mls @ 16.66 mls/hr IV .Q24H ZULMA; 0.5 MG/ MIN PRN Reason: Protocol Stop: 05/31/17 18:30 Dexmedetomidine HCl 200 mcg/ (Sodium Chloride) 50 mls @ 3.96 mls/hr IV TITR PRN ; Protocol; 0.2 MCG/KG/HR PRN Reason: Agitation Last Admin: 05/31/17 08:36 Dose: 0.2 mcg/kg/hr, 3.96 mls/hr Insulin Human Regular (Novolin R) 0 unit SC Q6 ZULMA PRN Reason: Protocol Last Admin: 05/31/17 05:34 Dose: 8 unit Lorazepam (Ativan) 1 mg IVP Q6H PRN PRN Reason: Anxiety Last Admin: 05/29/17 23:12 Dose: 1 mg Metoprolol Tartrate (Lopressor) 12.5 mg NG BID ZULMA Last Admin: 05/30/17 17:14 Dose: Not Given Morphine Sulfate (Morphine) 2 mg IVP Q4 PRN PRN Reason: Pain, moderate (4-7) Last Admin: 05/30/17 04:29 Dose: 2 mg Rosuvastatin Calcium (Crestor) 20 mg PO HS ZULMA Last Admin: 05/30/17 22:17 Dose: 20 mg - Labs Labs: 05/31/17 06:18 05/31/17 06:16 PT 10.9 SECONDS (9.7-12.2) 05/28/17 18:02 INR 1.0 05/28/17 18:02 APTT 18 SECONDS (21-34) L 05/28/17 18:02
--- NOTE | 2017-05-31 09:06 | CP.CCUPN ---
<Perfecto Veliz Lazaro - Last Filed: 05/31/17 17:34> CCU Subjective - Physician Review Subjective (Free Text): Patient seen and examined at bedside. He is intubated and sedated therefore subjective history was unable to be obtained because of current status. No acute events overnight although he occasionally becomes agitated moving this extremities when his sedation wears off. Medical records, labs and imaging were reviewed. Case was discussed with house staff. 05/31/17 17:34 CCU Objective - Vital Signs / Intake & Output Vital Signs (Last 4 hours): Vital Signs Pulse Resp BP Pulse Ox 05/31/17 08:01 100 05/31/17 07:49 170 H 121/90 05/31/17 07:43 140 H 116/93 H 05/31/17 07:08 122 H 31 H 111/84 100 05/31/17 07:00 125 H 05/31/17 06:08 117/84 05/31/17 06:00 116 H 28 H 100 05/31/17 05:09 107 H 31 H 104/67 100 Intake and Output (Last 8hrs): Intake & Output 05/30/17 05/31/17 05/31/17 22:59 06:59 14:59 Intake Total 1691.1 1349 112 Output Total 250 375 40 Balance 1441.1 974 72 Weight 175 lb 175 lb 0.012 oz Intake: IV 395 353 Intake, IV Amount 1296.1 996 112 Right Distal Port 650 550 60 Right Medial Port Femoral 108.6 96 12 rt proximal sideport 537.5 350 40 Output: Urine 250 375 40 Urethral (Sifuentes) 250 375 40 - Physical Exam Head: Positive for: Atraumatic, Normocephalic - Medications Active Medications: Active Medications Generic Name Dose Route Start Last Admin Trade Name Freq PRN Reason Stop Dose Admin Acetylcysteine 4 ml 05/30/17 12:00 05/31/17 07:36 Acetylcysteine 20% INH 4 ml RQ4 ZULMA Administration Aspirin 300 mg 05/29/17 12:00 05/30/17 10:12 Aspirin Supp WV 300 mg DAILY ZULMA Administration Clopidogrel Bisulfate 75 mg 05/29/17 10:00 05/30/17 09:43 Plavix PO 75 mg DAILY ZULMA Administration Famotidine 20 mg 05/29/17 10:35 05/30/17 09:43 Pepcid IVP 20 mg DAILY ZULMA Administration Propofol 1,000 mg in 100 mls @ 2.4 mls/hr 05/29/17 01:00 05/31/17 04:34 Diprivan IV 25 mcg/kg/min .Q24H PRN 12 mls/hr TITRATE PER MD ORDER Administration Protocol 5 MCG/KG/MIN Piperacillin Sod/Tazobactam 100 mls @ 200 mls/hr 05/29/17 22:30 05/31/17 04: 24 Sod 3.375 gm/ Sodium Chloride IVPB 200 mls/hr Q6H ZULMA Administration Dextrose/Sodium Chloride 1,000 mls @ 60 mls/hr 05/30/17 09:45 05/31/17 04:23 Dextrose 5%/0.9% Ns 1000 Ml IV Not Given .[id number] ZULMA Phenylephrine HCl 30 mg/ 253 mls @ 10.12 mls/hr 05/30/17 11:20 05/31/17 02:14 Dextrose IV 150 mcg/min .Q24H PRN 75.9 mls/hr TITRATE PER MD ORDER Administration Protocol 20 MCG/MIN Amiodarone HCl 900 mg/ 500 mls @ 16.66 mls/hr 05/30/17 22:30 Dextrose IV 05/31/17 18:30 .Q24H ZULMA Protocol 0.5 MG/MIN Dexmedetomidine HCl 200 mcg/ 50 mls @ 3.96 mls/hr 05/31/17 08:09 05/31/17 08: 36 Sodium Chloride IV 0.2 mcg/kg/hr TITR PRN 3.96 mls/hr Agitation Administration Protocol 0.2 MCG/KG/HR Insulin Human Regular 0 unit 05/29/17 00:00 05/31/17 05:34 Novolin R SC 8 unit Q6 ZULMA Administration Protocol Lorazepam 1 mg 05/29/17 22:41 05/29/17 23:12 Ativan IVP 1 mg Q6H PRN Administration Anxiety Metoprolol Tartrate 12.5 mg 05/30/17 15:45 05/30/17 17:14 Lopressor NG Not Given BID ZULMA Morphine Sulfate 2 mg 05/29/17 22:41 05/30/17 04:29 Morphine IVP 2 mg Q4 PRN Administration Pain, moderate (4-7) Rosuvastatin Calcium 20 mg 05/29/17 22:00 05/30/17 22:17 Crestor PO 20 mg HS ZULMA Administration - Patient Studies Lab Studies: Microbiology Studies 05/30/17 16:10 Gram Stain - Final Trachasp 05/29/17 Unknown MRSA Culture (Admit) - Final Naris MRSA NOT DETECTED Lab Studies 05/31/17 05/31/17 05/31/17 Range/Units 06:18 06:16 05:24 WBC 5.6 (4.8-10.8) K/uL RBC 3.22 L (4.40-5.90) Mil/uL Hgb 9.8 L (12.0-18.0) g/dL Hct 29.0 L (35.0-51.0) % MCV 89.9 (80.0-94.0) fL MCH 30.3 (27.0-31.0) pg MCHC 33.8 (33.0-37.0) g/dL RDW 15.6 H (11.5-14.5) % Plt Count 25 L* D (130-400) K/uL MPV 9.2 (7.2-11.7) fL Neut % (Auto) 79.8 H (50.0-75.0) % Lymph % (Auto) 13.6 L (20.0-40.0) % Marin % (Auto) 4.9 (0.0-10.0) % Eos % (Auto) 1.3 (0.0-4.0) % Baso % (Auto) 0.4 (0.0-2.0) % Neut # 4.5 (1.8-7.0) K/uL Lymph # 0.8 L (1.0-4.3) K/uL Marin # 0.3 (0.0-0.8) K/uL Eos # 0.1 (0.0-0.7) K/uL Baso # 0.0 (0.0-0.2) K/uL Puncture Site pCO2 (35-45) mm/Hg pO2 (80-100) mm/Hg HCO3 (21-28) mmol/L ABG pH (7.35-7.45) ABG Total CO2 (22-28) mmol/L ABG O2 Saturation (95-98) % ABG Base Excess (-2.0-3.0) mmol/L ABG Hemoglobin (11.7-17.4) g/dL ABG Carboxyhemoglobin (0.5-1.5) % POC ABG HHb (Measured) (0.0-5.0) % ABG Methemoglobin (0.0-3.0) % Bhanu Test A-a O2 Difference mm/Hg Respiratory Index Hgb O2 Saturation (95.0-98.0) % Vent Mode Mechanical Rate FiO2 % Tidal Volume PEEP Sodium 133 (132-148) mmol/L Potassium 4.6 (3.6-5.2) mmol/L Chloride 106 (98-107) mmol/L Carbon Dioxide 14 L (22-30) mmol/L Anion Gap 18 (10-20) BUN 52 H (9-20) mg/dL Creatinine 1.6 H (0.8-1.5) MG/DL Est GFR ( Amer) 52 Est GFR (Non-Af Amer) 43 POC Glucose (mg/dL) 367 H (65-110) mg/dL Random Glucose 358 H (75-110) mg/dL Calcium 7.5 L (8.6-10.4) mg/dl Phosphorus 4.9 H (2.5-4.5) mg/dL Magnesium 2.4 H (1.6-2.3) mg/dL Total Bilirubin 0.7 (0.2-1.3) mg/dL AST 2861 H (17-59) U/L ALT 2685 H (21-72) U/L Alkaline Phosphatase 96 (38-126) U/L Total Protein 5.8 L (6.3-8.3) g/dL Albumin 2.9 L (3.5-5.0) g/dL Globulin 2.9 (2.2-3.9) gm/dL Albumin/Globulin Ratio 1.0 (1.0-2.1) Urine Color (YELLOW) Urine Clarity (Clear) Urine pH (5.0-8.0) Ur Specific Wishon (1.003-1.030) Urine Protein (NEGATIVE) mg/dL Urine Glucose (UA) (Normal) mg/dL Urine Ketones (NEGATIVE) mg/dL Urine Blood (NEGATIVE) Urine Nitrate (NEGATIVE) Urine Bilirubin (NEGATIVE) Urine Urobilinogen (0.2-1.0) mg/dL Ur Leukocyte Esterase (Negative) Kumar/uL Urine WBC (Auto) (0-5) /hpf Urine RBC (Auto) (0-3) /hpf Ur Squamous Epith Cells (0-5) /hpf Amorphous Sediment (<OCC) /ul 05/31/17 05/30/17 05/30/17 Range/Units 05:11 23:46 17:47 WBC (4.8-10.8) K/uL RBC (4.40-5.90) Mil/uL Hgb (12.0-18.0) g/dL Hct (35.0-51.0) % MCV (80.0-94.0) fL MCH (27.0-31.0) pg MCHC (33.0-37.0) g/dL RDW (11.5-14.5) % Plt Count (130-400) K/uL MPV (7.2-11.7) fL Neut % (Auto) (50.0-75.0) % Lymph % (Auto) (20.0-40.0) % Marin % (Auto) (0.0-10.0) % Eos % (Auto) (0.0-4.0) % Baso % (Auto) (0.0-2.0) % Neut # (1.8-7.0) K/uL Lymph # (1.0-4.3) K/uL Marin # (0.0-0.8) K/uL Eos # (0.0-0.7) K/uL Baso # (0.0-0.2) K/uL Puncture Site Rb pCO2 25 L (35-45) mm/Hg pO2 184 H (80-100) mm/Hg HCO3 19.9 L (21-28) mmol/L ABG pH 7.43 (7.35-7.45) ABG Total CO2 17.4 L (22-28) mmol/L ABG O2 Saturation 99.1 H (95-98) % ABG Base Excess -6.4 L (-2.0-3.0) mmol/L ABG Hemoglobin 10.7 L (11.7-17.4) g/dL ABG Carboxyhemoglobin 1.0 (0.5-1.5) % POC ABG HHb (Measured) 0.9 (0.0-5.0) % ABG Methemoglobin 0.8 (0.0-3.0) % Bhanu Test Na A-a O2 Difference 320.0 mm/Hg Respiratory Index 1.7 Hgb O2 Saturation 97.2 (95.0-98.0) % Vent Mode Prvc Mechanical Rate 16 FiO2 75.0 % Tidal Volume 500 PEEP 5 Sodium (132-148) mmol/L Potassium (3.6-5.2) mmol/L Chloride (98-107) mmol/L Carbon Dioxide (22-30) mmol/L Anion Gap (10-20) BUN (9-20) mg/dL Creatinine (0.8-1.5) MG/DL Est GFR ( Amer) Est GFR (Non-Af Amer) POC Glucose (mg/dL) 404 H* 284 H (65-110) mg/dL Random Glucose (75-110) mg/dL Calcium (8.6-10.4) mg/dl Phosphorus (2.5-4.5) mg/dL Magnesium (1.6-2.3) mg/dL Total Bilirubin (0.2-1.3) mg/dL AST (17-59) U/L ALT (21-72) U/L Alkaline Phosphatase (38-126) U/L Total Protein (6.3-8.3) g/dL Albumin (3.5-5.0) g/dL Globulin (2.2-3.9) gm/dL Albumin/Globulin Ratio (1.0-2.1) Urine Color (YELLOW) Urine Clarity (Clear) Urine pH (5.0-8.0) Ur Specific [place] (1.003-1.030) Urine Protein (NEGATIVE) mg/dL Urine Glucose (UA) (Normal) mg/dL Urine Ketones (NEGATIVE) mg/dL Urine Blood (NEGATIVE) Urine Nitrate (NEGATIVE) Urine Bilirubin (NEGATIVE) Urine Urobilinogen (0.2-1.0) mg/dL Ur Leukocyte Esterase (Negative) Kumar/uL Urine WBC (Auto) (0-5) /hpf Urine RBC (Auto) (0-3) /hpf Ur Squamous Epith Cells (0-5) /hpf Amorphous Sediment (<OCC) /ul 05/30/17 05/30/17 Range/Units 13:16 12:35 WBC (4.8-10.8) K/uL RBC (4.40-5.90) Mil/uL Hgb (12.0-18.0) g/dL Hct (35.0-51.0) % MCV (80.0-94.0) fL MCH (27.0-31.0) pg MCHC (33.0-37.0) g/dL RDW (11.5-14.5) % Plt Count (130-400) K/uL MPV (7.2-11.7) fL Neut % (Auto) (50.0-75.0) % Lymph % (Auto) (20.0-40.0) % Marin % (Auto) (0.0-10.0) % Eos % (Auto) (0.0-4.0) % Baso % (Auto) (0.0-2.0) % Neut # (1.8-7.0) K/uL Lymph # (1.0-4.3) K/uL Marin # (0.0-0.8) K/uL Eos # (0.0-0.7) K/uL Baso # (0.0-0.2) K/uL Puncture Site pCO2 (35-45) mm/Hg pO2 (80-100) mm/Hg HCO3 (21-28) mmol/L ABG pH (7.35-7.45) ABG Total CO2 (22-28) mmol/L ABG O2 Saturation (95-98) % ABG Base Excess (-2.0-3.0) mmol/L ABG Hemoglobin (11.7-17.4) g/dL ABG Carboxyhemoglobin (0.5-1.5) % POC ABG HHb (Measured) (0.0-5.0) % ABG Methemoglobin (0.0-3.0) % Bhanu Test A-a O2 Difference mm/Hg Respiratory Index Hgb O2 Saturation (95.0-98.0) % Vent Mode Mechanical Rate FiO2 % Tidal Volume PEEP Sodium (132-148) mmol/L Potassium (3.6-5.2) mmol/L Chloride (98-107) mmol/L Carbon Dioxide (22-30) mmol/L Anion Gap (10-20) BUN (9-20) mg/dL Creatinine (0.8-1.5) MG/DL Est GFR ( Amer) Est GFR (Non-Af Amer) POC Glucose (mg/dL) 218 H (65-110) mg/dL Random Glucose (75-110) mg/dL Calcium (8.6-10.4) mg/dl Phosphorus (2.5-4.5) mg/dL Magnesium (1.6-2.3) mg/dL Total Bilirubin (0.2-1.3) mg/dL AST (17-59) U/L ALT (21-72) U/L Alkaline Phosphatase (38-126) U/L Total Protein (6.3-8.3) g/dL Albumin (3.5-5.0) g/dL Globulin (2.2-3.9) gm/dL Albumin/Globulin Ratio (1.0-2.1) Urine Color Tamy (YELLOW) Urine Clarity Hazy (Clear) Urine pH 5.0 (5.0-8.0) Ur Specific [place]on 1.034 H (1.003-1.030) Urine Protein 2+ H (NEGATIVE) mg/dL Urine Glucose (UA) 1+ H (Normal) mg/dL Urine Ketones Trace (NEGATIVE) mg/dL Urine Blood 2+ H (NEGATIVE) Urine Nitrate Negative (NEGATIVE) Urine Bilirubin Negative (NEGATIVE) Urine Urobilinogen Normal (0.2-1.0) mg/dL Ur Leukocyte Esterase Neg (Negative) Kumar/uL Urine WBC (Auto) 8 H (0-5) /hpf Urine RBC (Auto) 80 H (0-3) /hpf Ur Squamous Epith Cells 1 (0-5) /hpf Amorphous Sediment Rare H (<OCC) /ul Laboratory Results - last 24 hr 05/30/17 05/30/17 05/30/17 12:35 13:16 17:47 WBC RBC Hgb Hct MCV MCH MCHC RDW Plt Count MPV Neut % (Auto) Lymph % (Auto) Marin % (Auto) Eos % (Auto) Baso % (Auto) Neut # Lymph # Marin # Eos # Baso # Puncture Site pCO2 pO2 HCO3 ABG pH ABG Total CO2 ABG O2 Saturation ABG Base Excess ABG Hemoglobin ABG Carboxyhemoglobin POC ABG HHb (Measured) ABG Methemoglobin Bhanu Test A-a O2 Difference Respiratory Index Hgb O2 Saturation Vent Mode Mechanical Rate FiO2 Tidal Volume PEEP Sodium Potassium Chloride Carbon Dioxide Anion Gap BUN Creatinine Est GFR ( Amer) Est GFR (Non-Af Amer) POC Glucose (mg/dL) 218 H 284 H Random Glucose Calcium Phosphorus Magnesium Total Bilirubin AST ALT Alkaline Phosphatase Total Protein Albumin Globulin Albumin/Globulin Ratio Urine Color Tamy Urine Clarity Hazy Urine pH 5.0 Ur Specific Wishon 1.034 H Urine Protein 2+ H Urine Glucose (UA) 1+ H Urine Ketones Trace Urine Blood 2+ H Urine Nitrate Negative Urine Bilirubin Negative Urine Urobilinogen Normal Ur Leukocyte Esterase Neg Urine WBC (Auto) 8 H Urine RBC (Auto) 80 H Ur Squamous Epith Cells 1 Amorphous Sediment Rare H 05/30/17 05/31/17 05/31/17 23:46 05:11 05:24 WBC RBC Hgb Hct MCV MCH MCHC RDW Plt Count MPV Neut % (Auto) Lymph % (Auto) Marin % (Auto) Eos % (Auto) Baso % (Auto) Neut # Lymph # Marin # Eos # Baso # Puncture Site Rb pCO2 25 L pO2 184 H HCO3 19.9 L ABG pH 7.43 ABG Total CO2 17.4 L ABG O2 Saturation 99.1 H ABG Base Excess -6.4 L ABG Hemoglobin 10.7 L ABG Carboxyhemoglobin 1.0 POC ABG HHb (Measured) 0.9 ABG Methemoglobin 0.8 Bhanu Test Na A-a O2 Difference 320.0 Respiratory Index 1.7 Hgb O2 Saturation 97.2 Vent Mode Prvc Mechanical Rate 16 FiO2 75.0 Tidal Volume 500 PEEP 5 Sodium Potassium Chloride Carbon Dioxide Anion Gap BUN Creatinine Est GFR ( Amer) Est GFR (Non-Af Amer) POC Glucose (mg/dL) 404 H* 367 H Random Glucose Calcium Phosphorus Magnesium Total Bilirubin AST ALT Alkaline Phosphatase Total Protein Albumin Globulin Albumin/Globulin Ratio Urine Color Urine Clarity Urine pH Ur Specific [place] Urine Protein Urine Glucose (UA) Urine Ketones Urine Blood Urine Nitrate Urine Bilirubin Urine Urobilinogen Ur Leukocyte Esterase Urine WBC (Auto) Urine RBC (Auto) Ur Squamous Epith Cells Amorphous Sediment 05/31/17 05/31/17 06:16 06:18 WBC 5.6 RBC 3.22 L Hgb 9.8 L Hct 29.0 L MCV 89.9 MCH 30.3 MCHC 33.8 RDW 15.6 H Plt Count 25 L* D MPV 9.2 Neut % (Auto) 79.8 H Lymph % (Auto) 13.6 L Marin % (Auto) 4.9 Eos % (Auto) 1.3 Baso % (Auto) 0.4 Neut # 4.5 Lymph # 0.8 L Marin # 0.3 Eos # 0.1 Baso # 0.0 Puncture Site pCO2 pO2 HCO3 ABG pH ABG Total CO2 ABG O2 Saturation ABG Base Excess ABG Hemoglobin ABG Carboxyhemoglobin POC ABG HHb (Measured) ABG Methemoglobin Bhanu Test A-a O2 Difference Respiratory Index Hgb O2 Saturation Vent Mode Mechanical Rate FiO2 Tidal Volume PEEP Sodium 133 Potassium 4.6 Chloride 106 Carbon Dioxide 14 L Anion Gap 18 BUN 52 H Creatinine 1.6 H Est GFR ( Amer) 52 Est GFR (Non-Af Amer) 43 POC Glucose (mg/dL) Random Glucose 358 H Calcium 7.5 L Phosphorus 4.9 H Magnesium 2.4 H Total Bilirubin 0.7 AST 2861 H ALT 2685 H Alkaline Phosphatase 96 Total Protein 5.8 L Albumin 2.9 L Globulin 2.9 Albumin/Globulin Ratio 1.0 Urine Color Urine Clarity Urine pH Ur Specific Wishon Urine Protein Urine Glucose (UA) Urine Ketones Urine Blood Urine Nitrate Urine Bilirubin Urine Urobilinogen Ur Leukocyte Esterase Urine WBC (Auto) Urine RBC (Auto) Ur Squamous Epith Cells Amorphous Sediment EKG/Cardiology Studies: Cardiology / EKG Studies 05/30/17 09:19 EKG [ELECTROCARDIOGRAM] Routine Comment: Mode Of Transportation: PORTABLE Reason For Exam: MD EKG [ELECTROCARDIOGRAM] Stat Comment: Mode Of Transportation: Reason For Exam: s/p cath Fingerstick Blood Sugar Results: 367 Review of Systems - Review of Systems Systems not reviewed;Unavailable: Intubated Assessment/Plan - Assessment and Plan (Free Text) Assessment: 71 y/o male with HTN, DM, Hyperlipidemia brought in with chest pain s/p cardiac cath Today 05/31/17: Patient with platelet count of 25 today, will transfuse 2 bags of platelets. IABP was removed by Dr. Gu. Patient received Duoneb treament this morning and shortly after became tachycardic. Duonebs has been discontinued at this time. Amiodarone drip was started for rate control of A- fib. Cardiovascular: CAD/MD Code Heart/HTN/Hyperlipidemia/A-fib - s/p 2 stents, Transvenous pacemaker and Intra-aortic balloon pump - Thrombocytopenia on labs today, supplement with platelet pharesis today. - Possibly 2/2 IABP shearing force. IABP removed today by Dr. Gu - Patient was hypotensive in ER, on phenylephrine. Will monitor BP - 05/29 Echo: moderate concentric LVH. Hyptrophic cardiomyopathy. Systolc function mod-severly impaired. LVEF 28%. Transmitral dopper - Grade I abnormal relaxation. - 05/29 EKG: widened QRS, Adi 43 bpm - Wreath Machine Operator, Dr Gu, on board - proBNP 3280 - Aspirin 300mg rectal suppository daily - Plavix 75mg po daily - Rosuvastatin 20mg po hs - Lopressor 12.5 mg NG BID - Amiodarine 900 mg IV daily - Crestor 20 mg PO HS Pulmonary: Respiratory failure on Ventilator; left sided effusion - Intubated and sedated on Precedex 200 mcg - f/u daily Chest Xray - PRVC, not starting pressure support at this time - Mucomyst 4ml INH RQ4 GI: Transaminitis - f/u PT, INR - Start Glucerna tube feeding today ID: No acute issues, afebrile today - blood cultures negative to date, f/u urine, sputum cultures; - UA positive for protein, glucose, blood, wbc, rbc Endocrine: - Increased DM-insulin coverage to high dose Neuro: - patient with sluggish pupillary reaction with spontaneous respirations - Versed 2 mg IV Q4 for agitation - Ativan 1 mg IV Q6 prn for agitation Prophylaxis: GI: pepcid 20mg iv - renal dosing DVT: plavix 75mg po daily - pt not able to tolerate oral medications today as pt with secretions Fluids: D5NS @ 60 cc/hr <Curly Vasquez - Last Filed: 05/31/17 18:36> CCU Objective - Vital Signs / Intake & Output Vital Signs (Last 4 hours): Vital Signs Temp Pulse Resp BP 05/31/17 17:06 76 35 H 102/05/31/17 17:00 76 34 H 05/31/17 16:58 76 34 H 102/05/31/17 16:34 80 35 H 101/05/31/17 16:30 76 35 H 102/05/31/17 16:18 78 39 H 96/67 L 05/31/17 16:04 79 37 H 99/68 L 05/31/17 16:00 97.8 F 88 33 H 05/31/17 15:49 80 35 H 102/68 05/31/17 15:34 89 35 H 111/73 05/31/17 15:19 95 H 35 H 115/78 05/31/17 15:04 108 H 35 H 129/82 05/31/17 15:00 108 H 31 H 131/92 H 05/31/17 14:36 88 Intake and Output (Last 8hrs): Intake & Output 05/31/17 05/31/17 05/31/17 06:59 14:59 22:59 Intake Total 1349 1875.7 803.1 Output Total 375 280 80 Balance 974 1595.7 723.1 Weight 175 lb 175 lb 0.012 oz Intake: IV 353 449 293 Intake, IV Amount 996 1426.7 510.1 Right Distal Port 550 520 180 Right Medial Port Femoral 96 170.2 83.4 Right Proximal Port 266.5 66.7 Femoral rt proximal sideport 350 470 180 Output: Gastric Amount 10 Stomach 10 Urine 375 280 70 Urethral (Sifuentes) 375 280 70 Other: # Bowel Movements 1 - Medications Active Medications: Active Medications Generic Name Dose Route Start Last Admin Trade Name Freq PRN Reason Stop Dose Admin Aspirin 300 mg 05/29/17 12:00 05/31/17 11:51 Aspirin Supp WV 300 mg DAILY ZULMA Administration Clopidogrel Bisulfate 75 mg 05/29/17 10:00 05/31/17 11:51 Plavix PO 75 mg DAILY ZULMA Administration Famotidine 20 mg 05/29/17 10:35 05/31/17 11:50 Pepcid IVP 20 mg DAILY ZULMA Administration Propofol 1,000 mg in 100 mls @ 2.4 mls/hr 05/29/17 01:00 05/31/17 07:45 Diprivan IV 0 mcg/kg/min .Q24H PRN 0 mls/hr TITRATE PER MD ORDER Titration Protocol 5 MCG/KG/MIN Dextrose/Sodium Chloride 1,000 mls @ 60 mls/hr 05/30/17 09:45 05/31/17 11:24 Dextrose 5%/0.9% Ns 1000 Ml IV 60 mls/hr .[id number] ZULMA Administration Phenylephrine HCl 30 mg/ 253 mls @ 10.12 mls/hr 05/30/17 11:20 05/31/17 17:06 Dextrose IV 120 mcg/min .Q24H PRN 60.72 mls/hr TITRATE PER MD ORDER Administration Protocol 20 MCG/MIN Dexmedetomidine HCl 200 mcg/ 50 mls @ 3.96 mls/hr 05/31/17 08:09 05/31/17 16: 35 Sodium Chloride IV 1.5 mcg/kg/hr TITR PRN 29.76 mls/hr Agitation Administration Protocol 0.2 MCG/KG/HR Amiodarone HCl 900 mg/ 500 mls @ 16.66 mls/hr 05/31/17 16:29 05/31/17 16:30 Dextrose IV 06/01/17 16:28 16.66 mls/hr .Q24H ZULMA Administration Protocol 0.5 MG/MIN Insulin Human Regular 0 unit 05/31/17 14:15 05/31/17 18:09 Novolin R SC 6 unit Q6 ZULMA Administration Protocol Lorazepam 1 mg 05/29/17 22:41 05/29/17 23:12 Ativan IVP 1 mg Q6H PRN Administration Anxiety Metoprolol Tartrate 12.5 mg 05/30/17 15:45 05/31/17 18:11 Lopressor NG Not Given BID ZULMA Midazolam HCl 2 mg 05/31/17 12:45 05/31/17 15:50 Versed Inj IVP 2 mg Q4H ZULMA Administration Morphine Sulfate 2 mg 05/29/17 22:41 05/30/17 04:29 Morphine IVP 2 mg Q4 PRN Administration Pain, moderate (4-7) Rosuvastatin Calcium 20 mg 05/29/17 22:00 05/30/17 22:17 Crestor PO 20 mg HS ZULMA Administration - Patient Studies Lab Studies: Microbiology Studies 05/30/17 12:45 Urine Culture - Final Urine,Sifuentes No Growth (<1,000 CFU/ML) 05/30/17 16:10 Gram Stain - Final Trachasp 05/30/17 13:30 Blood Culture - Preliminary Blood-Venous NO GROWTH AFTER 24 HOURS 05/30/17 13:00 Blood Culture - Preliminary Blood-Venous NO GROWTH AFTER 24 HOURS 05/29/17 Unknown MRSA Culture (Admit) - Final Naris MRSA NOT DETECTED Lab Studies 05/31/17 05/31/17 05/31/17 Range/Units 17:24 14:25 12:53 WBC (4.8-10.8) K/uL RBC (4.40-5.90) Mil/uL Hgb (12.0-18.0) g/dL Hct (35.0-51.0) % MCV (80.0-94.0) fL MCH (27.0-31.0) pg MCHC (33.0-37.0) g/dL RDW (11.5-14.5) % Plt Count (130-400) K/uL MPV (7.2-11.7) fL Neut % (Auto) (50.0-75.0) % Lymph % (Auto) (20.0-40.0) % Marin % (Auto) (0.0-10.0) % Eos % (Auto) (0.0-4.0) % Baso % (Auto) (0.0-2.0) % Neut # (1.8-7.0) K/uL Lymph # (1.0-4.3) K/uL Marin # (0.0-0.8) K/uL Eos # (0.0-0.7) K/uL Baso # (0.0-0.2) K/uL Differential Comment PT 19.2 H D (9.7-12.2) SECONDS INR 1.7 D Puncture Site pCO2 (35-45) mm/Hg pO2 (80-100) mm/Hg HCO3 (21-28) mmol/L ABG pH (7.35-7.45) ABG Total CO2 (22-28) mmol/L ABG O2 Saturation (95-98) % ABG Base Excess (-2.0-3.0) mmol/L ABG Hemoglobin (11.7-17.4) g/dL ABG Carboxyhemoglobin (0.5-1.5) % POC ABG HHb (Measured) (0.0-5.0) % ABG Methemoglobin (0.0-3.0) % Bhanu Test A-a O2 Difference mm/Hg Respiratory Index Hgb O2 Saturation (95.0-98.0) % Vent Mode Mechanical Rate FiO2 % Tidal Volume PEEP Sodium (132-148) mmol/L Potassium (3.6-5.2) mmol/L Chloride (98-107) mmol/L Carbon Dioxide (22-30) mmol/L Anion Gap (10-20) BUN (9-20) mg/dL Creatinine (0.8-1.5) MG/DL Est GFR ( Amer) Est GFR (Non-Af Amer) POC Glucose (mg/dL) 286 H 271 H (65-110) mg/dL Random Glucose (75-110) mg/dL Calcium (8.6-10.4) mg/dl Phosphorus (2.5-4.5) mg/dL Magnesium (1.6-2.3) mg/dL Total Bilirubin (0.2-1.3) mg/dL AST (17-59) U/L ALT (21-72) U/L Alkaline Phosphatase (38-126) U/L Total Protein (6.3-8.3) g/dL Albumin (3.5-5.0) g/dL Globulin (2.2-3.9) gm/dL Albumin/Globulin Ratio (1.0-2.1) 05/31/17 05/31/17 05/31/17 Range/Units 06:18 06:16 05:24 WBC 5.6 (4.8-10.8) K/uL RBC 3.22 L (4.40-5.90) Mil/uL Hgb 9.8 L (12.0-18.0) g/dL Hct 29.0 L (35.0-51.0) % MCV 89.9 (80.0-94.0) fL MCH 30.3 (27.0-31.0) pg MCHC 33.8 (33.0-37.0) g/dL RDW 15.6 H (11.5-14.5) % Plt Count 25 L* D (130-400) K/uL MPV 9.2 (7.2-11.7) fL Neut % (Auto) 79.8 H (50.0-75.0) % Lymph % (Auto) 13.6 L (20.0-40.0) % Marin % (Auto) 4.9 (0.0-10.0) % Eos % (Auto) 1.3 (0.0-4.0) % Baso % (Auto) 0.4 (0.0-2.0) % Neut # 4.5 (1.8-7.0) K/uL Lymph # 0.8 L (1.0-4.3) K/uL Marin # 0.3 (0.0-0.8) K/uL Eos # 0.1 (0.0-0.7) K/uL Baso # 0.0 (0.0-0.2) K/uL Differential Comment PT (9.7-12.2) SECONDS INR Puncture Site pCO2 (35-45) mm/Hg pO2 (80-100) mm/Hg HCO3 (21-28) mmol/L ABG pH (7.35-7.45) ABG Total CO2 (22-28) mmol/L ABG O2 Saturation (95-98) % ABG Base Excess (-2.0-3.0) mmol/L ABG Hemoglobin (11.7-17.4) g/dL ABG Carboxyhemoglobin (0.5-1.5) % POC ABG HHb (Measured) (0.0-5.0) % ABG Methemoglobin (0.0-3.0) % Bhanu Test A-a O2 Difference mm/Hg Respiratory Index Hgb O2 Saturation (95.0-98.0) % Vent Mode Mechanical Rate FiO2 % Tidal Volume PEEP Sodium 133 (132-148) mmol/L Potassium 4.6 (3.6-5.2) mmol/L Chloride 106 (98-107) mmol/L Carbon Dioxide 14 L (22-30) mmol/L Anion Gap 18 (10-20) BUN 52 H (9-20) mg/dL Creatinine 1.6 H (0.8-1.5) MG/DL Est GFR ( Amer) 52 Est GFR (Non-Af Amer) 43 POC Glucose (mg/dL) 367 H (65-110) mg/dL Random Glucose 358 H (75-110) mg/dL Calcium 7.5 L (8.6-10.4) mg/dl Phosphorus 4.9 H (2.5-4.5) mg/dL Magnesium 2.4 H (1.6-2.3) mg/dL Total Bilirubin 0.7 (0.2-1.3) mg/dL AST 2861 H (17-59) U/L ALT 2685 H (21-72) U/L Alkaline Phosphatase 96 (38-126) U/L Total Protein 5.8 L (6.3-8.3) g/dL Albumin 2.9 L (3.5-5.0) g/dL Globulin 2.9 (2.2-3.9) gm/dL Albumin/Globulin Ratio 1.0 (1.0-2.1) 05/31/17 05/30/17 Range/Units 05:11 23:46 WBC (4.8-10.8) K/uL RBC (4.40-5.90) Mil/uL Hgb (12.0-18.0) g/dL Hct (35.0-51.0) % MCV (80.0-94.0) fL MCH (27.0-31.0) pg MCHC (33.0-37.0) g/dL RDW (11.5-14.5) % Plt Count (130-400) K/uL MPV (7.2-11.7) fL Neut % (Auto) (50.0-75.0) % Lymph % (Auto) (20.0-40.0) % Marin % (Auto) (0.0-10.0) % Eos % (Auto) (0.0-4.0) % Baso % (Auto) (0.0-2.0) % Neut # (1.8-7.0) K/uL Lymph # (1.0-4.3) K/uL Marin # (0.0-0.8) K/uL Eos # (0.0-0.7) K/uL Baso # (0.0-0.2) K/uL Differential Comment PT (9.7-12.2) SECONDS INR Puncture Site Rb pCO2 25 L (35-45) mm/Hg pO2 184 H (80-100) mm/Hg HCO3 19.9 L (21-28) mmol/L ABG pH 7.43 (7.35-7.45) ABG Total CO2 17.4 L (22-28) mmol/L ABG O2 Saturation 99.1 H (95-98) % ABG Base Excess -6.4 L (-2.0-3.0) mmol/L ABG Hemoglobin 10.7 L (11.7-17.4) g/dL ABG Carboxyhemoglobin 1.0 (0.5-1.5) % POC ABG HHb (Measured) 0.9 (0.0-5.0) % ABG Methemoglobin 0.8 (0.0-3.0) % Bhanu Test Na A-a O2 Difference 320.0 mm/Hg Respiratory Index 1.7 Hgb O2 Saturation 97.2 (95.0-98.0) % Vent Mode Prvc Mechanical Rate 16 FiO2 75.0 % Tidal Volume 500 PEEP 5 Sodium (132-148) mmol/L Potassium (3.6-5.2) mmol/L Chloride (98-107) mmol/L Carbon Dioxide (22-30) mmol/L Anion Gap (10-20) BUN (9-20) mg/dL Creatinine (0.8-1.5) MG/DL Est GFR ( Amer) Est GFR (Non-Af Amer) POC Glucose (mg/dL) 404 H* (65-110) mg/dL Random Glucose (75-110) mg/dL Calcium (8.6-10.4) mg/dl Phosphorus (2.5-4.5) mg/dL Magnesium (1.6-2.3) mg/dL Total Bilirubin (0.2-1.3) mg/dL AST (17-59) U/L ALT (21-72) U/L Alkaline Phosphatase (38-126) U/L Total Protein (6.3-8.3) g/dL Albumin (3.5-5.0) g/dL Globulin (2.2-3.9) gm/dL Albumin/Globulin Ratio (1.0-2.1) Laboratory Results - last 24 hr 05/30/17 05/31/17 05/31/17 23:46 05:11 05:24 WBC RBC Hgb Hct MCV MCH MCHC RDW Plt Count MPV Neut % (Auto) Lymph % (Auto) [place] % (Auto) Eos % (Auto) Baso % (Auto) Neut # Lymph # [place] # Eos # Baso # Differential Comment PT INR Puncture Site Rb pCO2 25 L pO2 184 H HCO3 19.9 L ABG pH 7.43 ABG Total CO2 17.4 L ABG O2 Saturation 99.1 H ABG Base Excess -6.4 L ABG Hemoglobin 10.7 L ABG Carboxyhemoglobin 1.0 POC ABG HHb (Measured) 0.9 ABG Methemoglobin 0.8 Bhanu Test Na A-a O2 Difference 320.0 Respiratory Index 1.7 Hgb O2 Saturation 97.2 Vent Mode Prvc Mechanical Rate 16 FiO2 75.0 Tidal Volume 500 PEEP 5 Sodium Potassium Chloride Carbon Dioxide Anion Gap BUN Creatinine Est GFR ( Amer) Est GFR (Non-Af Amer) POC Glucose (mg/dL) 404 H* 367 H Random Glucose Calcium Phosphorus Magnesium Total Bilirubin AST ALT Alkaline Phosphatase Total Protein Albumin Globulin Albumin/Globulin Ratio 05/31/17 05/31/17 05/31/17 06:16 06:18 12:53 WBC 5.6 RBC 3.22 L Hgb 9.8 L Hct 29.0 L MCV 89.9 MCH 30.3 MCHC 33.8 RDW 15.6 H Plt Count 25 L* D MPV 9.2 Neut % (Auto) 79.8 H Lymph % (Auto) 13.6 L [place] % (Auto) 4.9 Eos % (Auto) 1.3 Baso % (Auto) 0.4 Neut # 4.5 Lymph # 0.8 L [place] # 0.3 Eos # 0.1 Baso # 0.0 Differential Comment PT INR Puncture Site pCO2 pO2 HCO3 ABG pH ABG Total CO2 ABG O2 Saturation ABG Base Excess ABG Hemoglobin ABG Carboxyhemoglobin POC ABG HHb (Measured) ABG Methemoglobin Bhaun Test A-a O2 Difference Respiratory Index Hgb O2 Saturation Vent Mode Mechanical Rate FiO2 Tidal Volume PEEP Sodium 133 Potassium 4.6 Chloride 106 Carbon Dioxide 14 L Anion Gap 18 BUN 52 H Creatinine 1.6 H Est GFR ( Amer) 52 Est GFR (Non-Af Amer) 43 POC Glucose (mg/dL) 271 H Random Glucose 358 H Calcium 7.5 L Phosphorus 4.9 H Magnesium 2.4 H Total Bilirubin 0.7 AST 2861 H ALT 2685 H Alkaline Phosphatase 96 Total Protein 5.8 L Albumin 2.9 L Globulin 2.9 Albumin/Globulin Ratio 1.0 05/31/17 05/31/17 14:25 17:24 WBC RBC Hgb Hct MCV MCH MCHC RDW Plt Count MPV Neut % (Auto) Lymph % (Auto) [place] % (Auto) Eos % (Auto) Baso % (Auto) Neut # Lymph # [place] # Eos # Baso # Differential Comment PT 19.2 H D INR 1.7 D Puncture Site pCO2 pO2 HCO3 ABG pH ABG Total CO2 ABG O2 Saturation ABG Base Excess ABG Hemoglobin ABG Carboxyhemoglobin POC ABG HHb (Measured) ABG Methemoglobin Bhanu Test A-a O2 Difference Respiratory Index Hgb O2 Saturation Vent Mode Mechanical Rate FiO2 Tidal Volume PEEP Sodium Potassium Chloride Carbon Dioxide Anion Gap BUN Creatinine Est GFR ( Amer) Est GFR (Non-Af Amer) POC Glucose (mg/dL) 286 H Random Glucose Calcium Phosphorus Magnesium Total Bilirubin AST ALT Alkaline Phosphatase Total Protein Albumin Globulin Albumin/Globulin Ratio Attending/Attestation - Attestation I have personally seen and examined this patient.: Yes I have fully participated in the care of the patient.: Yes I have reviewed all pertinent clinical information: Yes Notes (Text): 05/31/17 18:28 I have seen and examined the patient. Medical records, lab studies, and imaging were reviewed by me and a management plan was formulated on multidisciplinary rounds with resident Dr. Veliz. I agree with their above documented assessment and plan. Worsening thrombocytopenia secondary to balloon pump, now removed, transfusing 2 pooled units of platelets. Cardiogenic shock improving, pressor requirements decreasing. Not tolerating the vent when decreasing sedation, will do daily attempts. Critical Care Time 35 minutes. Multi-disciplinary rounds were performed with house staff, nursing, speech therapy, respiratory therapy, pharmacy and nutrition with integrated input from the primary team/attending and other consulting services. The documented time is cumulative and includes review of patient data/exams/labs/chart review and examination of the patient on rounds and throughout the day; time is exclusive of any procedures or teaching time. 05/31/17 18:32
--- NOTE | 2017-05-31 10:12 | RAD ---
HISTORY: vent COMPARISON: 05/30/2017 FINDINGS: LUNGS: Diffuse left-sided opacity slightly improved compared to prior examination. No abnormal right-sided opacity. PLEURA: No definite pleural effusion. However, left hemidiaphragm is not visualized and may be silhouetted by pleural fluid. No evidence of right pleural effusion. No pneumothorax. CARDIOVASCULAR: Normal heart size. Congestive change noted. Endotracheal tube and nasogastric tube are unchanged in position. OSSEOUS STRUCTURES: No significant abnormalities. VISUALIZED UPPER ABDOMEN: Normal. OTHER FINDINGS: None. IMPRESSION: It improving diffuse left-sided opacity. Possible left pleural effusion. Congestive change. Lines and tubes unchanged.
[2017-05-31] MEDS: Midazolam 2 MG/2 ML VIAL IVP SCH ×3 (12:46→21:28)
[2017-05-31] MEDS ORDERED: Midazolam 2 MG/2 ML VIAL ONE (12:47)
[2017-05-31 14:36] LABS: INR 1.7
[2017-05-31] MEDS ORDERED: DOPamine 400mg/250ml D5W 400 MG/250 ML BAG IV ONE (18:32)
[2017-05-31] MEDS: DOPamine 400mg/250ml D5W 400 MG/250 ML BAG IV PRN (18:38)
--- NOTE | 2017-05-31 19:05 | CP.PCM.PN ---
Subjective - Date & Time of Evaluation Date of Evaluation: 05/31/17 Objective - Vital Signs/Intake and Output Vital Signs (last 24 hours): Temp Pulse Resp BP Pulse Ox 97.8 F 47 L 33 H 93/50 L 66 L 05/31/17 16:00 05/31/17 18:38 05/31/17 18:38 05/31/17 18:38 05/31/17 13:00 Intake and Output: 05/31/17 06/01/17 18:59 06:59 Intake Total 3071.3 Output Total 380 Balance 2691.3 - Medications Medications: Current Medications Aspirin (Aspirin Supp) 300 mg UT DAILY [facility] Last Admin: 05/31/17 11:51 Dose: 300 mg Clopidogrel Bisulfate (Plavix) 75 mg PO DAILY [facility] Last Admin: 05/31/17 11:51 Dose: 75 mg Famotidine (Pepcid) 20 mg IVP DAILY [facility] Last Admin: 05/31/17 11:50 Dose: 20 mg Propofol (Diprivan) 1,000 mg in 100 mls @ 2.4 mls/hr IV .Q24H PRN; Protocol; 5 MCG/KG/MIN PRN Reason: TITRATE PER MD ORDER Last Titration: 05/31/17 07:45 Dose: 0 mcg/kg/min, 0 mls/hr Dextrose/Sodium Chloride (Dextrose 5%/0.9% Ns 1000 Ml) 1,000 mls @ 60 mls/hr IV .[id number] [facility] Last Admin: 05/31/17 11:24 Dose: 60 mls/hr Phenylephrine HCl 30 mg/ (Dextrose) 253 mls @ 10.12 mls/hr IV .Q24H PRN; Protocol; 20 MCG/MIN PRN Reason: TITRATE PER MD ORDER Last Admin: 05/31/17 17:06 Dose: 120 mcg/min, 60.72 mls/hr Dexmedetomidine HCl 200 mcg/ (Sodium Chloride) 50 mls @ 3.96 mls/hr IV TITR PRN ; Protocol; 0.2 MCG/KG/HR PRN Reason: Agitation Last Titration: 05/31/17 18:30 Dose: 1 mcg/kg/hr, 19.84 mls/hr Dopamine HCl/Dextrose (Dopamine 400mg/250ml D5w) 400 mg in 250 mls @ 59.534 mls /hr IV .Q4H12M PRN; Protocol; 20 MCG/KG/MIN PRN Reason: TITRATE PER MD ORDER Insulin Human Regular (Novolin R) 0 unit SC Q6 ZULMA PRN Reason: Protocol Last Admin: 05/31/17 18:09 Dose: 6 unit Lorazepam (Ativan) 1 mg IVP Q6H PRN PRN Reason: Anxiety Last Admin: 05/29/17 23:12 Dose: 1 mg Metoprolol Tartrate (Lopressor) 12.5 mg NG BID ZULMA Last Admin: 05/31/17 18:11 Dose: Not Given Midazolam HCl (Versed Inj) 2 mg IVP Q4H ZULMA Last Admin: 05/31/17 15:50 Dose: 2 mg Morphine Sulfate (Morphine) 2 mg IVP Q4 PRN PRN Reason: Pain, moderate (4-7) Last Admin: 05/30/17 04:29 Dose: 2 mg Rosuvastatin Calcium (Crestor) 20 mg PO HS ZULMA Last Admin: 05/30/17 22:17 Dose: 20 mg - Labs Labs: 05/31/17 06:18 05/31/17 06:16 PT 19.2 SECONDS (9.7-12.2) H D 05/31/17 14:25 INR 1.7 D 05/31/17 14:25 APTT 18 SECONDS (21-34) L 05/28/17 18:02 Assessment and Plan (1) Endotracheally intubated Status: Acute (2) Hypotension Status: Acute (3) Acute NC Status: Acute (4) S/P angioplasty Status: Acute
--- NOTE | 2017-05-31 20:40 | CP.PCM.PN ---
Subjective - Date & Time of Evaluation Date of Evaluation: 05/31/17 Time of Evaluation: 14:30 - Subjective Subjective: IABP removed due to thrombocytopenia on pressors on precedex Objective - Vital Signs/Intake and Output Vital Signs (last 24 hours): Temp Pulse Resp BP Pulse Ox 97.8 F 109 H 36 H 136/68 66 L 05/31/17 16:00 05/31/17 19:31 05/31/17 19:31 05/31/17 19:31 05/31/17 13:00 Intake and Output: 05/31/17 06/01/17 18:59 06:59 Intake Total 3084.3 260.1 Output Total 380 20 Balance 2704.3 240.1 - Medications Medications: Current Medications Aspirin (Aspirin Supp) 300 mg [place] DAILY [facility] Last Admin: 05/31/17 11:51 Dose: 300 mg Clopidogrel Bisulfate (Plavix) 75 mg PO DAILY [facility] Last Admin: 05/31/17 11:51 Dose: 75 mg Famotidine (Pepcid) 20 mg IVP DAILY [facility] Last Admin: 05/31/17 11:50 Dose: 20 mg Propofol (Diprivan) 1,000 mg in 100 mls @ 2.4 mls/hr IV .Q24H PRN; Protocol; 5 MCG/KG/MIN PRN Reason: TITRATE PER MD ORDER Last Titration: 05/31/17 07:45 Dose: 0 mcg/kg/min, 0 mls/hr Dextrose/Sodium Chloride (Dextrose 5%/0.9% Ns 1000 Ml) 1,000 mls @ 60 mls/hr IV .[id number] [facility] Last Admin: 05/31/17 19:07 Dose: Not Given Phenylephrine HCl 30 mg/ (Dextrose) 253 mls @ 10.12 mls/hr IV .Q24H PRN; Protocol; 20 MCG/MIN PRN Reason: TITRATE PER MD ORDER Last Titration: 05/31/17 19:00 Dose: 138.33 mcg/min, 70 mls/hr Dexmedetomidine HCl 200 mcg/ (Sodium Chloride) 50 mls @ 3.96 mls/hr IV TITR PRN ; Protocol; 0.2 MCG/KG/HR PRN Reason: Agitation Last Admin: 05/31/17 19:07 Dose: 1 mcg/kg/hr, 19.84 mls/hr Dopamine HCl/Dextrose (Dopamine 400mg/250ml D5w) 400 mg in 250 mls @ 59.534 mls /hr IV .Q4H12M PRN; Protocol; 20 MCG/KG/MIN PRN Reason: TITRATE PER MD ORDER Last Titration: 05/31/17 19:19 Dose: 15 mcg/kg/min, 44.651 mls/hr Insulin Human Regular (Novolin R) 0 unit SC Q6 ZULMA PRN Reason: Protocol Last Admin: 05/31/17 18:09 Dose: 6 unit Lorazepam (Ativan) 1 mg IVP Q6H PRN PRN Reason: Anxiety Last Admin: 05/29/17 23:12 Dose: 1 mg Metoprolol Tartrate (Lopressor) 12.5 mg NG BID ZULMA Last Admin: 05/31/17 18:11 Dose: Not Given Midazolam HCl (Versed Inj) 2 mg IVP Q4H ZULMA Last Admin: 05/31/17 15:50 Dose: 2 mg Morphine Sulfate (Morphine) 2 mg IVP Q4 PRN PRN Reason: Pain, moderate (4-7) Last Admin: 05/30/17 04:29 Dose: 2 mg Rosuvastatin Calcium (Crestor) 20 mg PO HS ZULMA Last Admin: 05/30/17 22:17 Dose: 20 mg - Labs Labs: 05/31/17 06:18 05/31/17 06:16 PT 19.2 SECONDS (9.7-12.2) H D 05/31/17 14:25 INR 1.7 D 05/31/17 14:25 APTT 18 SECONDS (21-34) L 05/28/17 18:02 - Constitutional Appears: Toxic, In Acute Distress, Unkempt - Head Exam Head Exam: NORMAL INSPECTION - Eye Exam Pupil Exam: PERRL - Neck Exam Neck Exam: Normal Inspection - Respiratory Exam Respiratory Exam: Rales, Respiratory Distress - Cardiovascular Exam Cardiovascular Exam: Tachycardia, Irregular Rhythm, +S1, +S2, +S4, Murmur - GI/Abdominal Exam GI & Abdominal Exam: Soft, Hypoactive Bowel Sounds - Neurological Exam Neurological Exam: Altered - Skin Skin Exam: Pallor Assessment and Plan (1) Cardiogenic shock Assessment & Plan: IABP removed due to thrombocytopenia on pressors ( phenyephrine ) Status: Acute (2) Acute SC Assessment & Plan: EF 20-25% cont DAPT Status: Acute (3) S/P angioplasty Assessment & Plan: BB held due to low BP and shock Status: Acute (4) Shock liver Assessment & Plan: statins on hold Status: Acute
[2017-06-01] MEDS: (Novolin R) Insulin Human Regular 100 units/ml vial SC SCH (00:11)
--- NOTE | 2017-06-01 00:11 | CON ---
RENAL CONSULTATION LOCATION: The patient is located in ICU, room #18. REQUESTED BY: Dr. Hermilo Ramos. REASON FOR CONSULTATION: Acute renal failure, for further evaluation. HISTORY OF PRESENT ILLNESS: Mr. Staples is a 71-year-old male with a past medical history significant for hypertension, diabetes, hyperlipidemia, peripheral vascular disease, was brought to the emergency room via EMS for evaluation of chest pain which began prior to the arrival according to the patient's family and he collapsed at home and EMS was called on site. Notification was given regarding the [facility] prior to the patient's arrival. Upon ED arrival, the patient was found to be diaphoretic, hypertensive, lethargic, bradycardic. The patient was intubated upon arrival and atropine, and transvenous pacemaker was initiated with limited history provided. Subsequently, the patient was found to have elevated troponin levels and the patient was taken to the cardiac cath. The patient was found to have 100% occluded left circumflex coronary artery which was successfully opened with balloon angioplasty restoring circulation to the left dominant system of the heart and he subsequently underwent stenting of the left circumflex coronary artery with 2 drug-eluting stents. The patient also developed hypertension during the procedure and the patient was placed on intraaortic balloon pump. Subsequently, the patient was taken off dopamine drip post angioplasty and taken to the ICU with intraaortic balloon. The patient is on ventilator. The patient is arousable for the verbal stimuli, unable to get much history from the patient and chart reviewed, and the history obtained from the review of the chart. The patient is not in acute distress. PAST MEDICAL HISTORY: Significant for hypertension, diabetes, hyperlipidemia, peripheral vascular disease. PAST SURGICAL HISTORY: Amputation of the left third toe. ALLERGIES: NO KNOWN DRUG ALLERGIES. SOCIAL HISTORY: Unknown if he has smoked and drug abuse. FAMILY HISTORY: Not significant. MEDICATIONS: His current medications include as follows, amiodarone 900 mg at 33 mL per hour, aspirin 81 mg daily, Ativan 1 mg IV q. 6 hours, Crestor 20 mg p.o. at bedtime, IV fluids D5 normal saline at 60 mL per hour, propofol, DuoNeb inhaler, metoprolol 12.5 mg b.i.d., morphine 2 mg IV q. 4 hours, Pepcid 20 mg IV daily, phenylephrine, Zosyn 3.375 g q. 6 hours, and Plavix 75 mg p.o. daily. REVIEW OF SYSTEMS: Significant for collapse and chest pain on admission, and the patient is also on respirator. All other review of systems are reviewed and as per HPI. PHYSICAL EXAMINATION: VITAL SIGNS: His blood pressure 134/82, pulse 131, respirations 23, temperature 98.4, height 5 feet 9 inches, weight is 166 pounds. GENERAL: Mr. Staples is a 71-year-old elderly male, moderately developed, moderately nourished, not in acute distress, on ventilator. HEENT: Pupils are normal and reactive to light and accommodation. Conjunctivae pink. Sclerae anicteric. Tongue is moist, intubated, and trachea is midline. LUNGS: Symmetry on both sides. Slightly decreased breath sounds on the left side. Normal breath sounds on the right side. CVS: [place] at fifth intercostal space in midclavicular line, S1 and S2 audible. No murmur or gallop. Intraaortic balloon pump present. ABDOMEN: Soft, nontender. Bowel sounds are present. LEASING SPECIALIST: The patient is on ventilator, under sedation, arousable. EXTREMITIES: No cyanosis. No clubbing. No edema. The patient has poor dorsalis pedis pulses in both lower extremities and warm to touch, and also amputation of the left second toe. LABORATORY DATA: His current laboratory data includes as follows. As of 05/28/2017, WBC 8.7, hemoglobin 11, hematocrit 33.4, platelets 145. As of 05/29/2017, H and H are 11.3 and 34.1. As of 05/30/2017, WBC 6.1, hemoglobin 10.3, hematocrit is 30.5, platelets 65. As of 05/30/2017, sodium 140, potassium 4.5, chloride 100, CO2 22, BUN 35, creatinine 1.5, glucose 94, calcium 8.4, phosphorus 4.6, magnesium 1.8, total bilirubin 0.7, AST 1449, ALT 1369, total protein 6.1, albumin is 3.1. As of 05/28/2017, sodium 130, potassium 4.8, chloride 98, CO2 17, BUN 15, creatinine 0.5. Troponin 2.83 on admission and proBNP 3280. As of 05/28/2017, sodium 131, potassium 6.1, chloride 100, CO2 19, BUN 17, creatinine 1.1, glucose 110, calcium 7.8. As of 05/29/2017, AST is 991 and ALT is 383. . Chest x-ray as of 05/30/2017, impression, persistent complete opacification of the left hemithorax, endotracheal tube may be entering the mid thoracic trachea, NG tube may be entering the stomach, venous congestion in the right lung field, and right hilar prominence. Heart is not obscured. ASSESSMENT AND PLAN: In summary, Mr. Staples is a 71-year-old male with history of hypertension, diabetes, hyperlipidemia, peripheral vascular disease, was admitted with collapse and chest pain, intubated in the emergency room. His intake and output in the last 24 hours, intake is 2820 and output is 1223 with increased BUN and creatinine, increased LFTs, and increased troponin levels, status post cardiac catheterization on admission and placement of drug-eluting stents, 2, and also on intra-aortic balloon pump. 1. Nonoliguric acute renal failure, most likely secondary to acute tubular necrosis secondary to contrast-induced nephropathy. 2. Abnormal liver function tests, most likely secondary to shock liver. 3. Acute myocardial infarction, status post cardiac catheterization and placement of drug-eluting stents. Continue to monitor basic metabolic profile and continue intravenous fluids at 60 mL per hour. 4. Cardiomyopathy. We will follow with you. Thank you for allowing me to participate in your patient's care. Margaret Smith MD
[2017-06-01] MEDS: Dexmedetomidine Hydrochloride 200 MCG in Sodium Chloride 0.9% 48 ML IV PRN (00:12)
[2017-06-01] MEDS: Phenylephrine 30 MG in Dextrose 5% In Water 250 ML IV PRN ×2 (01:25→05:36)
[2017-06-01] MEDS: Midazolam 2 MG/2 ML VIAL IVP SCH ×2 (01:28→05:38)
--- NOTE | 2017-06-01 01:34 | PN ---
DATE: FOLLOWUP RENAL CONSULTATION LOCATION: The patient is located in ICU, bed number 18. REQUESTED BY: Dr. Hermilo Ramos. REASON FOR FOLLOWUP: Acute renal failure, for followup and further evaluation. SUBJECTIVE: Mr. Staples is a 71 years old elderly male with a past medical history significant for longstanding hypertension, diabetes, hyperlipidemia, peripheral vascular disease and status post amputation of the left second toe, who was admitted with chest pain, followed by collapse. The patient was found to have acute MS and underwent emergency cardiac cath and hypotension. Subsequently, the patient had intraaortic balloon placement and also placement of 2 drug-eluted stents in the left circumflex. The patient remains intubated and the patient also had intraaortic balloon pump this morning. Following simple commands, under sedation. PHYSICAL EXAMINATION: As follows: GENERAL: Mr. Staples is a 71 years old elderly male, on ventilator, moderately built, moderately nourished, not in acute distress, has intraaortic balloon pump. VITAL SIGNS: His blood pressure this morning is 131/73, pulse is 138, respirations are about 34, saturation is 97%, and temperature this morning is 97.9. Height is 5 feet 9 inches and weight is 175 pounds. HEENT: Pupils are normal, reactive to light and accommodation. Conjunctivae are pink. Sclerae are anicteric. No thyroid enlargement. Trachea is midline. LUNGS: Symmetric on both sides. Bilateral breath sound is present. CARDIOVASCULAR SYSTEM: [place] at the fifth intercostal space. S1 and S2 audible. No murmur and no gallop. ABDOMEN: Normal in appearance. Soft and tympanic. No guarding and No rigidity. No hepatosplenomegaly. CENTRAL NERVOUS SYSTEM: The patient is on ventilator, under sedation. EXTREMITIES: No cyanosis, no clubbing, and no edema. MEDICATIONS: His current medications include as follows: Aspirin 300 mg p.o. daily and 8, Ativan 1 mg q. 6 hours., Crestor 20 mg at bedtime, dexmedetomidine 200 mcg at 0.2 mcg/kg/hr, and IV fluids to D5 normal saline at 60 mL per hour, propofol, metoprolol, morphine, famotidine, phenylephrine, Plavix, and Versed p.r.n. LABORATORY DATA: His laboratory data include as follows: As of 05/31/2017, WBC of 5.6, hemoglobin of 9.8, hematocrit is 29, and platelets are 25. ABG, pH of 7.43, pCO2 of 25, pO2 of 184, bicarbonate is 19.9, saturation 99.1%, and vent setting, AC 16, tidal volume of 500, FiO2 of 75%, and PEEP of 5. Sodium of 133, potassium of 4.6, chloride of 106, CO2 of 14, BUN is 52, and creatinine is 1.6 with an anion gap of about 13 and glucose is 358. Calcium is 7.5, phosphorous is 4.9, and magnesium is 2.4. Total bilirubin is 0.7, AST is 2861, ALT is 2685, alkaline phosphatase is 96, total protein is 5.8, and albumin is 2.9. Blood culture as of 05/30/2017 x2 negative, day number 1. Sputum culture is pending. Urine culture is negative. MRSA screen was negative. Chest x-ray as of 05/31/2017. Impression: Improving diffuse left-sided opacity, possible left pleural effusion, congestive changes. Lines and tubes unchanged. Intake and output in the last 24 hours, intake is 4185 and output is 1040. His laboratory data is as above. ASSESSMENT: In summary, Mr. Staples is a 71 years old elderly male with a history of hypertension, diabetes, hyperlipidemia, peripheral vascular disease with acute myocardial infarction, status post cardiac catheterization and status post drug-eluting stents and intraaortic balloon pump, and respiratory failure on ventilator. 1. Nonoliguric acute renal failure, most likely secondary to acute tubular necrosis, secondary to hypotension, and contrast-induced nephropathy. 2. Hyperchloremic metabolic acidosis. 3. Thrombocytopenia. 4. Abnormal liver function tests, rule out shock liver. PLAN: Continue IV fluids and check urine electrolytes to calculate urine anion gap. We will add sodium bicarbonate 650 mg one tablet q. 8 hours. Followup LFTs and BMP in the a.m. Thank you for allowing me to participate in your patient's care. Margaret Smith MD
[2017-06-01] MEDS: DOPamine 400mg/250ml D5W 400 MG/250 ML BAG IV PRN (01:37)
[2017-06-01 01:54] VITALS: TEMP 98.1
[2017-06-01 04:24] LABS: ABG MECHANICAL RATE 24; ARTERIAL BLOOD GAS MODE PRVC; ARTERIAL BLOOD HGB O2 SAT 82.9 % (95.0-98.0); ATERIAL BLOOD GAS PEEP 5; CARBOXYHEMOGLOBIN 1.6 % (0.5-1.5); HHB 14.7 % (0.0-5.0); METHEMOGLOBIN 0.7 % (0.0-3.0)
[2017-06-01 04:32] LABS: DRAW SITE R BRACH
[2017-06-01 04:46] LABS: BASO % 0.2 % (0.0-2.0); EOS # 0.1 K/uL (0.0-0.7); MEAN CORPUSCULAR HEMOGLOBIN 29.8 pg (27.0-31.0); MEAN PLATELET VOLUME 7.3 fL (7.2-11.7); MONO # 0.3 K/uL (0.0-0.8)
[2017-06-01 04:54] LABS: HEMATOCRIT 23.4 % (35.0-51.0); LYMPH # 0.8 K/uL (1.0-4.3); LYMPH % 11.9 % (20.0-40.0); MONO % 4.9 % (0.0-10.0); NRBC % 1.7 % (0.0-2.0); RED CELL DISTRIBUTION WIDTH 16.2 % (11.5-14.5)
[2017-06-01 05:01] LABS: BILIRUBIN,TOTAL 2.2 mg/dL (0.2-1.3); CALCIUM 9.3 mg/dl (8.6-10.4); MAGNESIUM 2.7 mg/dL (1.6-2.3); PHOSPHOROUS 9.7 mg/dL (2.5-4.5); POTASSIUM 5.2 mmol/L (3.6-5.2); TOTAL PROTEIN 5.1 g/dL (6.3-8.3)
[2017-06-01] MEDS ORDERED: EPINEPHrine- 1 MG in Sodium Chloride 0.9% 250 ML IV PRN (05:13)
[2017-06-01] MEDS ORDERED: Sodium Bicarbonate (8.4%) 50 Meq Syringe ONE (05:31)
[2017-06-01 05:51] VITALS: BP 110/62; PULSE 138; RESP 24; O2SAT 45
--- NOTE | 2017-06-01 06:22 | CP.PCM.PN ---
Subjective - Date & Time of Evaluation Date of Evaluation: 06/01/17 Time of Evaluation: 06:14 - Subjective Subjective: [facility] Pt s/p multiple cardiac arrests was pulseless and asystolic. No resp. Pt pronounced . Time of 06:14 AM. Objective - Vital Signs/Intake and Output Vital Signs (last 24 hours): Temp Pulse Resp BP Pulse Ox 98.1 F 138 H 24 110/62 45 L 06/01/17 05:00 06/01/17 05:49 06/01/17 05:49 06/01/17 05:50 06/01/17 05:49 Intake and Output: 05/31/17 06/01/17 18:59 06:59 Intake Total 3084.3 3986.0 Output Total 380 70 Balance 2704.3 3916.0 - Medications Medications: Current Medications Aspirin (Aspirin Supp) 300 mg [place] DAILY [facility] Last Admin: 05/31/17 11:51 Dose: 300 mg Clopidogrel Bisulfate (Plavix) 75 mg PO DAILY [facility] Last Admin: 05/31/17 11:51 Dose: 75 mg Famotidine (Pepcid) 20 mg IVP DAILY [facility] Last Admin: 05/31/17 11:50 Dose: 20 mg Propofol (Diprivan) 1,000 mg in 100 mls @ 2.4 mls/hr IV .Q24H PRN; Protocol; 5 MCG/KG/MIN PRN Reason: TITRATE PER MD ORDER Last Titration: 05/31/17 07:45 Dose: 0 mcg/kg/min, 0 mls/hr Dextrose/Sodium Chloride (Dextrose 5%/0.9% Ns 1000 Ml) 1,000 mls @ 60 mls/hr IV .[id number] [facility] Last Admin: 05/31/17 19:07 Dose: Not Given Phenylephrine HCl 30 mg/ (Dextrose) 253 mls @ 10.12 mls/hr IV .Q24H PRN; Protocol; 20 MCG/MIN PRN Reason: TITRATE PER MD ORDER Last Admin: 06/01/17 05:36 Dose: 158.1 mcg/min, 79.99 mls/hr Dexmedetomidine HCl 200 mcg/ (Sodium Chloride) 50 mls @ 3.96 mls/hr IV TITR PRN ; Protocol; 0.2 MCG/KG/HR PRN Reason: Agitation Last Titration: 06/01/17 03:49 Dose: 0 mcg/kg/hr, 0 mls/hr Dopamine HCl/Dextrose (Dopamine 400mg/250ml D5w) 400 mg in 250 mls @ 59.534 mls /hr IV .Q4H12M PRN; Protocol; 20 MCG/KG/MIN PRN Reason: TITRATE PER MD ORDER Last Admin: 06/01/17 01:37 Dose: 20 mcg/kg/min, 59.534 mls/hr Fentanyl Citrate 2,500 mcg/ (Sodium Chloride) 250 mls @ 15.87 mls/hr IV .[id number] ZULMA; 2 MCG/KG/HR PRN Reason: Protocol Last Admin: 06/01/17 01:27 Dose: Not Given Epinephrine HCl 1 mg/ Sodium (Chloride) 251 mls @ 15.06 mls/hr IV .[id number] PRN ; Protocol; 1 MCG/MIN PRN Reason: TITRATE PER MD ORDER Last Admin: 06/01/17 05:25 Dose: 10 mcg/min, 150.6 mls/hr Insulin Human Regular (Novolin R) 0 unit SC Q6 ZULMA PRN Reason: Protocol Last Admin: 06/01/17 00:11 Dose: Not Given Lorazepam (Ativan) 1 mg IVP Q6H PRN PRN Reason: Anxiety Last Admin: 05/29/17 23:12 Dose: 1 mg Metoprolol Tartrate (Lopressor) 12.5 mg NG BID ZULMA Last Admin: 05/31/17 18:11 Dose: Not Given Midazolam HCl (Versed Inj) 2 mg IVP Q4H ZULMA Last Admin: 06/01/17 05:38 Dose: Not Given Morphine Sulfate (Morphine) 2 mg IVP Q4 PRN PRN Reason: Pain, moderate (4-7) Last Admin: 05/30/17 04:29 Dose: 2 mg Rosuvastatin Calcium (Crestor) 20 mg PO HS ZULMA Last Admin: 05/31/17 22:59 Dose: 20 mg Sodium Bicarbonate (Sodium Bicarbonate Tab) 650 mg PO Q6 ZULMA Last Admin: 06/01/17 05:40 Dose: Not Given - Labs Labs: 06/01/17 04:43 05/31/17 06:16 PT 19.2 SECONDS (9.7-12.2) H D 05/31/17 14:25 INR 1.7 D 05/31/17 14:25 APTT 18 SECONDS (21-34) L 05/28/17 18:02
--- NOTE | 2017-06-01 23:00 | CP.PCM.DIS ---
Provider - Provider Date of Admission: 05/28/17 18:33 Attending physician: Hermilo Ramos MD Diagnosis - Discharge Diagnosis (1) Endotracheally intubated Status: Acute (2) Hypotension Status: Acute (3) Acute [place] Status: Acute (4) S/P angioplasty Status: Acute Hospital Course - Lab Results Lab Results: Micro Results 05/30/17 13:30 Blood-Venous Blood Culture - Preliminary NO GROWTH AFTER 48 HOURS 05/30/17 13:00 Blood-Venous Blood Culture - Preliminary NO GROWTH AFTER 48 HOURS 05/30/17 16:10 Trachasp Gram Stain - Final 05/30/17 16:10 Trachasp Sputum Culture - Preliminary Gram Negative Theodore Gram Negative Theodore#2 05/30/17 12:45 Urine,Sifuentes Urine Culture - Final No Growth (<1,000 CFU/ML) 05/29/17 Unknown Naris MRSA Culture (Admit) - Final MRSA NOT DETECTED Most Recent Lab Values WBC 7.0 K/uL (4.8-10.8) 06/01/17 04:43 RBC 2.52 Mil/uL (4.40-5.90) L 06/01/17 04:43 Hgb 7.5 g/dL (12.0-18.0) L D 06/01/17 04:43 Hct 23.4 % (35.0-51.0) L 06/01/17 04:43 MCV 93.0 fL (80.0-94.0) D 06/01/17 04:43 MCH 29.8 pg (27.0-31.0) 06/01/17 04:43 MCHC 32.0 g/dL (33.0-37.0) L 06/01/17 04:43 RDW 16.2 % (11.5-14.5) H 06/01/17 04:43 Plt Count 17 K/uL (130-400) L* D 06/01/17 04:43 MPV 7.3 fL (7.2-11.7) 06/01/17 04:43 Neut % (Auto) 81.0 % (50.0-75.0) H 06/01/17 04:43 Lymph % (Auto) 11.9 % (20.0-40.0) L 06/01/17 04:43 Mckean % (Auto) 4.9 % (0.0-10.0) 06/01/17 04:43 Eos % (Auto) 2.0 % (0.0-4.0) 06/01/17 04:43 Baso % (Auto) 0.2 % (0.0-2.0) 06/01/17 04:43 Neut # 5.7 K/uL (1.8-7.0) 06/01/17 04:43 Lymph # 0.8 K/uL (1.0-4.3) L 06/01/17 04:43 Mckean # 0.3 K/uL (0.0-0.8) 06/01/17 04:43 Eos # 0.1 K/uL (0.0-0.7) 06/01/17 04:43 Baso # 0.0 K/uL (0.0-0.2) 06/01/17 04:43 Neutrophils % (Manual) 82 % (50-75) H 05/30/17 05:59 Band Neutrophils % 4 % (0-2) H 05/30/17 05:59 Lymphocytes % (Manual) 9 % (20-40) L 05/30/17 05:59 Monocytes % (Manual) 5 % (0-10) 05/30/17 05:59 Basophils % (Manual) 1 % (0-2) 05/28/17 23:22 Differential Comment 05/31/17 06:18 Platelet Estimate Decreased (NORMAL) L 05/30/17 05:59 Hypochromasia (manual) Slight 05/30/17 05:59 Poikilocytosis (manual Slight 05/30/17 05:59 Anisocytosis (manual) Slight 05/30/17 05:59 Ovalocytes Slight 05/29/17 06:22 PT 19.2 SECONDS (9.7-12.2) H D 05/31/17 14:25 INR 1.7 D 05/31/17 14:25 APTT 18 SECONDS (21-34) L 05/28/17 18:02 Puncture Site R brach 06/01/17 04:20 pCO2 41 mm/Hg (35-45) 06/01/17 04:20 pO2 62 mm/Hg (80-100) L 06/01/17 04:20 HCO3 8.7 mmol/L (21-28) L* 06/01/17 04:20 ABG pH 6.98 (7.35-7.45) L* 06/01/17 04:20 ABG Total CO2 11.0 mmol/L (22-28) L 06/01/17 04:20 ABG O2 Saturation 84.9 % (95-98) L 06/01/17 04:20 ABG Base Excess -20.5 mmol/L (-2.0-3.0) L 06/01/17 04:20 ABG Hemoglobin 7.8 g/dL (11.7-17.4) L 06/01/17 04:20 ABG Carboxyhemoglobin 1.6 % (0.5-1.5) H 06/01/17 04:20 POC ABG HHb (Measured) 14.7 % (0.0-5.0) H 06/01/17 04:20 ABG Methemoglobin 0.7 % (0.0-3.0) 06/01/17 04:20 Bhanu Test Na 06/01/17 04:20 A-a O2 Difference 600.0 mm/Hg 06/01/17 04:20 Respiratory Index 9.7 06/01/17 04:20 Hgb O2 Saturation 82.9 % (95.0-98.0) L 06/01/17 04:20 Vent Mode Prvc 06/01/17 04:20 Mechanical Rate 24 06/01/17 04:20 FiO2 100.0 % 06/01/17 04:20 Tidal Volume 450 06/01/17 04:20 PEEP 5 06/01/17 04:20 Crit Value Called To Dr ch 06/01/17 04:20 Crit Value Called By Fariha vazquez rt 06/01/17 04:20 Crit Value Read Back Y 06/01/17 04:20 Blood Gas Notified Time 423 06/01/17 04:20 Sodium 137 mmol/L (132-148) 06/01/17 04:43 Potassium 5.2 mmol/L (3.6-5.2) 06/01/17 04:43 Chloride 100 mmol/L (98-107) 06/01/17 04:43 Carbon Dioxide 14 mmol/L (22-30) L 06/01/17 04:43 Anion Gap 28 (10-20) H 06/01/17 04:43 BUN 58 mg/dL (9-20) H 06/01/17 04:43 Creatinine 3.0 MG/DL (0.8-1.5) H 06/01/17 04:43 Est GFR ( Amer) 25 06/01/17 04:43 Est GFR (Non-Af Amer) 21 06/01/17 04:43 POC Glucose (mg/dL) 90 mg/dL (65-110) 06/01/17 04:15 Random Glucose 260 mg/dL (75-110) H 06/01/17 04:43 Hemoglobin A1c 9.4 % (4.2-6.5) H 05/29/17 06:22 Calcium 9.3 mg/dl (8.6-10.4) 06/01/17 04:43 Phosphorus 9.7 mg/dL (2.5-4.5) H 06/01/17 04:43 Magnesium 2.7 mg/dL (1.6-2.3) H 06/01/17 04:43 Total Bilirubin 2.2 mg/dL (0.2-1.3) H 06/01/17 04:43 AST 9421 U/L (17-59) H 06/01/17 04:43 ALT 5523 U/L (21-72) H 06/01/17 04:43 Alkaline Phosphatase 93 U/L (38-126) 06/01/17 04:43 Troponin I 645.0000 ng/mL (0.00-0.120) H* 05/29/17 06:22 NT-Pro-B Natriuret Pep 3280 pg/mL (0-900) H 05/28/17 18:02 Total Protein 5.1 g/dL (6.3-8.3) L 06/01/17 04:43 Albumin 2.6 g/dL (3.5-5.0) L 06/01/17 04:43 Globulin 2.5 gm/dL (2.2-3.9) 06/01/17 04:43 Albumin/Globulin Ratio 1.0 (1.0-2.1) 06/01/17 04:43 Urine Color Tamy (YELLOW) 05/30/17 13:16 Urine Clarity Hazy (Clear) 05/30/17 13:16 Urine pH 5.0 (5.0-8.0) 05/30/17 13:16 Ur Specific [place] 1.034 (1.003-1.030) H 05/30/17 13:16 Urine Protein 2+ mg/dL (NEGATIVE) H 05/30/17 13:16 Urine Glucose (UA) 1+ mg/dL (Normal) H 05/30/17 13:16 Urine Ketones Trace mg/dL (NEGATIVE) 05/30/17 13:16 Urine Blood 2+ (NEGATIVE) H 05/30/17 13:16 Urine Nitrate Negative (NEGATIVE) 05/30/17 13:16 Urine Bilirubin Negative (NEGATIVE) 05/30/17 13:16 Urine Urobilinogen Normal mg/dL (0.2-1.0) 05/30/17 13:16 Ur Leukocyte Esterase Neg Kumar/uL (Negative) 05/30/17 13:16 Urine WBC (Auto) 8 /hpf (0-5) H 05/30/17 13:16 Urine RBC (Auto) 80 /hpf (0-3) H 05/30/17 13:16 Ur Squamous Epith Cells 1 /hpf (0-5) 05/30/17 13:16 Amorphous Sediment Rare /ul (<OCC) H 05/30/17 13:16 Urine Bacteria Few (<OCC) H 05/29/17 10:34 Ur Random Creatinine 155.8 mg/dL 05/29/17 20:05 Ur Random Sodium 11 mmol/L 05/31/17 22:26 Ur Random Potassium 74.9 mmol/L 05/31/17 22:26 Blood Type A POSITIVE 05/28/17 18:30 Antibody Screen Negative 05/28/17 18:30 Discharge Exam - Head Exam Head Exam: NORMAL INSPECTION Discharge Plan - Follow Up Plan Condition: CRITICAL Disposition: WITH WITHOUT AUTOPSY
--- NOTE | 2017-06-02 10:18 | CARD ---
APPROVED REPORT EKG Measurement Heart [id number] <Conclusion> Sinus tachycardia Indeterminate axis Low voltage QRS Inferior infarct, age undetermined Marked ST abnormality, possible anterior subendocardial injury Abnormal ECG
== END 2017-06-01 06:14 | DRG 549 ==
LOC: C.ER 17:51 → C.9I 18:33
PROVIDERS: ADMIT Internal Medicine; ATTEND Internal Medicine
PROC: 0BH17EZ Insertion of Endotracheal Airway into Trachea, Via Natural or Artificial Opening (ICD-10-PCS; 2017-05-28)
PROC: 5A1945Z Respiratory Ventilation, 24-96 Consecutive Hours (ICD-10-PCS; 2017-05-28)
PROC: 02HV33Z Insertion of Infusion Device into Superior Vena Cava, Percutaneous Approach (ICD-10-PCS; 2017-05-28)
PROC: 4A023N8 Measurement of Cardiac Sampling and Pressure, Bilateral, Percutaneous Approach (ICD-10-PCS; principal; 2017-05-29)
PROC: 027035Z Dilation of Coronary Artery, One Artery with Two Drug-eluting Intraluminal Devices, Percutaneous Approach (ICD-10-PCS; 2017-05-29)
PROC: 5A02210 Assistance with Cardiac Output using Balloon Pump, Continuous (ICD-10-PCS; 2017-05-29)
PROC: B2161ZZ Fluoroscopy of Right and Left Heart using Low Osmolar Contrast (ICD-10-PCS; 2017-05-29)
PROC: B2111ZZ Fluoroscopy of Multiple Coronary Arteries using Low Osmolar Contrast (ICD-10-PCS; 2017-05-29)
DX: I21.09 ST elevation (STEMI) myocardial infarction involving other coronary artery of anterior wall (principal); K72.00 Acute and subacute hepatic failure without coma; J96.00 Acute respiratory failure, unspecified whether with hypoxia or hypercapnia; N17.0 Acute kidney failure with tubular necrosis; R57.0 Cardiogenic shock; E87.2 Acidosis; D69.59 Other secondary thrombocytopenia; I50.21 Acute systolic (congestive) heart failure; I11.0 Hypertensive heart disease with heart failure; E11.51 Type 2 diabetes mellitus with diabetic peripheral angiopathy without gangrene; I42.2 Other hypertrophic cardiomyopathy; I25.110 Atherosclerotic heart disease of native coronary artery with unstable angina pectoris; E78.5 Hyperlipidemia, unspecified; I47.1 Supraventricular tachycardia; I48.91 Unspecified atrial fibrillation; Z79.01 Long term (current) use of anticoagulants; Z89.422 Acquired absence of other left toe(s); Z87.891 Personal history of nicotine dependence; Z77.22 Contact with and (suspected) exposure to environmental tobacco smoke (acute) (chronic); Z79.4 Long term (current) use of insulin